=== PATIENT | male | born 1965 | race Caucasian/White ===

== ENCOUNTER 2016-09-09 19:13 | Inpatient (IN) | payer MEDICAID, OTHER ==
[~2016-09-09] VITALS: Ht 180.3 cm; Wt 79.0 kg
[~2016-09-09 19:13] MED LIST: FLUO-191 PO; LISI-661 PO; OLAN10TA3 PO; PROP10 PO
[2016-09-09 20:36] LABS: BASOPHILS % (AUTO) 0.3 % (0.0-2.0); EOSINOPHILS % (AUTO) 0.5 % (1.0-6.0); HEMATOCRIT 43.9 % (41-53); HEMOGLOBIN 14.5 g/dL (13.5-17.5); LYMPHOCYTES # (AUTO) 2.7 K/uL (1.0-4.8); LYMPHOCYTES % (AUTO) 25.7 % (22.0-44.0); MEAN CORPUSCULAR HEMOGLOBIN 29.3 pg (26.0-34.0); MEAN CORPUSCULAR VOLUME 89 fL (80-100); MONOCYTES # (AUTO) 0.6 K/uL (0.1-1.0); MONOCYTES % (AUTO) 5.9 % (2.0-9.0); NEUTROPHILS % (AUTO) 67.6 % (40.0-70.0); PLATELET COUNT (AUTO) 392 K/uL (150-450); RED BLOOD CELL COUNT(AUTO) 4.95 MIL/uL (4.50-5.90); RED CELL DISTRIBUTION WIDTH 15.1 % (11.5-14.5); WHITE BLOOD COUNT (AUTO) 10.4 K/uL (4.5-11.0)
[2016-09-09 20:47] LABS: ANION GAP 7 mmol/L (8-16); CALCIUM, TOTAL 9.5 mg/dL (8.8-10.5); CARBON DIOXIDE 28 mmol/L (22-29); CHLORIDE 101 mmol/L (98-107); CREATININE 1.38 mg/dL (0.60-1.30); GLOMERULAR FILTR. RATE CALC 55 mL/min (>60); POTASSIUM 4.3 mmol/L (3.5-5.1); SODIUM SERUM 136 mmol/L (136-145); UREA NITROGEN, BLOOD 21 mg/dL (7-18)
[2016-09-09 20:52] LABS: ALANINE AMINOTRANSFERASE 54 U/L (12-78); ALBUMIN 3.9 g/dL (3.4-5.0); ASPARTATE AMINOTRANSFERASE 28 U/L (15-37); BILIRUBIN,TOTAL 0.4 mg/dL (0.1-1.0); TOTAL PROTEIN, SERUM 7.6 g/dL (6.4-8.2)
[2016-09-09] MEDS ORDERED: DiphenhydrAMINE HCL 25 MG CAPSULE PO ONE (21:15)
[2016-09-09] MEDS ORDERED: HALOPERIDOL 5 MG TABLET PO ONE (21:15)
[2016-09-09] MEDS ORDERED: LORazepam 2 MG TABLET PO ONE (21:15)
[2016-09-10 09:41] VITALS: BP 138/70
[2016-09-10 13:57] VITALS: BP 138/85
[2016-09-10 16:22] VITALS: BP 122/73
[2016-09-10] MEDS: HALOPERIDOL 5 MG TABLET PO PRN (17:07)
[2016-09-10] MEDS: PROPRANOLOL HCL 20 MG TABLET PO SCH (17:07)
[2016-09-10] MEDS: LORazepam 2 MG TABLET PO PRN (17:07)
[2016-09-10] MEDS: ZOLPIDEM TARTRATE 10 MG TABLET PO PRN (20:55)
[2016-09-10] MEDS: OLANZapine 10 MG TABLET PO SCH (20:55)
[2016-09-11 06:49] VITALS: BP 126/87
[2016-09-11 08:15] VITALS: BP 134/79
[2016-09-11 08:35] LABS: ALANINE AMINOTRANSFERASE 45 U/L (12-78); ALBUMIN 3.6 g/dL (3.4-5.0); ANION GAP 10 mmol/L (8-16); ASPARTATE AMINOTRANSFERASE 21 U/L (15-37); BILIRUBIN,TOTAL 0.2 mg/dL (0.1-1.0); CALCIUM, TOTAL 9.2 mg/dL (8.8-10.5); CARBON DIOXIDE 25 mmol/L (22-29); CHLORIDE 104 mmol/L (98-107); CREATININE 1.13 mg/dL (0.60-1.30); GLOMERULAR FILTR. RATE CALC > 60 mL/min (>60); POTASSIUM 4.3 mmol/L (3.5-5.1); SODIUM SERUM 139 mmol/L (136-145); TOTAL PROTEIN, SERUM 6.7 g/dL (6.4-8.2); UREA NITROGEN, BLOOD 18 mg/dL (7-18)
[2016-09-11] MEDS: PROPRANOLOL HCL 20 MG TABLET PO SCH ×2 (09:56→16:32)
[2016-09-11] MEDS: FLUoxetine HCL 20 MG CAPSULE PO SCH (09:56)
[2016-09-11] MEDS: LISINOPRIL 10 MG TABLET PO SCH (09:56)
[2016-09-11 16:00] VITALS: BP 116/66
[2016-09-11] MEDS: HALOPERIDOL 5 MG TABLET PO PRN (16:32)
[2016-09-11] MEDS: LORazepam 2 MG TABLET PO PRN (16:32)
[2016-09-11] MEDS: ZOLPIDEM TARTRATE 10 MG TABLET PO PRN (20:28)
[2016-09-11] MEDS: OLANZapine 10 MG TABLET PO SCH (20:28)
[2016-09-12 06:34] VITALS: BP 118/69
[2016-09-12 08:15] VITALS: BP 114/61
[2016-09-12] MEDS: PROPRANOLOL HCL 20 MG TABLET PO SCH ×2 (09:00→17:10)
[2016-09-12] MEDS: FLUoxetine HCL 20 MG CAPSULE PO SCH (09:00)
[2016-09-12] MEDS: LISINOPRIL 10 MG TABLET PO SCH (09:00)
[2016-09-12] MEDS: LORazepam 2 MG TABLET PO PRN ×2 (14:09→20:28)
[2016-09-12 16:12] VITALS: BP 108/70
[2016-09-12] MEDS: OLANZapine 10 MG TABLET PO SCH (20:28)
[2016-09-12] MEDS: ZOLPIDEM TARTRATE 10 MG TABLET PO PRN (20:28)
[2016-09-13 06:45] VITALS: BP 126/83
[2016-09-13 08:45] VITALS: BP 121/89
[2016-09-13] MEDS: LORazepam 2 MG TABLET PO PRN ×3 (10:09→22:30)
[2016-09-13] MEDS: HALOPERIDOL 5 MG TABLET PO PRN ×2 (10:09→18:30)
[2016-09-13] MEDS: LISINOPRIL 10 MG TABLET PO SCH (10:09)
[2016-09-13] MEDS: FLUoxetine HCL 20 MG CAPSULE PO SCH (10:09)
[2016-09-13] MEDS: PROPRANOLOL HCL 20 MG TABLET PO SCH ×2 (10:09→17:05)
[2016-09-13] MEDS ORDERED: PROP20 PO (11:11)
[2016-09-13] MEDS ORDERED: INFLUENZA VIRUS VACCINE QVS 2016-17 (3YR+)/PF 60 MCG/0.5 ML SYRINGE IM ONE (11:15)
[2016-09-13 16:15] VITALS: BP 120/63
[2016-09-13] MEDS: ZOLPIDEM TARTRATE 10 MG TABLET PO PRN (20:15)
[2016-09-13] MEDS: OLANZapine 10 MG TABLET PO SCH (20:15)
[2016-09-14 06:39] VITALS: BP 132/88
[2016-09-14 08:15] VITALS: BP 116/76
[2016-09-14] MEDS: FLUoxetine HCL 20 MG CAPSULE PO SCH (09:40)
[2016-09-14] MEDS: PROPRANOLOL HCL 20 MG TABLET PO SCH (09:40)
[2016-09-14] MEDS: LORazepam 2 MG TABLET PO PRN (09:40)
[2016-09-14] MEDS: LISINOPRIL 10 MG TABLET PO SCH (09:40)
[2016-09-14] MEDS: HALOPERIDOL 5 MG TABLET PO PRN (09:40)
== END 2016-09-14 10:00 | disposition home or self-care (01) | DRG 750 ==
LOC: EMS 19:16 → AHU 09-10 07:56 → B3A 09-10 13:06
PROVIDERS: ADMIT Psychiatry & Neurology Psychiatry; ATTEND Psychiatry & Neurology Psychiatry
DX: F25.9 Schizoaffective disorder, unspecified (principal); R45.851 Suicidal ideations; G62.9 Polyneuropathy, unspecified; I10 Essential (primary) hypertension; F17.210 Nicotine dependence, cigarettes, uncomplicated; F11.90 Opioid use, unspecified, uncomplicated; Z79.899 Other long term (current) drug therapy; F32.9 Major depressive disorder, single episode, unspecified; Z28.20 Immunization not carried out because of patient decision for unspecified reason
CPT/HCPCS: 87081; 90471; 99285; G0480

== ENCOUNTER 2016-09-30 14:48 | Inpatient (IN) | payer MEDICAID, OTHER ==
[~2016-09-30] VITALS: Ht 180.3 cm; Wt 85.7 kg
[~2016-09-30 14:48] MED LIST changes: -PROP10 PO; +PROP20 PO
[2016-09-30] MEDS ORDERED: DOXY100C40 PO (15:31)
[2016-09-30] MEDS ORDERED: OLAN5TAB2 PO (15:31)
[2016-09-30] MEDS ORDERED: BENZ1TAB10 PO (15:31)
[2016-09-30] MEDS ORDERED: CEPH500 PO (15:31)
[2016-09-30 15:35] LABS: BASOPHILS % (AUTO) 0.5 % (0.0-2.0); EOSINOPHILS % (AUTO) 0.8 % (1.0-6.0); HEMATOCRIT 42.4 % (41-53); HEMOGLOBIN 13.8 g/dL (13.5-17.5); LYMPHOCYTES # (AUTO) 1.5 K/uL (1.0-4.8); LYMPHOCYTES % (AUTO) 19.7 % (22.0-44.0); MEAN CORPUSCULAR HEMOGLOBIN 28.9 pg (26.0-34.0); MEAN CORPUSCULAR HGB CONC 32.5 G/dL (31.0-37.0); MEAN CORPUSCULAR VOLUME 89 fL (80-100); MONOCYTES # (AUTO) 0.5 K/uL (0.1-1.0); MONOCYTES % (AUTO) 7.2 % (2.0-9.0); NEUTROPHILS # (AUTO) 5.4 K/uL (1.8-7.7); NEUTROPHILS % (AUTO) 71.8 % (40.0-70.0); PLATELET COUNT (AUTO) 286 K/uL (150-450); RED BLOOD CELL COUNT(AUTO) 4.76 MIL/uL (4.50-5.90); RED CELL DISTRIBUTION WIDTH 15.8 % (11.5-14.5); WHITE BLOOD COUNT (AUTO) 7.6 K/uL (4.5-11.0)
[2016-09-30 16:17] LABS: ANION GAP 11 mmol/L (8-16); CALCIUM, TOTAL 9.3 mg/dL (8.8-10.5); CARBON DIOXIDE 27 mmol/L (22-29); CHLORIDE 99 mmol/L (98-107); CREATININE 1.28 mg/dL (0.60-1.30); GLOMERULAR FILTR. RATE CALC 59 mL/min (>60); POTASSIUM 4.4 mmol/L (3.5-5.1); SODIUM SERUM 137 mmol/L (136-145); UREA NITROGEN, BLOOD 22 mg/dL (7-18)
[2016-09-30 16:24] LABS: ALANINE AMINOTRANSFERASE 24 U/L (12-78); ALBUMIN 3.9 g/dL (3.4-5.0); ASPARTATE AMINOTRANSFERASE 21 U/L (15-37); TOTAL PROTEIN, SERUM 7.5 g/dL (6.4-8.2)
[2016-09-30 16:36] LABS: BILIRUBIN,TOTAL 0.2 mg/dL (0.1-1.0)
[2016-09-30] MEDS ORDERED: OLANZapine 5 MG TABLET PO ONE (18:45)
[2016-09-30] MEDS ORDERED: LORazepam 2 MG TABLET PO ONE (18:45)
[2016-09-30] MEDS ORDERED: ZOLPIDEM TARTRATE 10 MG TABLET PO PRN (19:30)
[2016-09-30 21:05] VITALS: BP 131/81
[2016-09-30] MEDS: OLANZapine 10 MG TABLET PO SCH (21:20)
[2016-09-30] MEDS ORDERED: INFLUENZA VIRUS VACCINE QVS 2016-17 (3YR+)/PF 60 MCG/0.5 ML SYRINGE IM ONE (21:30)
[2016-10-01 06:51] VITALS: BP 122/75
[2016-10-01 08:15] VITALS: BP 125/65
[2016-10-01] MEDS: FLUoxetine HCL 20 MG CAPSULE PO SCH (09:01)
[2016-10-01] MEDS: NICOTINE 21 MG/24 HOUR PATCH TD SCH (09:07)
[2016-10-01] MEDS: BACITRACIN 28.4 GM OINTMENT TP SCH ×2 (09:08→17:04)
[2016-10-01 13:47] VITALS: BP 125/83
[2016-10-01 16:00] VITALS: BP 128/71
[2016-10-01] MEDS: OLANZapine 10 MG TABLET PO SCH (21:35)
[2016-10-02 08:02] VITALS: BP 112/60
[2016-10-02] MEDS: LORazepam 2 MG TABLET PO PRN (08:09)
[2016-10-02] MEDS: HALOPERIDOL 5 MG TABLET PO PRN (08:09)
[2016-10-02] MEDS: FLUoxetine HCL 20 MG CAPSULE PO SCH (08:09)
[2016-10-02] MEDS: NICOTINE 21 MG/24 HOUR PATCH TD SCH (08:13)
[2016-10-02] MEDS: BACITRACIN 28.4 GM OINTMENT TP SCH ×2 (11:09→16:07)
[2016-10-02 18:23] VITALS: BP 119/74
[2016-10-02] MEDS: OLANZapine 10 MG TABLET PO SCH (20:22)
[2016-10-03 08:00] VITALS: BP 126/75
[2016-10-03] MEDS: FLUoxetine HCL 20 MG CAPSULE PO SCH (09:37)
[2016-10-03] MEDS: NICOTINE 21 MG/24 HOUR PATCH TD SCH (09:38)
[2016-10-03] MEDS: LORazepam 2 MG TABLET PO PRN (09:39)
[2016-10-03] MEDS: BACITRACIN 28.4 GM OINTMENT TP SCH ×2 (09:56→16:20)
[2016-10-03 17:13] VITALS: BP 122/69
[2016-10-03] MEDS: OLANZapine 10 MG TABLET PO SCH (20:26)
[2016-10-04] MEDS: FLUoxetine HCL 20 MG CAPSULE PO SCH (08:53)
[2016-10-04] MEDS: NICOTINE 21 MG/24 HOUR PATCH TD SCH (08:53)
[2016-10-04] MEDS: BACITRACIN 28.4 GM OINTMENT TP SCH ×2 (08:58→15:58)
[2016-10-04 09:42] VITALS: BP 112/76
[2016-10-04] MEDS: LORazepam 2 MG TABLET PO PRN (15:56)
[2016-10-04 16:41] VITALS: BP 120/66
[2016-10-04] MEDS: OLANZapine 10 MG TABLET PO SCH (20:29)
[2016-10-05 08:30] VITALS: BP 119/74
[2016-10-05] MEDS: FLUoxetine HCL 20 MG CAPSULE PO SCH (09:14)
[2016-10-05] MEDS: NICOTINE 21 MG/24 HOUR PATCH TD SCH (09:16)
[2016-10-05] MEDS: LORazepam 2 MG TABLET PO PRN (09:16)
[2016-10-05] MEDS: BACITRACIN 28.4 GM OINTMENT TP SCH ×2 (09:16→17:22)
[2016-10-05 17:21] VITALS: BP 123/74
[2016-10-05] MEDS: OLANZapine 10 MG TABLET PO SCH (21:11)
[2016-10-06] MEDS: FLUoxetine HCL 20 MG CAPSULE PO SCH (09:12)
[2016-10-06] MEDS: LORazepam 2 MG TABLET PO PRN ×3 (09:12→20:02)
[2016-10-06] MEDS: NICOTINE 21 MG/24 HOUR PATCH TD SCH (09:14)
[2016-10-06] MEDS: BACITRACIN 28.4 GM OINTMENT TP SCH ×2 (09:14→16:24)
[2016-10-06 11:20] VITALS: BP 124/58
[2016-10-06] MEDS: HALOPERIDOL 5 MG TABLET PO PRN (18:05)
[2016-10-06] MEDS: OLANZapine 10 MG TABLET PO SCH (20:03)
[2016-10-06 22:10] VITALS: BP 119/64
[2016-10-07] MEDS: LORazepam 2 MG TABLET PO PRN ×2 (09:06→13:12)
[2016-10-07] MEDS: NICOTINE 21 MG/24 HOUR PATCH TD SCH (09:06)
[2016-10-07] MEDS: FLUoxetine HCL 20 MG CAPSULE PO SCH (09:06)
[2016-10-07 09:22] VITALS: BP 143/78
[2016-10-07] MEDS: BACITRACIN 28.4 GM OINTMENT TP SCH (09:52)
[2016-10-07] MEDS ORDERED: BACI1POW2 TP (12:15)
[2016-10-07] MEDS ORDERED: GABA-533 PO (23:23)
[2016-10-07] MEDS ORDERED: PROP20 PO (23:23)
[2016-10-07] MEDS ORDERED: LISI-662 PO (23:23)
== END 2016-10-07 15:00 | disposition home or self-care (01) | DRG 750 ==
LOC: EMS 14:49 → EEVIPCON 14:49 → B2S 20:00 → 3EI 10-01 13:10
PROVIDERS: ADMIT Psychiatry & Neurology Psychiatry; ATTEND Psychiatry & Neurology Psychiatry
DX: F25.9 Schizoaffective disorder, unspecified (principal); R45.851 Suicidal ideations; G62.9 Polyneuropathy, unspecified; I10 Essential (primary) hypertension; F15.90 Other stimulant use, unspecified, uncomplicated; F32.9 Major depressive disorder, single episode, unspecified; F17.210 Nicotine dependence, cigarettes, uncomplicated; Z59.0 Homelessness; Z79.899 Other long term (current) drug therapy; Z91.14 Patient's other noncompliance with medication regimen
CPT/HCPCS: 87081; 99285; 99406; G0480

== ENCOUNTER 2016-10-07 23:11 | Inpatient (IN) | payer MEDICAID, OTHER ==
[~2016-10-07] VITALS: Ht 177.8 cm; Wt 88.3 kg
[~2016-10-07 23:11] MED LIST changes: +BACI1POW2 TP; +BENZ1TAB10 PO; +CEPH500 PO; +DOXY100C40 PO; +OLAN5TAB2 PO
[2016-10-07] MEDS ORDERED: GABA-533 PO (23:23)
[2016-10-07] MEDS ORDERED: PROP20 PO (23:23)
[2016-10-07] MEDS ORDERED: LISI-662 PO (23:23)
[2016-10-08 00:01] LABS: BASOPHILS # (AUTO) 0.04 K/uL (0.00-0.20); BASOPHILS % (AUTO) 0.3 % (0.0-2.0); EOSINOPHILS % (AUTO) 0.85 % (1.0-6.0); HEMATOCRIT 39.6 % (41-53); HEMOGLOBIN 13.5 g/dL (13.5-17.5); LYMPHOCYTES # (AUTO) 2.9 K/uL (1.0-4.8); LYMPHOCYTES % (AUTO) 25.4 % (22.0-44.0); MEAN CORPUSCULAR HEMOGLOBIN 30.1 pg (26.0-34.0); MEAN CORPUSCULAR HGB CONC 34.1 G/dL (31.0-37.0); MEAN CORPUSCULAR VOLUME 88 fL (80-100); MONOCYTES # (AUTO) 0.9 K/uL (0.1-1.0); MONOCYTES % (AUTO) 7.9 % (2.0-9.0); NEUTROPHILS # (AUTO) 7.4 K/uL (1.8-7.7); NEUTROPHILS % (AUTO) 65.5 % (40.0-70.0); PLATELET COUNT (AUTO) 269 K/uL (150-450); RED BLOOD CELL COUNT(AUTO) 4.48 MIL/uL (4.50-5.90); RED CELL DISTRIBUTION WIDTH 16.2 % (11.5-14.5); WHITE BLOOD COUNT (AUTO) 11.4 K/uL (4.5-11.0)
[2016-10-08 00:11] LABS: ANION GAP 8 mmol/L (8-16); CALCIUM, TOTAL 8.8 mg/dL (8.8-10.5); CARBON DIOXIDE 29 mmol/L (22-29); CHLORIDE 105 mmol/L (98-107); CREATININE 1.55 mg/dL (0.60-1.30); GLOMERULAR FILTR. RATE CALC 48 mL/min (>60); POTASSIUM 3.9 mmol/L (3.5-5.1); SODIUM SERUM 142 mmol/L (136-145); UREA NITROGEN, BLOOD 37 mg/dL (7-18)
[2016-10-08 00:17] LABS: ALANINE AMINOTRANSFERASE 45 U/L (12-78); ALBUMIN 3.6 g/dL (3.4-5.0); ASPARTATE AMINOTRANSFERASE 15 U/L (15-37); BILIRUBIN,TOTAL 0.2 mg/dL (0.1-1.0); TOTAL PROTEIN, SERUM 6.8 g/dL (6.4-8.2)
[2016-10-08] MEDS ORDERED: LORazepam 2 MG TABLET PO ONE (02:00)
[2016-10-08] MEDS ORDERED: ZOLPIDEM TARTRATE 10 MG TABLET PO PRN (04:30)
[2016-10-08 04:49] VITALS: BP 117/62
[2016-10-08] MEDS: PROPRANOLOL HCL 20 MG TABLET PO SCH ×3 (09:00→16:32)
[2016-10-08] MEDS: LISINOPRIL 20 MG TABLET PO SCH ×2 (09:00→12:35)
[2016-10-08 09:40] VITALS: BP 137/81
[2016-10-08 12:09] LABS: GLUCOSE, URINE (UA) 250 mg/dL (NEGATIVE); KETONES,URINE NEGATIVE (NEGATIVE); LEUKOCYTE ESTERASE ,URINE NEGATIVE (NEGATIVE); OCCULT BLOOD,URINE NEGATIVE (NEGATIVE); PROTEIN,URINE NEGATIVE (NEGATIVE)
[2016-10-08 12:10] LABS: ADD UA MICROSCOPIC YES; APPEARANCE,URINE CLEAR (CLEAR)
[2016-10-08 12:19] LABS: RBC,URINE None Seen /HPF (0-2); WBC,URINE None Seen /HPF (0-5)
[2016-10-08 12:20] LABS: SQUAMOUS EPITHELIAL CELL,UR Rare /LPF (None Seen)
[2016-10-08 12:33] VITALS: BP 142/78
[2016-10-08] MEDS: LORazepam 2 MG TABLET PO PRN ×2 (12:36→16:51)
[2016-10-08 16:42] VITALS: BP 134/78
[2016-10-09 03:33] VITALS: BP 127/63
[2016-10-09] MEDS: LORazepam 2 MG TABLET PO PRN ×4 (03:43→20:40)
[2016-10-09] MEDS: PROPRANOLOL HCL 20 MG TABLET PO SCH ×3 (08:16→15:53)
[2016-10-09 09:40] VITALS: BP 115/63
[2016-10-09 16:03] VITALS: BP 106/68
[2016-10-09] MEDS: GABAPENTIN 400 MG CAPSULE PO SCH ×2 (16:06→20:10)
[2016-10-09] MEDS: OLANZapine 10 MG TABLET PO SCH (20:10)
[2016-10-10] MEDS: GABAPENTIN 400 MG CAPSULE PO SCH ×4 (08:48→20:30)
[2016-10-10] MEDS: FLUoxetine HCL 20 MG CAPSULE PO SCH (08:48)
[2016-10-10] MEDS: PROPRANOLOL HCL 20 MG TABLET PO SCH ×3 (08:48→16:28)
[2016-10-10] MEDS: LISINOPRIL 20 MG TABLET PO SCH (08:48)
[2016-10-10] MEDS: LORazepam 2 MG TABLET PO PRN ×3 (08:49→18:23)
[2016-10-10 09:41] VITALS: BP 142/85
[2016-10-10 13:14] VITALS: BP 103/59
[2016-10-10] MEDS: HALOPERIDOL 5 MG TABLET PO PRN (16:27)
[2016-10-10 19:31] VITALS: BP 119/77
[2016-10-10] MEDS: OLANZapine 10 MG TABLET PO SCH (20:30)
[2016-10-11 08:56] VITALS: BP 143/80
[2016-10-11] MEDS: LORazepam 2 MG TABLET PO PRN ×3 (09:07→20:37)
[2016-10-11] MEDS: PROPRANOLOL HCL 20 MG TABLET PO SCH ×3 (09:07→16:03)
[2016-10-11] MEDS: LISINOPRIL 20 MG TABLET PO SCH (09:07)
[2016-10-11] MEDS: GABAPENTIN 400 MG CAPSULE PO SCH ×4 (09:07→20:29)
[2016-10-11] MEDS: HALOPERIDOL 5 MG TABLET PO PRN (09:07)
[2016-10-11] MEDS: FLUoxetine HCL 20 MG CAPSULE PO SCH (09:07)
[2016-10-11 16:30] VITALS: BP 106/68
[2016-10-11] MEDS: OLANZapine 10 MG TABLET PO SCH (20:29)
[2016-10-12 08:42] VITALS: BP 134/80
[2016-10-12] MEDS: GABAPENTIN 400 MG CAPSULE PO SCH ×4 (09:01→20:38)
[2016-10-12] MEDS: PROPRANOLOL HCL 20 MG TABLET PO SCH ×3 (09:01→18:03)
[2016-10-12] MEDS: LORazepam 2 MG TABLET PO PRN ×3 (09:01→18:04)
[2016-10-12] MEDS: LISINOPRIL 20 MG TABLET PO SCH (09:01)
[2016-10-12] MEDS: FLUoxetine HCL 20 MG CAPSULE PO SCH (09:01)
[2016-10-12] MEDS: NICOTINE 21 MG/24 HOUR PATCH TD SCH (12:47)
[2016-10-12] MEDS: ChlorproMAZINE HCL 100 MG TABLET PO SCH (19:02)
[2016-10-12] MEDS: OLANZapine 10 MG TABLET PO SCH (20:38)
[2016-10-12 22:20] VITALS: BP 122/73
[2016-10-13] MEDS: LISINOPRIL 20 MG TABLET PO SCH (09:12)
[2016-10-13] MEDS: PROPRANOLOL HCL 20 MG TABLET PO SCH ×3 (09:12→15:54)
[2016-10-13] MEDS: ChlorproMAZINE HCL 100 MG TABLET PO SCH ×2 (09:13→16:32)
[2016-10-13] MEDS: FLUoxetine HCL 20 MG CAPSULE PO SCH (09:13)
[2016-10-13] MEDS: GABAPENTIN 400 MG CAPSULE PO SCH ×4 (09:13→20:33)
[2016-10-13] MEDS: NICOTINE 21 MG/24 HOUR PATCH TD SCH (09:18)
[2016-10-13] MEDS: LORazepam 2 MG TABLET PO PRN ×2 (09:19→15:55)
[2016-10-13 09:38] VITALS: BP 126/73
[2016-10-13 13:13] VITALS: BP 92/45
[2016-10-13 16:49] VITALS: BP 113/55
[2016-10-13] MEDS: OLANZapine 10 MG TABLET PO SCH (20:33)
[2016-10-14 08:00] VITALS: BP 129/78
[2016-10-14] MEDS: PROPRANOLOL HCL 20 MG TABLET PO SCH ×4 (08:57→16:05)
[2016-10-14] MEDS: LISINOPRIL 20 MG TABLET PO SCH (08:58)
[2016-10-14] MEDS: GABAPENTIN 400 MG CAPSULE PO SCH ×3 (08:58→16:05)
[2016-10-14] MEDS: FLUoxetine HCL 20 MG CAPSULE PO SCH (08:58)
[2016-10-14] MEDS: ChlorproMAZINE HCL 100 MG TABLET PO SCH ×2 (08:58→16:05)
[2016-10-14] MEDS: LORazepam 2 MG TABLET PO PRN (08:59)
[2016-10-14] MEDS: NICOTINE 21 MG/24 HOUR PATCH TD SCH (09:01)
[2016-10-14 13:00] VITALS: BP 96/55
[2016-10-14] MEDS ORDERED: CHLO100T24 PO (15:40)
[2016-10-14] MEDS ORDERED: PROP20 PO (15:45)
[2016-10-14 16:03] VITALS: BP 125/78
== END 2016-10-14 18:25 | disposition home or self-care (01) | DRG 750 ==
LOC: EMS 23:14 → 3EI 10-08 04:00
PROVIDERS: ADMIT Psychiatry & Neurology Psychiatry; ATTEND Psychiatry & Neurology Psychiatry
DX: F25.9 Schizoaffective disorder, unspecified (principal); R45.851 Suicidal ideations; Z59.0 Homelessness; I10 Essential (primary) hypertension; F32.9 Major depressive disorder, single episode, unspecified; N28.9 Disorder of kidney and ureter, unspecified; F17.210 Nicotine dependence, cigarettes, uncomplicated; F15.90 Other stimulant use, unspecified, uncomplicated; Z79.899 Other long term (current) drug therapy
CPT/HCPCS: 87081; 99285; G0480

== ENCOUNTER 2016-10-14 21:28 | Inpatient (IN) | payer MEDICAID, OTHER ==
[~2016-10-14] VITALS: Ht 177.8 cm; Wt 92.1 kg
[~2016-10-14 21:28] MED LIST changes: -BACI1POW2 TP; -BENZ1TAB10 PO; -CEPH500 PO; +CHLO100T24 PO; -DOXY100C40 PO; +GABA-533 PO; -LISI-661 PO; +LISI-662 PO; -OLAN5TAB2 PO
[2016-10-14 21:58] LABS: BASOPHILS % (AUTO) 0.3 % (0.0-2.0); EOSINOPHILS % (AUTO) 0.8 % (1.0-6.0); HEMATOCRIT 37.8 % (41-53); HEMOGLOBIN 12.4 g/dL (13.5-17.5); LYMPHOCYTES # (AUTO) 2.1 K/uL (1.0-4.8); LYMPHOCYTES % (AUTO) 16.7 % (22.0-44.0); MEAN CORPUSCULAR HEMOGLOBIN 29.2 pg (26.0-34.0); MEAN CORPUSCULAR HGB CONC 32.8 G/dL (31.0-37.0); MEAN CORPUSCULAR VOLUME 89 fL (80-100); MONOCYTES % (AUTO) 7.8 % (2.0-9.0); NEUTROPHILS # (AUTO) 9.4 K/uL (1.8-7.7); NEUTROPHILS % (AUTO) 74.4 % (40.0-70.0); PLATELET COUNT (AUTO) 222 K/uL (150-450); RED BLOOD CELL COUNT(AUTO) 4.26 MIL/uL (4.50-5.90); RED CELL DISTRIBUTION WIDTH 15.9 % (11.5-14.5); WHITE BLOOD COUNT (AUTO) 12.7 K/uL (4.5-11.0)
[2016-10-14 22:12] LABS: ANION GAP 12 mmol/L (8-16); CALCIUM, TOTAL 8.9 mg/dL (8.8-10.5); CARBON DIOXIDE 26 mmol/L (22-29); CHLORIDE 105 mmol/L (98-107); CREATININE 1.43 mg/dL (0.60-1.30); GLOMERULAR FILTR. RATE CALC 52 mL/min (>60); POTASSIUM 4.7 mmol/L (3.5-5.1); SODIUM SERUM 143 mmol/L (136-145); UREA NITROGEN, BLOOD 34 mg/dL (7-18)
[2016-10-14 22:19] LABS: ALANINE AMINOTRANSFERASE 48 U/L (12-78); ALBUMIN 3.4 g/dL (3.4-5.0); ASPARTATE AMINOTRANSFERASE 18 U/L (15-37); BILIRUBIN,TOTAL 0.3 mg/dL (0.1-1.0); TOTAL PROTEIN, SERUM 6.7 g/dL (6.4-8.2)
[2016-10-15] MEDS ORDERED: HALOPERIDOL 5 MG TABLET PO PRN (02:45)
[2016-10-15] MEDS ORDERED: ZOLPIDEM TARTRATE 10 MG TABLET PO PRN (02:45)
[2016-10-15 07:38] VITALS: BP 126/83
[2016-10-15 08:01] VITALS: BP 117/60
[2016-10-15] MEDS ORDERED: PROPRANOLOL HCL 10 MG TABLET PO ONE (10:15)
[2016-10-15] MEDS: LISINOPRIL 20 MG TABLET PO SCH (10:32)
[2016-10-15] MEDS: LORazepam 2 MG TABLET PO PRN ×2 (10:32→17:16)
[2016-10-15] MEDS: NICOTINE 21 MG/24 HOUR PATCH TD SCH (10:32)
[2016-10-15] MEDS: PROPRANOLOL HCL 10 MG TABLET PO SCH ×2 (13:00→17:16)
[2016-10-15] MEDS: GABAPENTIN 400 MG CAPSULE PO SCH ×3 (13:00→21:00)
[2016-10-15 16:00] VITALS: BP 132/68
[2016-10-15] MEDS: ChlorproMAZINE HCL 100 MG TABLET PO SCH (17:16)
[2016-10-15 18:00] VITALS: BP 109/66
[2016-10-15 18:15] VITALS: BP 128/67
[2016-10-15 18:30] VITALS: BP 119/59
[2016-10-16 01:08] VITALS: BP 109/63
[2016-10-16 01:09] VITALS: BP 109/63
[2016-10-16 05:00] VITALS: BP 105/72
[2016-10-16] MEDS: FLUoxetine HCL 20 MG CAPSULE PO SCH (08:20)
[2016-10-16] MEDS: PROPRANOLOL HCL 10 MG TABLET PO SCH ×2 (08:20→13:44)
[2016-10-16] MEDS: ChlorproMAZINE HCL 100 MG TABLET PO SCH ×2 (08:20→17:33)
[2016-10-16] MEDS: LISINOPRIL 20 MG TABLET PO SCH (08:20)
[2016-10-16] MEDS: NICOTINE 21 MG/24 HOUR PATCH TD SCH (08:21)
[2016-10-16] MEDS: GABAPENTIN 400 MG CAPSULE PO SCH ×4 (08:21→20:58)
[2016-10-16 08:23] VITALS: BP 111/64
[2016-10-16] MEDS: TraMADol HCL 50 MG TABLET PO PRN (14:12)
[2016-10-16] MEDS: LORazepam 2 MG TABLET PO PRN (14:22)
[2016-10-16 16:00] VITALS: BP 106/62
[2016-10-17 06:29] VITALS: BP 109/61
[2016-10-17 08:01] VITALS: BP 101/59
[2016-10-17] MEDS: PROPRANOLOL HCL 10 MG TABLET PO SCH ×2 (09:00→16:16)
[2016-10-17] MEDS: LISINOPRIL 20 MG TABLET PO SCH (09:00)
[2016-10-17] MEDS: ChlorproMAZINE HCL 100 MG TABLET PO SCH ×2 (09:31→16:16)
[2016-10-17] MEDS: GABAPENTIN 400 MG CAPSULE PO SCH ×4 (09:31→20:26)
[2016-10-17] MEDS: FLUoxetine HCL 20 MG CAPSULE PO SCH (09:32)
[2016-10-17] MEDS: NICOTINE 21 MG/24 HOUR PATCH TD SCH (09:32)
[2016-10-17 09:42] VITALS: BP 101/59
[2016-10-17 10:04] VITALS: BP 127/66
[2016-10-17] MEDS: LORazepam 2 MG TABLET PO PRN ×2 (10:05→16:37)
[2016-10-17 16:05] VITALS: BP 110/71
[2016-10-17] MEDS: TraMADol HCL 50 MG TABLET PO PRN (16:38)
[2016-10-17 16:41] VITALS: BP 118/76
[2016-10-18 06:35] VITALS: BP 135/76
[2016-10-18 08:01] VITALS: BP 106/51
[2016-10-18] MEDS: LISINOPRIL 20 MG TABLET PO SCH (09:00)
[2016-10-18] MEDS: PROPRANOLOL HCL 10 MG TABLET PO SCH ×2 (09:00→16:15)
[2016-10-18] MEDS: GABAPENTIN 400 MG CAPSULE PO SCH ×4 (09:11→20:25)
[2016-10-18] MEDS: FLUoxetine HCL 20 MG CAPSULE PO SCH (09:11)
[2016-10-18] MEDS: NICOTINE 21 MG/24 HOUR PATCH TD SCH (09:11)
[2016-10-18] MEDS: ChlorproMAZINE HCL 100 MG TABLET PO SCH ×2 (09:11→16:15)
[2016-10-18 09:28] VITALS: BP 148/87
[2016-10-18] MEDS: LORazepam 2 MG TABLET PO PRN ×2 (09:57→16:41)
[2016-10-18 16:12] VITALS: BP 137/77
[2016-10-18] MEDS: TraMADol HCL 50 MG TABLET PO PRN (16:15)
[2016-10-19 07:10] VITALS: BP 112/75
[2016-10-19 08:01] VITALS: BP 120/73
[2016-10-19] MEDS: LISINOPRIL 20 MG TABLET PO SCH (09:33)
[2016-10-19] MEDS: ChlorproMAZINE HCL 100 MG TABLET PO SCH (09:33)
[2016-10-19] MEDS: FLUoxetine HCL 20 MG CAPSULE PO SCH (09:33)
[2016-10-19] MEDS: NICOTINE 21 MG/24 HOUR PATCH TD SCH (09:34)
[2016-10-19] MEDS: PROPRANOLOL HCL 10 MG TABLET PO SCH (09:34)
[2016-10-19] MEDS: GABAPENTIN 400 MG CAPSULE PO SCH (09:34)
== END 2016-10-19 12:17 | disposition home or self-care (01) | DRG 750 ==
LOC: EMS 21:31 → B3A 10-15 03:15
PROVIDERS: ADMIT Psychiatry & Neurology Psychiatry; ATTEND Psychiatry & Neurology Psychiatry
DX: F25.9 Schizoaffective disorder, unspecified (principal); R45.851 Suicidal ideations; G62.9 Polyneuropathy, unspecified; I10 Essential (primary) hypertension; S02.2XXA Fracture of nasal bones, initial encounter for closed fracture; D64.9 Anemia, unspecified; F32.9 Major depressive disorder, single episode, unspecified; F17.210 Nicotine dependence, cigarettes, uncomplicated; F15.90 Other stimulant use, unspecified, uncomplicated; W19.XXXA Unspecified fall, initial encounter; Z59.0 Homelessness; Y93.89 Activity, other specified; Y92.89 Other specified places as the place of occurrence of the external cause; Y99.8 Other external cause status; Z79.899 Other long term (current) drug therapy
CPT/HCPCS: 87081; 99285; 99406; G0480

== ENCOUNTER 2016-10-15 19:06 | Emergency (ER) | payer MEDICAID, OTHER ==
[~2016-10-15] VITALS: Ht 185.4 cm; Wt 95.0 kg
[2016-10-15] MEDS ORDERED: SODIUM CHLORIDE 0.9% 250 ML IRRIG SOLUTION BOTTLE IRRIG ONE (20:00)
[2016-10-15] MEDS ORDERED: SODIUM CHLORIDE 0.9% 1,000 ML IV ONE (20:00)
[2016-10-15 20:08] LABS: APPEARANCE,URINE CLEAR (CLEAR); GLUCOSE, URINE (UA) NEGATIVE (NEGATIVE); KETONES,URINE NEGATIVE (NEGATIVE); LEUKOCYTE ESTERASE ,URINE NEGATIVE (NEGATIVE); OCCULT BLOOD,URINE NEGATIVE (NEGATIVE); PROTEIN,URINE NEGATIVE (NEGATIVE)
[2016-10-15 20:10] LABS: ADD UA MICROSCOPIC NO
[2016-10-15 20:16] LABS: BASOPHILS % (AUTO) 0.3 % (0.0-2.0); EOSINOPHILS % (AUTO) 1.2 % (1.0-6.0); HEMATOCRIT 39.3 % (41-53); LYMPHOCYTES # (AUTO) 2.3 K/uL (1.0-4.8); LYMPHOCYTES % (AUTO) 22.4 % (22.0-44.0); MEAN CORPUSCULAR HEMOGLOBIN 29.4 pg (26.0-34.0); MEAN CORPUSCULAR VOLUME 89 fL (80-100); MONOCYTES # (AUTO) 0.8 K/uL (0.1-1.0); MONOCYTES % (AUTO) 7.7 % (2.0-9.0); NEUTROPHILS % (AUTO) 68.4 % (40.0-70.0); PLATELET COUNT (AUTO) 242 K/uL (150-450); RED BLOOD CELL COUNT(AUTO) 4.41 MIL/uL (4.50-5.90); RED CELL DISTRIBUTION WIDTH 16.1 % (11.5-14.5); WHITE BLOOD COUNT (AUTO) 10.3 K/uL (4.5-11.0)
[2016-10-15 20:39] LABS: ANION GAP 7 mmol/L (8-16); CALCIUM, TOTAL 8.9 mg/dL (8.8-10.5); CARBON DIOXIDE 30 mmol/L (22-29); CHLORIDE 103 mmol/L (98-107); CREATININE 1.32 mg/dL (0.60-1.30); GLOMERULAR FILTR. RATE CALC 57 mL/min (>60); POTASSIUM 4.3 mmol/L (3.5-5.1); SODIUM SERUM 140 mmol/L (136-145); UREA NITROGEN, BLOOD 28 mg/dL (7-18)
[2016-10-15 20:45] LABS: ALANINE AMINOTRANSFERASE 41 U/L (12-78); ALBUMIN 3.5 g/dL (3.4-5.0); ASPARTATE AMINOTRANSFERASE 17 U/L (15-37); BILIRUBIN,TOTAL 0.3 mg/dL (0.1-1.0); TOTAL PROTEIN, SERUM 7.1 g/dL (6.4-8.2)
[2016-10-15] MEDS ORDERED: PERTUSS(ACELL),DIPH,TET VAC/PF 0.5 ML VIAL IM ONE (21:00)
[2016-10-15] MEDS ORDERED: HYDROCODONE/ACETAMINOPHEN 5-325 MG TABLET PO ONE (21:00)
[2016-10-15] MEDS ORDERED: CEPHALEXIN MONOHYDRATE 250 MG/5 ML SUSPENSION ORAL.SYG PO ONE (22:45)
[2016-10-15 23:15] VITALS: BP 99/65
== END 2016-10-15 23:34 | disposition home or self-care (01) ==
LOC: EMS 19:14
DX: S02.2XXA Fracture of nasal bones, initial encounter for closed fracture (principal); S01.21XA Laceration without foreign body of nose, initial encounter; F17.210 Nicotine dependence, cigarettes, uncomplicated; F25.9 Schizoaffective disorder, unspecified; R55 Syncope and collapse; W19.XXXA Unspecified fall, initial encounter; Y93.89 Activity, other specified; Y92.89 Other specified places as the place of occurrence of the external cause; Y99.8 Other external cause status
CPT/HCPCS: 12001; 36415; 70450; 70486; 72125; 80053; 80307; 81003; 85025; 90715; 93005; 96360; 96361; 96372; 99285; 99406; G0480; J7030

== ENCOUNTER 2016-11-03 21:39 | Inpatient (IN) | payer MEDICAID, OTHER ==
[~2016-11-03] VITALS: Ht 177.8 cm; Wt 85.5 kg
[~2016-11-03 21:39] MED LIST changes: -OLAN10TA3 PO
[2016-11-03] MEDS ORDERED: ZOLPIDEM TARTRATE 10 MG TABLET PO PRN (23:45)
[2016-11-03] MEDS ORDERED: LORazepam 2 MG/ML VIAL IM ONE (23:45)
[2016-11-03] MEDS ORDERED: HALOPERIDOL 5 MG TABLET PO PRN (23:45)
[2016-11-03] MEDS ORDERED: DiphenhydrAMINE HCL 50 MG/ML VIAL IM ONE (23:45)
[2016-11-03] MEDS ORDERED: HALOPERIDOL LACTATE 5 MG/ML VIAL IM ONE (23:45)
[2016-11-04] MEDS: LORazepam 2 MG TABLET PO PRN (00:08)
[2016-11-04 01:46] VITALS: BP 128/67
[2016-11-04] MEDS ORDERED: INFLUENZA VIRUS VACCINE QVS 2016-17 (3YR+)/PF 60 MCG/0.5 ML SYRINGE IM ONE (02:30)
[2016-11-04] MEDS ORDERED: -PHARMACY VACCINE NOTE- MISC ONE ×2 (02:45)
[2016-11-04 08:08] VITALS: BP 126/79
[2016-11-04 10:26] LABS: BASOPHILS % (AUTO) 0.2 % (0.0-2.0); EOSINOPHILS % (AUTO) 1.3 % (1.0-6.0); HEMATOCRIT 40.8 % (41-53); HEMOGLOBIN 13.4 g/dL (13.5-17.5); LYMPHOCYTES # (AUTO) 1.6 K/uL (1.0-4.8); LYMPHOCYTES % (AUTO) 22.7 % (22.0-44.0); MEAN CORPUSCULAR HEMOGLOBIN 29.1 pg (26.0-34.0); MEAN CORPUSCULAR HGB CONC 32.9 G/dL (31.0-37.0); MEAN CORPUSCULAR VOLUME 88 fL (80-100); MONOCYTES # (AUTO) 0.4 K/uL (0.1-1.0); MONOCYTES % (AUTO) 5.4 % (2.0-9.0); NEUTROPHILS # (AUTO) 5.1 K/uL (1.8-7.7); NEUTROPHILS % (AUTO) 70.4 % (40.0-70.0); PLATELET COUNT (AUTO) 276 K/uL (150-450); RED BLOOD CELL COUNT(AUTO) 4.62 MIL/uL (4.50-5.90); RED CELL DISTRIBUTION WIDTH 15.7 % (11.5-14.5); WHITE BLOOD COUNT (AUTO) 7.3 K/uL (4.5-11.0)
[2016-11-04 10:40] LABS: ALANINE AMINOTRANSFERASE 16 U/L (12-78); ALBUMIN 3.4 g/dL (3.4-5.0); ANION GAP 7 mmol/L (8-16); ASPARTATE AMINOTRANSFERASE 12 U/L (15-37); BILIRUBIN,TOTAL 0.4 mg/dL (0.1-1.0); CALCIUM, TOTAL 8.2 mg/dL (8.8-10.5); CARBON DIOXIDE 28 mmol/L (22-29); CHLORIDE 106 mmol/L (98-107); CREATININE 1.02 mg/dL (0.60-1.30); GLOMERULAR FILTR. RATE CALC > 60 mL/min (>60); SODIUM SERUM 141 mmol/L (136-145); TOTAL PROTEIN, SERUM 6.6 g/dL (6.4-8.2); UREA NITROGEN, BLOOD 14 mg/dL (7-18)
[2016-11-04] MEDS: ChlorproMAZINE HCL 100 MG TABLET PO SCH (16:32)
[2016-11-04 21:41] VITALS: BP 128/82
[2016-11-04] MEDS ORDERED: LISINOPRIL 20 MG TABLET PO PRN (21:45)
[2016-11-05 08:30] VITALS: BP 160/95
[2016-11-05] MEDS: FLUoxetine HCL 20 MG CAPSULE PO SCH (10:30)
[2016-11-05] MEDS: ChlorproMAZINE HCL 100 MG TABLET PO SCH ×2 (10:30→16:22)
[2016-11-05 16:20] VITALS: BP 120/87
[2016-11-06 09:56] VITALS: BP 111/76
[2016-11-06] MEDS: FLUoxetine HCL 20 MG CAPSULE PO SCH (10:02)
[2016-11-06] MEDS: ChlorproMAZINE HCL 100 MG TABLET PO SCH ×2 (10:02→16:20)
[2016-11-06] MEDS: LORazepam 2 MG TABLET PO PRN ×2 (10:58→16:20)
[2016-11-06 16:35] VITALS: BP 93/69
[2016-11-07 08:49] VITALS: BP 126/77
[2016-11-07] MEDS: ChlorproMAZINE HCL 100 MG TABLET PO SCH ×2 (09:14→16:35)
[2016-11-07] MEDS: FLUoxetine HCL 20 MG CAPSULE PO SCH (09:14)
[2016-11-07] MEDS: LORazepam 2 MG TABLET PO PRN ×2 (09:15→15:41)
[2016-11-07 16:17] VITALS: BP 111/71
[2016-11-07 16:19] VITALS: BP 111/71
[2016-11-08 08:41] VITALS: BP 119/75
[2016-11-08] MEDS: ChlorproMAZINE HCL 100 MG TABLET PO SCH ×2 (09:53→16:06)
[2016-11-08] MEDS: FLUoxetine HCL 20 MG CAPSULE PO SCH (09:53)
[2016-11-08] MEDS: LORazepam 2 MG TABLET PO PRN ×2 (11:31→16:06)
[2016-11-08 18:11] VITALS: BP 124/79
[2016-11-09 08:29] VITALS: BP 101/53
[2016-11-09] MEDS ORDERED: LISINOPRIL 20 MG TABLET PO SCH (09:00)
[2016-11-09] MEDS: ChlorproMAZINE HCL 100 MG TABLET PO SCH (09:32)
[2016-11-09] MEDS: FLUoxetine HCL 20 MG CAPSULE PO SCH (09:33)
[2016-11-09] MEDS: LORazepam 2 MG TABLET PO PRN ×2 (09:34→13:31)
[2016-11-10] MEDS ORDERED: PROP20 PO (17:57)
== END 2016-11-09 15:10 | disposition home or self-care (01) | DRG 750 ==
LOC: EMS 21:41 → 3EI 23:45
PROVIDERS: ADMIT Psychiatry & Neurology Psychiatry; ATTEND Psychiatry & Neurology Psychiatry
DX: F25.9 Schizoaffective disorder, unspecified (principal); G62.9 Polyneuropathy, unspecified; R45.851 Suicidal ideations; I10 Essential (primary) hypertension; F15.90 Other stimulant use, unspecified, uncomplicated; F11.90 Opioid use, unspecified, uncomplicated; F32.9 Major depressive disorder, single episode, unspecified; F17.210 Nicotine dependence, cigarettes, uncomplicated; Z91.14 Patient's other noncompliance with medication regimen; Z59.0 Homelessness; Z28.21 Immunization not carried out because of patient refusal; Z79.899 Other long term (current) drug therapy
CPT/HCPCS: 87081; 99285; G0480; J1200; J1630; J2060

== ENCOUNTER 2016-11-10 17:24 | Inpatient (IN) | payer MEDICAID, OTHER ==
[~2016-11-10] VITALS: Ht 180.3 cm; Wt 87.8 kg
[~2016-11-10 17:24] MED LIST changes: -GABA-533 PO; -PROP20 PO
[2016-11-10] MEDS ORDERED: PROP20 PO (17:57)
[2016-11-10 19:06] LABS: BASOPHILS # (AUTO) 0.13 K/uL (0.00-0.20); BASOPHILS % (AUTO) 1.4 % (0.0-2.0); EOSINOPHILS # (AUTO) 0.12 K/uL (0.00-0.70); EOSINOPHILS % (AUTO) 1.33 % (1.0-6.0); HEMATOCRIT 40.6 % (41-53); HEMOGLOBIN 13.7 g/dL (13.5-17.5); LYMPHOCYTES # (AUTO) 2.5 K/uL (1.0-4.8); LYMPHOCYTES % (AUTO) 28.7 % (22.0-44.0); MEAN CORPUSCULAR HEMOGLOBIN 29.5 pg (26.0-34.0); MEAN CORPUSCULAR HGB CONC 33.7 G/dL (31.0-37.0); MEAN CORPUSCULAR VOLUME 88 fL (80-100); MONOCYTES # (AUTO) 0.8 K/uL (0.1-1.0); MONOCYTES % (AUTO) 8.8 % (2.0-9.0); NEUTROPHILS # (AUTO) 5.2 K/uL (1.8-7.7); NEUTROPHILS % (AUTO) 59.7 % (40.0-70.0); PLATELET COUNT (AUTO) 288 K/uL (150-450); RED BLOOD CELL COUNT(AUTO) 4.63 MIL/uL (4.50-5.90); WHITE BLOOD COUNT (AUTO) 8.7 K/uL (4.5-11.0)
[2016-11-10 19:18] LABS: ANION GAP 7 mmol/L (8-16); CALCIUM, TOTAL 9.3 mg/dL (8.8-10.5); CARBON DIOXIDE 29 mmol/L (22-29); CHLORIDE 104 mmol/L (98-107); CREATININE 1.19 mg/dL (0.60-1.30); GLOMERULAR FILTR. RATE CALC > 60 mL/min (>60); SODIUM SERUM 140 mmol/L (136-145); UREA NITROGEN, BLOOD 19 mg/dL (7-18)
[2016-11-10 19:23] LABS: ALANINE AMINOTRANSFERASE 16 U/L (12-78); ALBUMIN 3.9 g/dL (3.4-5.0); ASPARTATE AMINOTRANSFERASE 11 U/L (15-37); BILIRUBIN,TOTAL 0.2 mg/dL (0.1-1.0); TOTAL PROTEIN, SERUM 7.4 g/dL (6.4-8.2)
[2016-11-10] MEDS ORDERED: DiphenhydrAMINE HCL 50 MG/ML VIAL IM ONE (20:00)
[2016-11-10] MEDS ORDERED: HALOPERIDOL LACTATE 5 MG/ML VIAL IM ONE (20:00)
[2016-11-10] MEDS ORDERED: LORazepam 2 MG/ML VIAL IM ONE (20:00)
[2016-11-11 00:16] VITALS: BP 138/89
[2016-11-11] MEDS ORDERED: -PHARMACY VACCINE NOTE- MISC ONE ×2 (00:30)
[2016-11-11] MEDS ORDERED: INFLUENZA VIRUS VACCINE QVS 2016-17 (3YR+)/PF 60 MCG/0.5 ML SYRINGE IM ONE (00:30)
[2016-11-11 01:16] LABS: APPEARANCE,URINE CLEAR (CLEAR); GLUCOSE, URINE (UA) NEGATIVE (NEGATIVE); KETONES,URINE NEGATIVE (NEGATIVE); LEUKOCYTE ESTERASE ,URINE NEGATIVE (NEGATIVE); OCCULT BLOOD,URINE NEGATIVE (NEGATIVE); PROTEIN,URINE NEGATIVE (NEGATIVE)
[2016-11-11 01:18] LABS: ADD UA MICROSCOPIC NO
[2016-11-11 20:04] VITALS: BP 115/82
[2016-11-12 08:00] VITALS: BP 130/77
[2016-11-12] MEDS: HALOPERIDOL 5 MG TABLET PO PRN ×2 (09:09→13:30)
[2016-11-12] MEDS: LORazepam 2 MG TABLET PO PRN ×3 (09:09→17:31)
[2016-11-12 16:30] VITALS: BP 126/71
[2016-11-12] MEDS: ChlorproMAZINE HCL 100 MG TABLET PO SCH (17:25)
[2016-11-12] MEDS: ZOLPIDEM TARTRATE 10 MG TABLET PO PRN (22:52)
[2016-11-13 08:00] VITALS: BP 118/76
[2016-11-13] MEDS: ChlorproMAZINE HCL 100 MG TABLET PO SCH ×2 (08:34→16:32)
[2016-11-13] MEDS: FLUoxetine HCL 20 MG CAPSULE PO SCH (08:34)
[2016-11-13] MEDS: LORazepam 2 MG TABLET PO PRN ×2 (08:35→14:07)
[2016-11-13] MEDS: HALOPERIDOL 5 MG TABLET PO PRN (14:07)
[2016-11-13 17:34] VITALS: BP 117/79
[2016-11-13] MEDS: ZOLPIDEM TARTRATE 10 MG TABLET PO PRN (21:25)
[2016-11-14 08:08] VITALS: BP 100/67
[2016-11-14] MEDS: ChlorproMAZINE HCL 100 MG TABLET PO SCH ×2 (09:07→16:22)
[2016-11-14] MEDS: FLUoxetine HCL 20 MG CAPSULE PO SCH (09:10)
[2016-11-14] MEDS: LORazepam 2 MG TABLET PO PRN ×3 (09:11→17:13)
[2016-11-14 16:39] VITALS: BP 114/71
[2016-11-15 08:00] VITALS: BP 119/76
[2016-11-15] MEDS: ChlorproMAZINE HCL 100 MG TABLET PO SCH ×2 (08:55→16:47)
[2016-11-15] MEDS: FLUoxetine HCL 20 MG CAPSULE PO SCH (08:55)
[2016-11-15] MEDS: HALOPERIDOL 5 MG TABLET PO PRN ×3 (08:58→18:02)
[2016-11-15] MEDS: LORazepam 2 MG TABLET PO PRN ×3 (08:58→18:02)
[2016-11-15 17:36] VITALS: BP 136/84
[2016-11-16 08:04] VITALS: BP 118/71
[2016-11-16] MEDS: FLUoxetine HCL 20 MG CAPSULE PO SCH (08:48)
[2016-11-16] MEDS: ChlorproMAZINE HCL 100 MG TABLET PO SCH (08:48)
[2016-11-16] MEDS: LORazepam 2 MG TABLET PO PRN (08:52)
== END 2016-11-16 12:30 | disposition home or self-care (01) | DRG 750 ==
LOC: EMS 17:25 → 3EC 22:31
PROVIDERS: ADMIT Psychiatry & Neurology Psychiatry; ATTEND Psychiatry & Neurology Psychiatry
DX: F25.9 Schizoaffective disorder, unspecified (principal); R45.851 Suicidal ideations; G62.9 Polyneuropathy, unspecified; I10 Essential (primary) hypertension; F41.9 Anxiety disorder, unspecified; F31.9 Bipolar disorder, unspecified; F17.210 Nicotine dependence, cigarettes, uncomplicated; Z59.0 Homelessness; Z79.899 Other long term (current) drug therapy; Z87.81 Personal history of (healed) traumatic fracture
CPT/HCPCS: 87081; 96372; 99285; G0480; J1200; J1630; J2060

== ENCOUNTER 2016-11-27 16:14 | Inpatient (IN) | payer MEDICAID ==
[~2016-11-27] VITALS: Ht 180.3 cm; Wt 84.7 kg
[~2016-11-27 16:14] MED LIST changes: -LISI-662 PO
[2016-11-27] MEDS ORDERED: LORazepam 2 MG TABLET PO ONE (17:45)
[2016-11-27] MEDS ORDERED: LORazepam 2 MG TABLET ONE (17:46)
[2016-11-27 17:58] LABS: BASOPHILS % (AUTO) 0.5 % (0.0-2.0); EOSINOPHILS % (AUTO) 1.5 % (1.0-6.0); HEMATOCRIT 43.5 % (41-53); LYMPHOCYTES # (AUTO) 5.4 K/uL (1.0-4.8); LYMPHOCYTES % (AUTO) 41.6 % (22.0-44.0); MEAN CORPUSCULAR HEMOGLOBIN 28.8 pg (26.0-34.0); MEAN CORPUSCULAR HGB CONC 32.1 G/dL (31.0-37.0); MEAN CORPUSCULAR VOLUME 90 fL (80-100); MONOCYTES % (AUTO) 7.9 % (2.0-9.0); NEUTROPHILS # (AUTO) 6.3 K/uL (1.8-7.7); NEUTROPHILS % (AUTO) 48.5 % (40.0-70.0); PLATELET COUNT (AUTO) 357 K/uL (150-450); RED BLOOD CELL COUNT(AUTO) 4.86 MIL/uL (4.50-5.90)
[2016-11-27 18:12] LABS: ANION GAP 14 mmol/L (8-16); CALCIUM, TOTAL 9.7 mg/dL (8.8-10.5); CARBON DIOXIDE 26 mmol/L (22-29); CHLORIDE 106 mmol/L (98-107); CREATININE 1.42 mg/dL (0.60-1.30); GLOMERULAR FILTR. RATE CALC 53 mL/min (>60); SODIUM SERUM 146 mmol/L (136-145); UREA NITROGEN, BLOOD 12 mg/dL (7-18)
[2016-11-27 18:18] LABS: ALANINE AMINOTRANSFERASE 25 U/L (12-78); ALBUMIN 4.2 g/dL (3.4-5.0); ASPARTATE AMINOTRANSFERASE 23 U/L (15-37); BILIRUBIN,TOTAL 0.4 mg/dL (0.1-1.0)
[2016-11-27] MEDS ORDERED: LORazepam 2 MG/ML VIAL IM ONE (19:30)
[2016-11-27] MEDS ORDERED: HALOPERIDOL LACTATE 5 MG/ML VIAL IM ONE (19:30)
[2016-11-27] MEDS ORDERED: LORazepam 2 MG TABLET PO PRN (19:45)
[2016-11-27] MEDS ORDERED: HALOPERIDOL 5 MG TABLET PO PRN (19:45)
[2016-11-27] MEDS ORDERED: ZOLPIDEM TARTRATE 10 MG TABLET PO PRN (19:45)
[2016-11-27 20:13] VITALS: BP 150/86
[2016-11-28 08:30] VITALS: BP 131/82
[2016-11-28 16:31] VITALS: BP 131/66
[2016-11-28] MEDS: ChlorproMAZINE HCL 100 MG TABLET PO SCH (17:27)
[2016-11-28] MEDS ORDERED: MAGNESIUM HYDROXIDE SUSPENSION 30 ML UDCUP PO PRN (22:30)
[2016-11-28] MEDS ORDERED: LOPERAMIDE HCL 2 MG CAPSULE PO PRN (22:30)
[2016-11-28] MEDS ORDERED: BENZOCAINE/MENTHOL LOZENGE [8 LOZENGES/PACKET] MM PRN (22:30)
[2016-11-28] MEDS ORDERED: CloNIDine HCL 0.1 MG TABLET PO PRN (22:30)
[2016-11-28] MEDS ORDERED: IBUPROFEN 600 MG TABLET PO PRN (22:30)
[2016-11-28] MEDS ORDERED: ONDANSETRON HCL 4 MG TABLET PO PRN (22:30)
[2016-11-28] MEDS ORDERED: BACITRACIN 28.4 GM OINTMENT TP PRN (22:30)
[2016-11-28] MEDS ORDERED: ALBUTEROL SULFATE HFA 90 MCG/PUFF 8 GM INHALER IH PRN (22:30)
[2016-11-28] MEDS ORDERED: MAG HYDROX/AL HYDROX/SIMETH ES 30 ML SUSPENSION UDCUP PO PRN (22:30)
[2016-11-28] MEDS ORDERED: ACETAMINOPHEN 325 MG TABLET PO PRN (22:30)
[2016-11-28] MEDS ORDERED: PETROLATUM,WHITE 71 GM JELLY TP PRN (22:30)
[2016-11-29 08:00] VITALS: BP 110/64
[2016-11-29] MEDS ORDERED: FLUoxetine HCL 20 MG CAPSULE PO SCH (09:00)
[2016-11-29] MEDS: ChlorproMAZINE HCL 100 MG TABLET PO SCH (11:08)
[2016-11-29] MEDS ORDERED: CHLO100T24 PO (12:57)
[2016-11-29] MEDS ORDERED: FLUO-191 PO (12:58)
[2017-02-08] MEDS ORDERED: DSS100 PO (13:20)
[2017-02-08] MEDS ORDERED: LORA2TAB2 PO (13:20)
[2017-02-08] MEDS ORDERED: [UNRECOGNIZED DRUG - CODE] PO (13:20)
[2017-02-08] MEDS ORDERED: CHLO100T23 PO (13:20)
[2017-02-08] MEDS ORDERED: SIMV-259 PO (13:20)
[2017-02-08] MEDS ORDERED: FLUO-191 PO (13:20)
[2017-02-08] MEDS ORDERED: OMEP20 PO (13:20)
[2017-02-08] MEDS ORDERED: HALO5 PO (13:20)
[2017-02-08] MEDS ORDERED: ZOLP10 PO (13:20)
[2017-02-08] MEDS ORDERED: ONDA4 PO (13:20)
[2017-02-08] MEDS ORDERED: CHLO50 PO (22:34)
[2017-02-08] MEDS ORDERED: OMEG-12 PO (22:40)
[2017-02-08] MEDS ORDERED: VITAD1000 PO (22:42)
== END 2016-11-29 15:40 | DRG 885 ==
LOC: EMS 16:20 → 3EI 19:00
PROVIDERS: ADMIT Psychiatry & Neurology Psychiatry; ATTEND Psychiatry & Neurology Psychiatry
DX: F25.9 Schizoaffective disorder, unspecified (principal); R45.851 Suicidal ideations; I10 Essential (primary) hypertension; F17.210 Nicotine dependence, cigarettes, uncomplicated; F32.9 Major depressive disorder, single episode, unspecified; F41.9 Anxiety disorder, unspecified; G62.9 Polyneuropathy, unspecified; F15.10 Other stimulant abuse, uncomplicated; J44.9 Chronic obstructive pulmonary disease, unspecified; F12.10 Cannabis abuse, uncomplicated; Z71.51 Drug abuse counseling and surveillance of drug abuser; Z59.0 Homelessness; Z71.6 Tobacco abuse counseling; Z79.899 Other long term (current) drug therapy
CPT/HCPCS: 87081; 96372; 99285; G0480; J1630; J2060

== ENCOUNTER 2016-12-07 01:30 | Inpatient (IN) | payer MEDICAID ==
[~2016-12-07] VITALS: Ht 177.8 cm; Wt 86.4 kg
[2016-12-07] MEDS ORDERED: ZOLPIDEM TARTRATE 10 MG TABLET PO PRN (02:45)
[2016-12-07] MEDS ORDERED: HALOPERIDOL 5 MG TABLET PO PRN (02:45)
[2016-12-07 02:54] VITALS: BP 104/61
[2016-12-07] MEDS ORDERED: BENZOCAINE/MENTHOL LOZENGE [8 LOZENGES/PACKET] MM PRN (09:00)
[2016-12-07] MEDS ORDERED: CloNIDine HCL 0.1 MG TABLET PO PRN (09:00)
[2016-12-07] MEDS ORDERED: MAG HYDROX/AL HYDROX/SIMETH ES 30 ML SUSPENSION UDCUP PO PRN (09:00)
[2016-12-07] MEDS ORDERED: MAGNESIUM HYDROXIDE SUSPENSION 30 ML UDCUP PO PRN (09:00)
[2016-12-07] MEDS ORDERED: BACITRACIN 28.4 GM OINTMENT TP PRN (09:00)
[2016-12-07] MEDS ORDERED: ONDANSETRON HCL 4 MG TABLET PO PRN (09:00)
[2016-12-07] MEDS ORDERED: PETROLATUM,WHITE 71 GM JELLY TP PRN (09:00)
[2016-12-07] MEDS ORDERED: LOPERAMIDE HCL 2 MG CAPSULE PO PRN (09:00)
[2016-12-07] MEDS ORDERED: ALBUTEROL SULFATE HFA 90 MCG/PUFF 8 GM INHALER IH PRN (09:00)
[2016-12-07] MEDS ORDERED: IBUPROFEN 600 MG TABLET PO PRN (09:00)
[2016-12-07] MEDS ORDERED: ACETAMINOPHEN 325 MG TABLET PO PRN (09:00)
[2016-12-07 09:50] VITALS: BP 112/71
[2016-12-07] MEDS: LORazepam 2 MG TABLET PO PRN (12:15)
[2016-12-07] MEDS: PREGABALIN 50 MG CAPSULE PO SCH ×2 (12:15→17:30)
[2016-12-07 16:30] VITALS: BP 110/63
[2016-12-08 08:00] VITALS: BP 131/84
[2016-12-08] MEDS: PREGABALIN 50 MG CAPSULE PO SCH ×2 (09:09→16:43)
[2016-12-08] MEDS: FLUoxetine HCL 20 MG CAPSULE PO SCH (09:09)
[2016-12-08] MEDS: LORazepam 2 MG TABLET PO PRN ×2 (09:10→16:47)
[2016-12-08] MEDS: ChlorproMAZINE HCL 100 MG TABLET PO SCH ×2 (09:10→16:44)
[2016-12-08 16:43] VITALS: BP 114/76
[2016-12-09 08:00] VITALS: BP 121/74
[2016-12-09] MEDS: ChlorproMAZINE HCL 100 MG TABLET PO SCH ×2 (09:25→16:21)
[2016-12-09] MEDS: PREGABALIN 50 MG CAPSULE PO SCH ×2 (09:25→16:21)
[2016-12-09] MEDS: FLUoxetine HCL 20 MG CAPSULE PO SCH (09:25)
[2016-12-09] MEDS: LORazepam 2 MG TABLET PO PRN ×2 (09:26→19:51)
[2016-12-09 18:32] VITALS: BP 100/55
[2016-12-10 08:04] VITALS: BP 131/84
[2016-12-10] MEDS: ChlorproMAZINE HCL 100 MG TABLET PO SCH ×2 (09:59→18:07)
[2016-12-10] MEDS: PREGABALIN 50 MG CAPSULE PO SCH ×2 (09:59→18:07)
[2016-12-10] MEDS: FLUoxetine HCL 20 MG CAPSULE PO SCH (09:59)
[2016-12-10] MEDS: LORazepam 2 MG TABLET PO PRN (11:55)
[2016-12-10 18:13] VITALS: BP 124/83
[2016-12-11 08:00] VITALS: BP 117/70
[2016-12-11] MEDS: PREGABALIN 50 MG CAPSULE PO SCH ×2 (08:52→16:25)
[2016-12-11] MEDS: FLUoxetine HCL 20 MG CAPSULE PO SCH (08:52)
[2016-12-11] MEDS: ChlorproMAZINE HCL 100 MG TABLET PO SCH ×2 (08:52→16:25)
[2016-12-11] MEDS: LORazepam 2 MG TABLET PO PRN ×2 (09:14→16:25)
[2016-12-11 16:45] VITALS: BP 126/74
[2016-12-12 08:25] VITALS: BP 111/78
[2016-12-12] MEDS: PREGABALIN 50 MG CAPSULE PO SCH (08:38)
[2016-12-12] MEDS: FLUoxetine HCL 20 MG CAPSULE PO SCH (08:39)
[2016-12-12] MEDS: ChlorproMAZINE HCL 100 MG TABLET PO SCH (08:39)
[2016-12-12] MEDS: LORazepam 2 MG TABLET PO PRN (10:29)
[2016-12-12] MEDS ORDERED: PREG50 PO (11:44)
== END 2016-12-12 12:40 | disposition home or self-care (01) | DRG 750 ==
LOC: 3EI 01:30
PROVIDERS: ADMIT Psychiatry & Neurology Psychiatry; ATTEND Psychiatry & Neurology Psychiatry
DX: F25.9 Schizoaffective disorder, unspecified (principal); R45.851 Suicidal ideations; G62.9 Polyneuropathy, unspecified; I10 Essential (primary) hypertension; J44.9 Chronic obstructive pulmonary disease, unspecified; F32.9 Major depressive disorder, single episode, unspecified; K59.00 Constipation, unspecified; F15.10 Other stimulant abuse, uncomplicated; Z71.51 Drug abuse counseling and surveillance of drug abuser; F17.210 Nicotine dependence, cigarettes, uncomplicated; Z59.0 Homelessness; Z71.6 Tobacco abuse counseling
CPT/HCPCS: 87081

== ENCOUNTER 2016-12-26 15:17 | Inpatient (IN) | payer MEDICAID, OTHER ==
[~2016-12-26] VITALS: Ht 180.3 cm; Wt 86.8 kg
[~2016-12-26 15:17] MED LIST changes: +PREG50 PO
[2016-12-26 17:06] LABS: BASOPHILS % (AUTO) 0.4 % (0.0-2.0); EOSINOPHILS % (AUTO) 1.1 % (1.0-6.0); HEMATOCRIT 42.1 % (41-53); HEMOGLOBIN 13.6 g/dL (13.5-17.5); LYMPHOCYTES # (AUTO) 2.6 K/uL (1.0-4.8); LYMPHOCYTES % (AUTO) 23.9 % (22.0-44.0); MEAN CORPUSCULAR HEMOGLOBIN 28.7 pg (26.0-34.0); MEAN CORPUSCULAR HGB CONC 32.4 G/dL (31.0-37.0); MEAN CORPUSCULAR VOLUME 89 fL (80-100); MONOCYTES # (AUTO) 0.8 K/uL (0.1-1.0); MONOCYTES % (AUTO) 7.6 % (2.0-9.0); NEUTROPHILS # (AUTO) 7.2 K/uL (1.8-7.7); PLATELET COUNT (AUTO) 354 K/uL (150-450); RED BLOOD CELL COUNT(AUTO) 4.75 MIL/uL (4.50-5.90); RED CELL DISTRIBUTION WIDTH 14.5 % (11.5-14.5); WHITE BLOOD COUNT (AUTO) 10.8 K/uL (4.5-11.0)
[2016-12-26 17:26] LABS: ANION GAP 11 mmol/L (8-16); CARBON DIOXIDE 28 mmol/L (22-29); CHLORIDE 101 mmol/L (98-107); CREATININE 1.05 mg/dL (0.60-1.30); GLOMERULAR FILTR. RATE CALC > 60 mL/min (>60); POTASSIUM 3.6 mmol/L (3.5-5.1); SODIUM SERUM 140 mmol/L (136-145); UREA NITROGEN, BLOOD 14 mg/dL (7-18)
[2016-12-26 17:36] LABS: ALANINE AMINOTRANSFERASE 31 U/L (12-78); ALBUMIN 3.9 g/dL (3.4-5.0); ASPARTATE AMINOTRANSFERASE 22 U/L (15-37); BILIRUBIN,TOTAL 0.3 mg/dL (0.1-1.0); TOTAL PROTEIN, SERUM 7.9 g/dL (6.4-8.2)
[2016-12-26] MEDS ORDERED: ZOLPIDEM TARTRATE 10 MG TABLET PO PRN (18:30)
[2016-12-26 22:20] VITALS: BP 132/89
[2016-12-27] MEDS ORDERED: MAG HYDROX/AL HYDROX/SIMETH ES 30 ML SUSPENSION UDCUP PO PRN (07:45)
[2016-12-27] MEDS ORDERED: BENZOCAINE/MENTHOL LOZENGE [8 LOZENGES/PACKET] MM PRN (07:45)
[2016-12-27] MEDS ORDERED: MAGNESIUM HYDROXIDE SUSPENSION 30 ML UDCUP PO PRN (07:45)
[2016-12-27] MEDS ORDERED: IBUPROFEN 600 MG TABLET PO PRN (07:45)
[2016-12-27] MEDS ORDERED: PETROLATUM,WHITE 71 GM JELLY TP PRN (07:45)
[2016-12-27] MEDS ORDERED: ONDANSETRON HCL 4 MG TABLET PO PRN (07:45)
[2016-12-27] MEDS ORDERED: ALBUTEROL SULFATE HFA 90 MCG/PUFF 8 GM INHALER IH PRN (07:45)
[2016-12-27] MEDS ORDERED: BACITRACIN 28.4 GM OINTMENT TP PRN (07:45)
[2016-12-27] MEDS ORDERED: CloNIDine HCL 0.1 MG TABLET PO PRN (07:45)
[2016-12-27] MEDS ORDERED: LOPERAMIDE HCL 2 MG CAPSULE PO PRN (07:45)
[2016-12-27] MEDS ORDERED: ACETAMINOPHEN 325 MG TABLET PO PRN (07:45)
[2016-12-27 08:05] VITALS: BP 145/89
[2016-12-27 16:30] VITALS: BP 126/74
[2016-12-27] MEDS: ChlorproMAZINE HCL 100 MG TABLET PO SCH (18:45)
[2016-12-28] MEDS: ChlorproMAZINE HCL 100 MG TABLET PO SCH ×2 (07:52→18:00)
[2016-12-28] MEDS: FLUoxetine HCL 20 MG CAPSULE PO SCH (07:52)
[2016-12-28 08:01] VITALS: BP 151/94
[2016-12-28 16:00] VITALS: BP 129/89
[2016-12-29 08:01] VITALS: BP 123/77
[2016-12-29] MEDS: FLUoxetine HCL 20 MG CAPSULE PO SCH (09:37)
[2016-12-29] MEDS: ChlorproMAZINE HCL 100 MG TABLET PO SCH ×2 (09:37→16:00)
[2016-12-29] MEDS: LORazepam 2 MG TABLET PO PRN (15:47)
[2016-12-29 16:15] VITALS: BP 142/85
[2016-12-30 08:09] VITALS: BP 126/78
[2016-12-30] MEDS: FLUoxetine HCL 20 MG CAPSULE PO SCH (09:23)
[2016-12-30] MEDS: ChlorproMAZINE HCL 100 MG TABLET PO SCH ×2 (09:23→17:38)
[2016-12-30] MEDS: LORazepam 2 MG TABLET PO PRN ×2 (10:33→17:39)
[2016-12-30 16:30] VITALS: BP 120/78
[2016-12-30] MEDS: HALOPERIDOL 5 MG TABLET PO PRN (17:38)
[2016-12-31 08:18] VITALS: BP 106/69
[2016-12-31] MEDS: ChlorproMAZINE HCL 100 MG TABLET PO SCH ×2 (08:43→17:58)
[2016-12-31] MEDS: FLUoxetine HCL 20 MG CAPSULE PO SCH (08:43)
[2016-12-31] MEDS: LORazepam 2 MG TABLET PO PRN (08:47)
[2016-12-31 18:52] VITALS: BP 131/84
[2017-01-01] MEDS: FLUoxetine HCL 20 MG CAPSULE PO SCH (08:47)
[2017-01-01] MEDS: ChlorproMAZINE HCL 100 MG TABLET PO SCH ×2 (08:47→17:02)
[2017-01-01] MEDS: LORazepam 2 MG TABLET PO PRN ×2 (08:50→15:01)
[2017-01-01 09:23] VITALS: BP 131/69
[2017-01-01 19:14] VITALS: BP 129/70
[2017-01-02] MEDS: LORazepam 2 MG TABLET PO PRN ×3 (05:11→15:57)
[2017-01-02] MEDS: ChlorproMAZINE HCL 100 MG TABLET PO SCH ×2 (08:49→16:24)
[2017-01-02] MEDS: FLUoxetine HCL 20 MG CAPSULE PO SCH (08:49)
[2017-01-02 09:53] VITALS: BP 116/80
[2017-01-02 16:00] VITALS: BP 122/76
[2017-01-02 17:30] VITALS: BP 126/81
[2017-01-02 20:11] VITALS: BP 126/81
[2017-01-03 08:00] VITALS: BP_SYST 81
[2017-01-03] MEDS: ChlorproMAZINE HCL 100 MG TABLET PO SCH ×2 (09:33→18:23)
[2017-01-03] MEDS: FLUoxetine HCL 20 MG CAPSULE PO SCH (09:33)
[2017-01-03] MEDS: HALOPERIDOL 5 MG TABLET PO PRN ×2 (09:35→14:12)
[2017-01-03] MEDS: LORazepam 2 MG TABLET PO PRN ×3 (09:35→18:23)
[2017-01-03 16:00] VITALS: BP 128/78
[2017-01-04 09:12] VITALS: BP 118/69
[2017-01-04] MEDS: LORazepam 2 MG TABLET PO PRN ×2 (09:34→14:30)
[2017-01-04] MEDS: FLUoxetine HCL 20 MG CAPSULE PO SCH (09:34)
[2017-01-04] MEDS: HALOPERIDOL 5 MG TABLET PO PRN ×2 (09:34→14:29)
[2017-01-04] MEDS: ChlorproMAZINE HCL 100 MG TABLET PO SCH ×2 (09:34→16:27)
[2017-01-04 16:33] VITALS: BP 107/66
[2017-01-05 06:49] VITALS: BP 124/75
[2017-01-05 07:24] LABS: BASOPHILS # (AUTO) 0.04 K/uL (0.00-0.20); BASOPHILS % (AUTO) 0.6 % (0.0-2.0); EOSINOPHILS # (AUTO) 0.07 K/uL (0.00-0.70); EOSINOPHILS % (AUTO) 0.98 % (1.0-6.0); HEMATOCRIT 38.5 % (41-53); HEMOGLOBIN 12.7 g/dL (13.5-17.5); LYMPHOCYTES # (AUTO) 2.3 K/uL (1.0-4.8); LYMPHOCYTES % (AUTO) 31.7 % (22.0-44.0); MEAN CORPUSCULAR HEMOGLOBIN 29.1 pg (26.0-34.0); MEAN CORPUSCULAR HGB CONC 33.1 G/dL (31.0-37.0); MEAN CORPUSCULAR VOLUME 88 fL (80-100); MONOCYTES # (AUTO) 0.5 K/uL (0.1-1.0); MONOCYTES % (AUTO) 7.1 % (2.0-9.0); NEUTROPHILS # (AUTO) 4.2 K/uL (1.8-7.7); NEUTROPHILS % (AUTO) 59.6 % (40.0-70.0); PLATELET COUNT (AUTO) 315 K/uL (150-450); RED BLOOD CELL COUNT(AUTO) 4.37 MIL/uL (4.50-5.90); WHITE BLOOD COUNT (AUTO) 7.1 K/uL (4.5-11.0)
[2017-01-05 07:41] LABS: ALANINE AMINOTRANSFERASE 27 U/L (12-78); ALBUMIN 3.3 g/dL (3.4-5.0); ANION GAP 7 mmol/L (8-16); ASPARTATE AMINOTRANSFERASE 9 U/L (15-37); BILIRUBIN,TOTAL 0.2 mg/dL (0.1-1.0); CALCIUM, TOTAL 8.7 mg/dL (8.8-10.5); CARBON DIOXIDE 28 mmol/L (22-29); CHLORIDE 104 mmol/L (98-107); GLOMERULAR FILTR. RATE CALC > 60 mL/min (>60); PHOSPHORUS 3.9 mg/dL (2.5-4.9); POTASSIUM 4.3 mmol/L (3.5-5.1); SODIUM SERUM 139 mmol/L (136-145); TOTAL PROTEIN, SERUM 6.2 g/dL (6.4-8.2); UREA NITROGEN, BLOOD 19 mg/dL (7-18)
[2017-01-05 09:59] VITALS: BP 108/62
[2017-01-05] MEDS: FLUoxetine HCL 20 MG CAPSULE PO SCH (10:10)
[2017-01-05] MEDS: LORazepam 2 MG TABLET PO PRN (10:10)
[2017-01-05] MEDS: ChlorproMAZINE HCL 100 MG TABLET PO SCH ×2 (10:10→16:15)
[2017-01-05] MEDS: HALOPERIDOL 5 MG TABLET PO PRN (10:10)
[2017-01-05 16:13] VITALS: BP 105/61
[2017-01-06] MEDS ORDERED: FERR-89 PO (02:38)
[2017-01-06 06:30] VITALS: BP 107/69
[2017-01-06] MEDS ORDERED: FERROUS SULFATE 325 MG EC TABLET PO SCH (07:30)
[2017-01-06 08:30] VITALS: BP 107/55
[2017-01-06] MEDS: FLUoxetine HCL 20 MG CAPSULE PO SCH (09:29)
[2017-01-06] MEDS: HALOPERIDOL 5 MG TABLET PO PRN (09:29)
[2017-01-06] MEDS: LORazepam 2 MG TABLET PO PRN (09:29)
[2017-01-06] MEDS: ChlorproMAZINE HCL 100 MG TABLET PO SCH (09:29)
[2017-01-06] MEDS ORDERED: HALO5 PO (16:38)
[2017-01-06] MEDS ORDERED: LORA2TAB2 PO (16:38)
== END 2017-01-06 15:20 | disposition home or self-care (01) | DRG 750 ==
LOC: EMS 15:19 → 3EC 20:03 → 3EI 01-04 17:55
PROVIDERS: ADMIT Psychiatry & Neurology Psychiatry; ATTEND Psychiatry & Neurology Psychiatry
DX: F25.9 Schizoaffective disorder, unspecified (principal); R45.851 Suicidal ideations; G62.9 Polyneuropathy, unspecified; I10 Essential (primary) hypertension; J44.9 Chronic obstructive pulmonary disease, unspecified; Z72.0 Tobacco use; F15.10 Other stimulant abuse, uncomplicated; K21.9 Gastro-esophageal reflux disease without esophagitis; K59.00 Constipation, unspecified; G47.00 Insomnia, unspecified; E78.00 Pure hypercholesterolemia, unspecified; R42 Dizziness and giddiness; D64.9 Anemia, unspecified
CPT/HCPCS: 70450; 82306; 83735; 84100; 87081; 99285; G0480

== ENCOUNTER 2017-01-06 15:58 | Inpatient (IN) | payer MEDICAID, OTHER ==
[~2017-01-06] VITALS: Ht 170.2 cm; Wt 84.5 kg
[~2017-01-06 15:58] MED LIST changes: +FERR-89 PO
[2017-01-06] MEDS ORDERED: LORA2TAB2 PO (16:38)
[2017-01-06] MEDS ORDERED: HALO5 PO (16:38)
[2017-01-06 16:59] LABS: BASOPHILS # (AUTO) 0.02 K/uL (0.00-0.20); BASOPHILS % (AUTO) 0.3 % (0.0-2.0); EOSINOPHILS # (AUTO) 0.04 K/uL (0.00-0.70); EOSINOPHILS % (AUTO) 0.53 % (1.0-6.0); HEMATOCRIT 40.6 % (41-53); HEMOGLOBIN 13.3 g/dL (13.5-17.5); LYMPHOCYTES % (AUTO) 23.8 % (22.0-44.0); MEAN CORPUSCULAR HEMOGLOBIN 29.1 pg (26.0-34.0); MEAN CORPUSCULAR HGB CONC 32.7 G/dL (31.0-37.0); MEAN CORPUSCULAR VOLUME 89 fL (80-100); MONOCYTES # (AUTO) 0.6 K/uL (0.1-1.0); MONOCYTES % (AUTO) 6.6 % (2.0-9.0); NEUTROPHILS # (AUTO) 5.7 K/uL (1.8-7.7); NEUTROPHILS % (AUTO) 68.8 % (40.0-70.0); PLATELET COUNT (AUTO) 301 K/uL (150-450); RED BLOOD CELL COUNT(AUTO) 4.56 MIL/uL (4.50-5.90); RED CELL DISTRIBUTION WIDTH 14.2 % (11.5-14.5); WHITE BLOOD COUNT (AUTO) 8.2 K/uL (4.5-11.0)
[2017-01-06 17:11] LABS: ANION GAP 7 mmol/L (8-16); CALCIUM, TOTAL 9.2 mg/dL (8.8-10.5); CARBON DIOXIDE 30 mmol/L (22-29); CHLORIDE 102 mmol/L (98-107); CREATININE 1.25 mg/dL (0.60-1.30); GLOMERULAR FILTR. RATE CALC > 60 mL/min (>60); SODIUM SERUM 139 mmol/L (136-145); UREA NITROGEN, BLOOD 23 mg/dL (7-18)
[2017-01-06 17:17] LABS: ALANINE AMINOTRANSFERASE 30 U/L (12-78); ALBUMIN 3.8 g/dL (3.4-5.0); ASPARTATE AMINOTRANSFERASE 13 U/L (15-37); BILIRUBIN,TOTAL 0.2 mg/dL (0.1-1.0); TOTAL PROTEIN, SERUM 7.1 g/dL (6.4-8.2)
[2017-01-06] MEDS ORDERED: HALOPERIDOL 5 MG TABLET PO PRN (20:45)
[2017-01-06] MEDS ORDERED: ZOLPIDEM TARTRATE 10 MG TABLET PO PRN (20:45)
[2017-01-06] MEDS ORDERED: LORazepam 2 MG TABLET PO PRN (20:45)
[2017-01-07] MEDS: LORazepam 2 MG TABLET PO PRN ×3 (11:58→20:39)
[2017-01-07] MEDS: HALOPERIDOL 5 MG TABLET PO PRN (11:58)
[2017-01-07 12:06] VITALS: BP 138/86
[2017-01-07 19:27] VITALS: BP 130/75
[2017-01-08 04:05] VITALS: BP 108/60
[2017-01-08] MEDS: LORazepam 2 MG TABLET PO PRN ×4 (04:32→16:44)
[2017-01-08 06:20] LABS: CHOL/HDL RATIO 5.2 (4.2-7.3)
[2017-01-08] MEDS: HALOPERIDOL 5 MG TABLET PO PRN ×2 (08:28→12:39)
[2017-01-08 08:30] VITALS: BP 128/75
[2017-01-08 13:38] VITALS: BP 128/75
[2017-01-08] MEDS: FLUoxetine HCL 20 MG CAPSULE PO SCH (14:19)
[2017-01-08] MEDS ORDERED: ALBUTEROL SULFATE HFA 90 MCG/PUFF 8 GM INHALER IH PRN (14:30)
[2017-01-08] MEDS ORDERED: MAG HYDROX/AL HYDROX/SIMETH ES 30 ML SUSPENSION UDCUP PO PRN (14:30)
[2017-01-08] MEDS ORDERED: IBUPROFEN 600 MG TABLET PO PRN (14:30)
[2017-01-08] MEDS ORDERED: ACETAMINOPHEN 325 MG TABLET PO PRN (14:30)
[2017-01-08] MEDS ORDERED: LOPERAMIDE HCL 2 MG CAPSULE PO PRN (14:30)
[2017-01-08] MEDS ORDERED: MAGNESIUM HYDROXIDE SUSPENSION 30 ML UDCUP PO PRN (14:30)
[2017-01-08] MEDS ORDERED: PETROLATUM,WHITE 71 GM JELLY TP PRN (14:30)
[2017-01-08] MEDS ORDERED: BENZOCAINE/MENTHOL LOZENGE MM PRN (14:30)
[2017-01-08] MEDS ORDERED: BACITRACIN 28.4 GM OINTMENT TP PRN (14:30)
[2017-01-08] MEDS ORDERED: ONDANSETRON HCL 4 MG TABLET PO PRN (14:30)
[2017-01-08] MEDS ORDERED: CloNIDine HCL 0.1 MG TABLET PO PRN (14:30)
[2017-01-08 16:18] VITALS: BP 132/79
[2017-01-08] MEDS: ChlorproMAZINE HCL 100 MG TABLET PO SCH (16:24)
[2017-01-08] MEDS: SIMVASTATIN 10 MG TABLET PO SCH (20:43)
[2017-01-09] MEDS: ZOLPIDEM TARTRATE 10 MG TABLET PO PRN (02:22)
[2017-01-09] MEDS: CHOLECALCIFEROL (VIT D3) 1,000 UNITS TABLET PO SCH (08:19)
[2017-01-09] MEDS: ChlorproMAZINE HCL 100 MG TABLET PO SCH ×2 (08:19→16:40)
[2017-01-09] MEDS: FLUoxetine HCL 20 MG CAPSULE PO SCH (08:19)
[2017-01-09] MEDS: FISH OIL/OMEGA-3 FATTY ACIDS 500 MG CAPSULE PO SCH (08:20)
[2017-01-09] MEDS: LORazepam 2 MG TABLET PO PRN ×3 (08:24→16:40)
[2017-01-09 08:41] VITALS: BP 122/75
[2017-01-09 20:15] VITALS: BP 98/60
[2017-01-09] MEDS: SIMVASTATIN 10 MG TABLET PO SCH (20:43)
[2017-01-10] MEDS: ZOLPIDEM TARTRATE 10 MG TABLET PO PRN (01:59)
[2017-01-10] MEDS: FERROUS SULFATE 325 MG EC TABLET PO SCH ×2 (06:59→16:53)
[2017-01-10] MEDS: ChlorproMAZINE HCL 100 MG TABLET PO SCH ×2 (08:39→16:53)
[2017-01-10] MEDS: CHOLECALCIFEROL (VIT D3) 1,000 UNITS TABLET PO SCH (08:40)
[2017-01-10] MEDS: FISH OIL/OMEGA-3 FATTY ACIDS 500 MG CAPSULE PO SCH (08:40)
[2017-01-10] MEDS: FLUoxetine HCL 20 MG CAPSULE PO SCH (08:40)
[2017-01-10 08:43] VITALS: BP 106/57
[2017-01-10] MEDS: LORazepam 2 MG TABLET PO PRN ×3 (08:45→18:28)
[2017-01-10 16:29] VITALS: BP 102/58
[2017-01-10] MEDS: SIMVASTATIN 10 MG TABLET PO SCH (20:38)
[2017-01-11] MEDS: ZOLPIDEM TARTRATE 10 MG TABLET PO PRN (00:08)
[2017-01-11] MEDS: FERROUS SULFATE 325 MG EC TABLET PO SCH (07:01)
[2017-01-11] MEDS: FISH OIL/OMEGA-3 FATTY ACIDS 500 MG CAPSULE PO SCH (08:47)
[2017-01-11] MEDS: ChlorproMAZINE HCL 100 MG TABLET PO SCH (08:48)
[2017-01-11] MEDS: LORazepam 2 MG TABLET PO PRN (08:48)
[2017-01-11] MEDS: FLUoxetine HCL 20 MG CAPSULE PO SCH (08:48)
[2017-01-11] MEDS: CHOLECALCIFEROL (VIT D3) 1,000 UNITS TABLET PO SCH (08:48)
[2017-01-11 10:40] VITALS: BP 133/84
[2017-01-11] MEDS ORDERED: FERR-89 PO (11:29)
[2017-01-11] MEDS ORDERED: VITAD1000 PO (11:29)
[2017-01-11] MEDS ORDERED: SIMV-259 PO (11:30)
[2017-01-11] MEDS ORDERED: OMEG300C3 PO (11:30)
[2017-02-08] MEDS ORDERED: ONDA4 PO (13:20)
[2017-02-08] MEDS ORDERED: ZOLP10 PO (13:20)
[2017-02-08] MEDS ORDERED: DSS100 PO (13:20)
[2017-02-08] MEDS ORDERED: HALO5 PO (13:20)
[2017-02-08] MEDS ORDERED: FLUO-191 PO (13:20)
[2017-02-08] MEDS ORDERED: OMEP20 PO (13:20)
[2017-02-08] MEDS ORDERED: LORA2TAB2 PO (13:20)
[2017-02-08] MEDS ORDERED: [UNRECOGNIZED DRUG - CODE] PO (13:20)
[2017-02-08] MEDS ORDERED: CHLO100T23 PO (13:20)
[2017-02-08] MEDS ORDERED: SIMV-259 PO (13:20)
[2017-02-08] MEDS ORDERED: CHLO50 PO (22:34)
[2017-02-08] MEDS ORDERED: OMEG-12 PO (22:40)
[2017-02-08] MEDS ORDERED: VITAD1000 PO (22:42)
== END 2017-01-11 12:30 | disposition home or self-care (01) | DRG 753 ==
LOC: EEVIPCON 15:58 → EMS 16:01 → 3EI 01-07 10:34
PROVIDERS: ADMIT Psychiatry & Neurology Psychiatry; ATTEND Psychiatry & Neurology Psychiatry
DX: F31.4 Bipolar disorder, current episode depressed, severe, without psychotic features (principal); E55.9 Vitamin D deficiency, unspecified; R45.851 Suicidal ideations; J44.9 Chronic obstructive pulmonary disease, unspecified; K59.00 Constipation, unspecified; K21.9 Gastro-esophageal reflux disease without esophagitis; Z72.0 Tobacco use; F15.10 Other stimulant abuse, uncomplicated; E78.5 Hyperlipidemia, unspecified; G47.00 Insomnia, unspecified; D64.9 Anemia, unspecified; E86.0 Dehydration; Z76.5 Malingerer [conscious simulation]
CPT/HCPCS: 87081; 99285; 99406; G0480

== ENCOUNTER 2017-01-23 20:09 | Emergency (ER) | payer MEDICAID, OTHER ==
[~2017-01-23] VITALS: Ht 177.8 cm; Wt 84.1 kg
[~2017-01-23 20:09] MED LIST changes: +OMEG300C3 PO; -PREG50 PO; +SIMV-259 PO; +VITAD1000 PO
[2017-01-23 20:57] LABS: BASOPHILS % (AUTO) 0.7 % (0.0-2.0); EOSINOPHILS % (AUTO) 1.4 % (1.0-6.0); HEMATOCRIT 39.4 % (41-53); HEMOGLOBIN 13.2 g/dL (13.5-17.5); LYMPHOCYTES # (AUTO) 2.5 K/uL (1.0-4.8); LYMPHOCYTES % (AUTO) 29.1 % (22.0-44.0); MEAN CORPUSCULAR HEMOGLOBIN 29.7 pg (26.0-34.0); MEAN CORPUSCULAR HGB CONC 33.4 G/dL (31.0-37.0); MEAN CORPUSCULAR VOLUME 89 fL (80-100); MONOCYTES # (AUTO) 0.6 K/uL (0.1-1.0); NEUTROPHILS # (AUTO) 5.4 K/uL (1.8-7.7); NEUTROPHILS % (AUTO) 61.8 % (40.0-70.0); PLATELET COUNT (AUTO) 346 K/uL (150-450); RED BLOOD CELL COUNT(AUTO) 4.42 MIL/uL (4.50-5.90); RED CELL DISTRIBUTION WIDTH 14.6 % (11.5-14.5); WHITE BLOOD COUNT (AUTO) 8.7 K/uL (4.5-11.0)
[2017-01-23 21:08] LABS: ANION GAP 8 mmol/L (8-16); CALCIUM, TOTAL 9.2 mg/dL (8.8-10.5); CARBON DIOXIDE 27 mmol/L (22-29); CHLORIDE 104 mmol/L (98-107); CREATININE 1.07 mg/dL (0.60-1.30); GLOMERULAR FILTR. RATE CALC > 60 mL/min (>60); POTASSIUM 3.4 mmol/L (3.5-5.1); SODIUM SERUM 139 mmol/L (136-145); UREA NITROGEN, BLOOD 16 mg/dL (7-18)
[2017-01-23 21:15] LABS: ALANINE AMINOTRANSFERASE 22 U/L (12-78); ALBUMIN 3.7 g/dL (3.4-5.0); ASPARTATE AMINOTRANSFERASE 15 U/L (15-37); BILIRUBIN,TOTAL 0.3 mg/dL (0.1-1.0)
[2017-01-23 22:24] VITALS: BP 132/97
[2017-01-23] MEDS ORDERED: ChlorproMAZINE HCL 25 MG TABLET PO ONE (23:00)
[2017-01-23] MEDS ORDERED: ChlorproMAZINE HCL 100 MG TABLET PO ONE (23:15)
[2017-02-08] MEDS ORDERED: HALO5 PO (13:20)
[2017-02-08] MEDS ORDERED: FLUO-191 PO (13:20)
[2017-02-08] MEDS ORDERED: CHLO100T23 PO (13:20)
[2017-02-08] MEDS ORDERED: [UNRECOGNIZED DRUG - CODE] PO (13:20)
[2017-02-08] MEDS ORDERED: OMEP20 PO (13:20)
[2017-02-08] MEDS ORDERED: LORA2TAB2 PO (13:20)
[2017-02-08] MEDS ORDERED: DSS100 PO (13:20)
[2017-02-08] MEDS ORDERED: ONDA4 PO (13:20)
[2017-02-08] MEDS ORDERED: ZOLP10 PO (13:20)
[2017-02-08] MEDS ORDERED: SIMV-259 PO (13:20)
[2017-02-08] MEDS ORDERED: CHLO50 PO (22:34)
[2017-02-08] MEDS ORDERED: OMEG-12 PO (22:40)
[2017-02-08] MEDS ORDERED: VITAD1000 PO (22:42)
== END 2017-01-23 22:28 | disposition home or self-care (01) ==
LOC: EMS 20:11
DX: R45.851 Suicidal ideations (principal); L73.9 Follicular disorder, unspecified; F20.9 Schizophrenia, unspecified; F32.9 Major depressive disorder, single episode, unspecified; F41.9 Anxiety disorder, unspecified; F17.210 Nicotine dependence, cigarettes, uncomplicated; I10 Essential (primary) hypertension; Z86.14 Personal history of Methicillin resistant Staphylococcus aureus infection
CPT/HCPCS: 36415; 80053; 85025; 99284; 99406; G0480

== ENCOUNTER 2017-02-21 14:32 | Inpatient (IN) | payer MEDICAID, OTHER ==
[~2017-02-21] VITALS: Ht 177.8 cm; Wt 87.1 kg
[~2017-02-21 14:32] MED LIST changes: -CHLO100T24 PO; +CHLO50 PO; +DSS100 PO; -FERR-89 PO; +OMEG-12 PO; -OMEG300C3 PO; +OMEP20 PO
[2017-02-21 15:23] LABS: BASOPHILS % (AUTO) 1.2 % (0.0-2.0); EOSINOPHILS % (AUTO) 0.9 % (1.0-6.0); HEMATOCRIT 42.1 % (41-53); HEMOGLOBIN 14.3 g/dL (13.5-17.5); LYMPHOCYTES # (AUTO) 2.1 K/uL (1.0-4.8); LYMPHOCYTES % (AUTO) 24.1 % (22.0-44.0); MEAN CORPUSCULAR HEMOGLOBIN 29.6 pg (26.0-34.0); MEAN CORPUSCULAR VOLUME 87 fL (80-100); MONOCYTES # (AUTO) 0.6 K/uL (0.1-1.0); MONOCYTES % (AUTO) 6.7 % (2.0-9.0); NEUTROPHILS # (AUTO) 5.7 K/uL (1.8-7.7); NEUTROPHILS % (AUTO) 67.1 % (40.0-70.0); PLATELET COUNT (AUTO) 375 K/uL (150-450); RED BLOOD CELL COUNT(AUTO) 4.83 MIL/uL (4.50-5.90); RED CELL DISTRIBUTION WIDTH 14.7 % (11.5-14.5); WHITE BLOOD COUNT (AUTO) 8.5 K/uL (4.5-11.0)
[2017-02-21 15:43] LABS: ALANINE AMINOTRANSFERASE 25 U/L (12-78); ALBUMIN 3.7 g/dL (3.4-5.0); ANION GAP 8 mmol/L (8-16); ASPARTATE AMINOTRANSFERASE 15 U/L (15-37); BILIRUBIN,TOTAL 0.2 mg/dL (0.1-1.0); CARBON DIOXIDE 27 mmol/L (22-29); CHLORIDE 105 mmol/L (98-107); POTASSIUM 4.1 mmol/L (3.5-5.1); SODIUM SERUM 140 mmol/L (136-145); TOTAL PROTEIN, SERUM 7.2 g/dL (6.4-8.2); UREA NITROGEN, BLOOD 22 mg/dL (7-18)
[2017-02-21 15:57] LABS: CREATININE 1.24 mg/dL (0.60-1.30); GLOMERULAR FILTR. RATE CALC > 60 mL/min (>60)
[2017-02-21] MEDS ORDERED: LORazepam 2 MG/ML VIAL IM ONE (18:00)
[2017-02-21] MEDS ORDERED: DiphenhydrAMINE HCL 50 MG/ML VIAL IM ONE (18:00)
[2017-02-21] MEDS ORDERED: HALOPERIDOL LACTATE 5 MG/ML VIAL IM ONE (18:00)
[2017-02-21] MEDS ORDERED: ZOLPIDEM TARTRATE 10 MG TABLET PO PRN (19:00)
[2017-02-21] MEDS ORDERED: HALOPERIDOL 5 MG TABLET PO PRN (19:00)
[2017-02-21 21:45] VITALS: BP 104/67
[2017-02-21] MEDS ORDERED: -PHARMACY VACCINE NOTE- MISC ONE ×2 (22:15)
[2017-02-22 00:40] VITALS: BP 112/61
[2017-02-22 08:25] VITALS: BP 112/62
[2017-02-22] MEDS ORDERED: CloNIDine HCL 0.1 MG TABLET PO PRN (08:45)
[2017-02-22] MEDS ORDERED: MAGNESIUM HYDROXIDE SUSPENSION 30 ML UDCUP PO PRN (08:45)
[2017-02-22] MEDS ORDERED: BACITRACIN 28.4 GM OINTMENT TP PRN (08:45)
[2017-02-22] MEDS ORDERED: ALBUTEROL SULFATE HFA 90 MCG/PUFF 8 GM INHALER IH PRN (08:45)
[2017-02-22] MEDS ORDERED: ACETAMINOPHEN 325 MG TABLET PO PRN (08:45)
[2017-02-22] MEDS ORDERED: LOPERAMIDE HCL 2 MG CAPSULE PO PRN (08:45)
[2017-02-22] MEDS ORDERED: PETROLATUM,WHITE 71 GM JELLY TP PRN (08:45)
[2017-02-22] MEDS ORDERED: MAG HYDROX/AL HYDROX/SIMETH ES 30 ML SUSPENSION UDCUP PO PRN (08:45)
[2017-02-22] MEDS ORDERED: BENZOCAINE/MENTHOL LOZENGE MM PRN (08:45)
[2017-02-22] MEDS ORDERED: ONDANSETRON HCL 4 MG TABLET PO PRN (08:45)
[2017-02-22] MEDS: CHOLECALCIFEROL (VIT D3) 1,000 UNITS TABLET PO SCH (09:48)
[2017-02-22] MEDS: NICOTINE 21 MG/24 HOUR PATCH TD SCH (09:48)
[2017-02-22 16:00] VITALS: BP 107/63
[2017-02-22] MEDS: SIMVASTATIN 10 MG TABLET PO SCH (21:13)
[2017-02-23] MEDS: FLUoxetine HCL 20 MG CAPSULE PO SCH (08:55)
[2017-02-23] MEDS: ChlorproMAZINE HCL 50 MG TABLET PO SCH ×2 (08:55→16:19)
[2017-02-23] MEDS: NICOTINE 21 MG/24 HOUR PATCH TD SCH (08:55)
[2017-02-23] MEDS: CHOLECALCIFEROL (VIT D3) 1,000 UNITS TABLET PO SCH (08:55)
[2017-02-23 08:59] VITALS: BP 128/72
[2017-02-23] MEDS: LORazepam 2 MG TABLET PO PRN ×2 (10:26→20:19)
[2017-02-23 16:00] VITALS: BP 122/76
[2017-02-23] MEDS: SIMVASTATIN 10 MG TABLET PO SCH (20:19)
[2017-02-24] MEDS ORDERED: SODIUM CHLORIDE 0.9% 1,000 ML IV ONE (06:05)
[2017-02-24 06:13] VITALS: BP 101/64
[2017-02-24 08:17] VITALS: BP 95/59
[2017-02-24] MEDS: NICOTINE 21 MG/24 HOUR PATCH TD SCH (09:29)
[2017-02-24] MEDS: FLUoxetine HCL 20 MG CAPSULE PO SCH (09:30)
[2017-02-24] MEDS: LORazepam 2 MG TABLET PO PRN ×2 (09:30→16:20)
[2017-02-24] MEDS: CHOLECALCIFEROL (VIT D3) 1,000 UNITS TABLET PO SCH (09:30)
[2017-02-24] MEDS: ChlorproMAZINE HCL 50 MG TABLET PO SCH ×2 (09:30→16:20)
[2017-02-24 16:18] VITALS: BP 110/63
[2017-02-24] MEDS: SIMVASTATIN 10 MG TABLET PO SCH (20:29)
[2017-02-25 00:21] VITALS: BP 115/69
[2017-02-25] MEDS: FLUoxetine HCL 20 MG CAPSULE PO SCH (09:10)
[2017-02-25] MEDS: ChlorproMAZINE HCL 50 MG TABLET PO SCH ×2 (09:10→17:28)
[2017-02-25] MEDS: CHOLECALCIFEROL (VIT D3) 1,000 UNITS TABLET PO SCH (09:10)
[2017-02-25] MEDS: LORazepam 2 MG TABLET PO PRN ×3 (09:11→17:32)
[2017-02-25] MEDS: NICOTINE 21 MG/24 HOUR PATCH TD SCH (09:11)
[2017-02-25 09:33] VITALS: BP 118/69
[2017-02-25] MEDS: IBUPROFEN 600 MG TABLET PO PRN (13:45)
[2017-02-25 16:18] VITALS: BP 120/65
[2017-02-25] MEDS ORDERED: BENZOCAINE 10% 7 GM GEL TP PRN (18:45)
[2017-02-25] MEDS: SIMVASTATIN 10 MG TABLET PO SCH (20:21)
[2017-02-26 05:42] VITALS: BP 110/75
[2017-02-26 08:15] VITALS: BP 129/64
[2017-02-26] MEDS: FLUoxetine HCL 20 MG CAPSULE PO SCH (09:49)
[2017-02-26] MEDS: NICOTINE 21 MG/24 HOUR PATCH TD SCH (09:49)
[2017-02-26] MEDS: CHOLECALCIFEROL (VIT D3) 1,000 UNITS TABLET PO SCH (09:49)
[2017-02-26] MEDS: ChlorproMAZINE HCL 50 MG TABLET PO SCH ×2 (09:49→17:19)
[2017-02-26] MEDS: LORazepam 2 MG TABLET PO PRN ×2 (10:19→17:19)
[2017-02-26 18:26] VITALS: BP 100/64
[2017-02-26] MEDS: SIMVASTATIN 10 MG TABLET PO SCH (21:41)
[2017-02-27] VITALS (16 sets, daily range): BP systolic 100–122; BP diastolic 61–77
[2017-02-27] MEDS: FLUoxetine HCL 20 MG CAPSULE PO SCH (09:43)
[2017-02-27] MEDS: CHOLECALCIFEROL (VIT D3) 1,000 UNITS TABLET PO SCH (09:43)
[2017-02-27] MEDS: ChlorproMAZINE HCL 50 MG TABLET PO SCH (09:43)
[2017-02-27] MEDS: NICOTINE 21 MG/24 HOUR PATCH TD SCH (09:43)
[2017-02-27] MEDS: LORazepam 2 MG TABLET PO PRN ×2 (09:51→14:53)
[2017-02-27] MEDS: SIMVASTATIN 10 MG TABLET PO SCH (20:02)
[2017-02-27] MEDS ORDERED: HALOPERIDOL 5 MG TABLET PO PRN (21:30)
[2017-02-27] MEDS: ZOLPIDEM TARTRATE 10 MG TABLET PO PRN (21:41)
[2017-02-28 00:02] VITALS: BP 105/58
[2017-02-28] MEDS: LORazepam 2 MG TABLET PO PRN ×4 (00:04→20:26)
[2017-02-28] MEDS: FLUoxetine HCL 20 MG CAPSULE PO SCH (08:12)
[2017-02-28] MEDS: CHOLECALCIFEROL (VIT D3) 1,000 UNITS TABLET PO SCH (08:12)
[2017-02-28] MEDS: NICOTINE 21 MG/24 HOUR PATCH TD SCH (08:13)
[2017-02-28 11:58] VITALS: BP 135/83
[2017-02-28] MEDS: IBUPROFEN 600 MG TABLET PO PRN ×2 (13:16→19:52)
[2017-02-28 14:10] VITALS: BP 120/76
[2017-02-28 17:00] VITALS: BP 107/69
[2017-02-28 19:52] VITALS: BP 110/77
[2017-02-28] MEDS: SIMVASTATIN 10 MG TABLET PO SCH (20:26)
[2017-02-28] MEDS: ZOLPIDEM TARTRATE 10 MG TABLET PO PRN (21:37)
[2017-03-01 00:17] VITALS: BP 110/70
[2017-03-01 06:18] VITALS: BP 137/84
[2017-03-01] MEDS: LORazepam 2 MG TABLET PO PRN ×4 (06:18→20:18)
[2017-03-01] MEDS: CHOLECALCIFEROL (VIT D3) 1,000 UNITS TABLET PO SCH (09:13)
[2017-03-01] MEDS: NICOTINE 21 MG/24 HOUR PATCH TD SCH (09:13)
[2017-03-01] MEDS: FLUoxetine HCL 20 MG CAPSULE PO SCH (09:13)
[2017-03-01 09:26] VITALS: BP 114/72
[2017-03-01 16:00] VITALS: BP 119/76
[2017-03-01] MEDS: SIMVASTATIN 10 MG TABLET PO SCH (20:18)
[2017-03-01] MEDS: ZOLPIDEM TARTRATE 10 MG TABLET PO PRN (21:31)
[2017-03-02 06:09] VITALS: BP 119/66
[2017-03-02] MEDS: LORazepam 2 MG TABLET PO PRN ×4 (06:12→19:10)
[2017-03-02 09:04] VITALS: BP 99/69
[2017-03-02] MEDS: FLUoxetine HCL 20 MG CAPSULE PO SCH (10:06)
[2017-03-02] MEDS: NICOTINE 21 MG/24 HOUR PATCH TD SCH (10:06)
[2017-03-02] MEDS: CHOLECALCIFEROL (VIT D3) 1,000 UNITS TABLET PO SCH (10:06)
[2017-03-02 10:45] VITALS: BP 105/61
[2017-03-02 14:58] VITALS: BP 111/71
[2017-03-02 16:17] VITALS: BP 118/62
[2017-03-02] MEDS: SIMVASTATIN 10 MG TABLET PO SCH (20:12)
[2017-03-02] MEDS: ZOLPIDEM TARTRATE 10 MG TABLET PO PRN (20:49)
[2017-03-03] MEDS: LORazepam 2 MG TABLET PO PRN ×4 (06:31→20:03)
[2017-03-03 06:32] VITALS: BP 115/70
[2017-03-03] MEDS: NICOTINE 21 MG/24 HOUR PATCH TD SCH (08:24)
[2017-03-03] MEDS: CHOLECALCIFEROL (VIT D3) 1,000 UNITS TABLET PO SCH (08:25)
[2017-03-03] MEDS: FLUoxetine HCL 20 MG CAPSULE PO SCH (08:25)
[2017-03-03 08:32] VITALS: BP 134/64
[2017-03-03 16:37] VITALS: BP 114/78
[2017-03-03] MEDS: SIMVASTATIN 10 MG TABLET PO SCH (20:03)
[2017-03-03] MEDS: ZOLPIDEM TARTRATE 10 MG TABLET PO PRN (21:20)
[2017-03-04 06:10] VITALS: BP 115/69
[2017-03-04] MEDS: LORazepam 2 MG TABLET PO PRN ×2 (06:53→11:58)
[2017-03-04 08:10] VITALS: BP 119/87
[2017-03-04] MEDS: CHOLECALCIFEROL (VIT D3) 1,000 UNITS TABLET PO SCH (09:31)
[2017-03-04] MEDS: NICOTINE 21 MG/24 HOUR PATCH TD SCH (09:31)
[2017-03-04] MEDS: FLUoxetine HCL 20 MG CAPSULE PO SCH (09:31)
[2017-03-04] MEDS ORDERED: SIMV-259 PO (11:40)
[2017-03-04] MEDS ORDERED: FLUO-191 PO (11:40)
[2017-03-04] MEDS ORDERED: CHOL100034 PO (11:41)
[2017-03-04] MEDS ORDERED: NICO1PAT25 TP (11:57)
== END 2017-03-04 13:05 | disposition home or self-care (01) | DRG 750 ==
LOC: EMS 14:33 → B2S 20:35
PROVIDERS: ADMIT Psychiatry & Neurology Psychiatry; ATTEND Psychiatry & Neurology Psychiatry
DX: F25.0 Schizoaffective disorder, bipolar type (principal); E55.9 Vitamin D deficiency, unspecified; R45.851 Suicidal ideations; I10 Essential (primary) hypertension; J44.9 Chronic obstructive pulmonary disease, unspecified; K21.9 Gastro-esophageal reflux disease without esophagitis; K59.00 Constipation, unspecified; G47.00 Insomnia, unspecified; E78.5 Hyperlipidemia, unspecified; F17.200 Nicotine dependence, unspecified, uncomplicated; F15.10 Other stimulant abuse, uncomplicated; F22 Delusional disorders; Z59.0 Homelessness; Z71.6 Tobacco abuse counseling; Z79.899 Other long term (current) drug therapy
CPT/HCPCS: 87081; 96372; 99285; G0480; J1200; J1630; J2060; J7030

== ENCOUNTER 2018-06-05 10:36 | Inpatient (IN) | payer MEDICAID, OTHER ==
[~2018-06-05] VITALS: Ht 180.3 cm; Wt 86.8 kg
[~2018-06-05 10:36] MED LIST changes: -CHLO50 PO; -DSS100 PO; -OMEG-12 PO; -OMEP20 PO; -SIMV-259 PO; -VITAD1000 PO
[2018-06-05 11:11] LABS: BASOPHILS % (AUTO) 0.6 % (0.0-2.0); EOSINOPHILS % (AUTO) 0.4 % (1.0-6.0); HEMATOCRIT 42.5 % (41-53); HEMOGLOBIN 14.6 g/dL (13.5-17.5); LYMPHOCYTES # (AUTO) 1.9 K/uL (1.0-4.8); LYMPHOCYTES % (AUTO) 19.8 % (22.0-44.0); MEAN CORPUSCULAR HEMOGLOBIN 30.8 pg (26.0-34.0); MEAN CORPUSCULAR HGB CONC 34.5 G/dL (31.0-37.0); MEAN CORPUSCULAR VOLUME 90 fL (80-100); MONOCYTES # (AUTO) 0.6 K/uL (0.1-1.0); MONOCYTES % (AUTO) 6.7 % (2.0-9.0); NEUTROPHILS # (AUTO) 6.9 K/uL (1.8-7.7); NEUTROPHILS % (AUTO) 72.5 % (40.0-70.0); PLATELET COUNT (AUTO) 281 K/uL (150-450); RED BLOOD CELL COUNT(AUTO) 4.75 MIL/uL (4.50-5.90); RED CELL DISTRIBUTION WIDTH 14.3 % (11.5-14.5)
[2018-06-05 11:20] LABS: ANION GAP 9 mmol/L (8-16); CALCIUM, TOTAL 8.8 mg/dL (8.8-10.5); CARBON DIOXIDE 28 mmol/L (22-29); CHLORIDE 102 mmol/L (98-107); CREATININE 1.14 mg/dL (0.60-1.30); GLOMERULAR FILTR. RATE CALC > 60 mL/min (>60); GLUCOSE,RANDOM 89 mg/dL (70-110); POTASSIUM 4.1 mmol/L (3.5-5.1); SODIUM SERUM 139 mmol/L (136-145); UREA NITROGEN, BLOOD 13 mg/dL (7-18)
[2018-06-05 11:27] LABS: ALANINE AMINOTRANSFERASE 31 U/L (12-78); ALKALINE PHOSPHATASE 73 U/L (46-116); ASPARTATE AMINOTRANSFERASE 17 U/L (15-37); BILIRUBIN,TOTAL 0.4 mg/dL (0.1-1.0); TOTAL PROTEIN, SERUM 7.5 g/dL (6.4-8.2)
[2018-06-05 11:28] LABS: AMPHET/METH SCREEN,URINE NEGATIVE (NEGATIVE); BARBITURATE SCREEN, URINE NEGATIVE (NEGATIVE); BENZODIAZEPINES SCREEN,URINE NEGATIVE (NEGATIVE); CANNABINOID SCREEN,URINE NEGATIVE (NEGATIVE); COCAINE SCREEN,URINE NEGATIVE (NEGATIVE); METHADONE SCREEN, URINE NEGATIVE (NEGATIVE); OPIATE SCREEN,URINE NEGATIVE (NEGATIVE); PHENCYCLIDINE SCREEN,URINE NEGATIVE (NEGATIVE)
[2018-06-05] MEDS ORDERED: LORazepam 2 MG TABLET PO ONE (11:45)
[2018-06-05 11:50] LABS: APPEARANCE,URINE CLEAR (CLEAR); BILIRUBIN,URINE NEGATIVE (NEGATIVE); GLUCOSE, URINE (UA) NEGATIVE (NEGATIVE); KETONES,URINE NEGATIVE (NEGATIVE); LEUKOCYTE ESTERASE ,URINE NEGATIVE (NEGATIVE); NITRATE,URINE NEGATIVE (NEGATIVE); OCCULT BLOOD,URINE TRACE (NEGATIVE); PROTEIN,URINE NEGATIVE (NEGATIVE); UROBILINOGEN,URINE 0.2 mg/dL (<=1.0)
[2018-06-05 12:32] LABS: BACTERIA,URINE None Seen /HPF (None Seen); RBC,URINE 0-2 /HPF (0-2); WBC,URINE None Seen /HPF (0-5)
[2018-06-05] MEDS ORDERED: LORazepam 2 MG TABLET PO PRN (14:30)
[2018-06-05 17:22] VITALS: BP 127/75
[2018-06-05] MEDS ORDERED: CloNIDine HCL 0.1 MG TABLET PO PRN (17:45)
[2018-06-05] MEDS ORDERED: IBUPROFEN 400 MG TABLET PO PRN (17:45)
[2018-06-05] MEDS ORDERED: PETROLATUM,WHITE 71 GM JELLY TP PRN (17:45)
[2018-06-05] MEDS ORDERED: ACETAMINOPHEN 325 MG TABLET PO PRN (17:45)
[2018-06-05] MEDS ORDERED: NICOTINE 14 MG/24 HOUR PATCH TD PRN (17:45)
[2018-06-05] MEDS ORDERED: LOPERAMIDE HCL 2 MG CAPSULE PO PRN (17:45)
[2018-06-05] MEDS ORDERED: MAGNESIUM HYDROXIDE SUSPENSION 30 ML UDCUP PO PRN (17:45)
[2018-06-05] MEDS ORDERED: MAG HYDROX/AL HYDROX/SIMETH ES 30 ML SUSPENSION UDCUP PO PRN (17:45)
[2018-06-05] MEDS ORDERED: ALBUTEROL SULFATE HFA 90 MCG/PUFF 8 GM INHALER IH PRN (17:45)
[2018-06-05] MEDS ORDERED: DOCUSATE SODIUM 100 MG CAPSULE PO PRN (17:45)
[2018-06-05] MEDS ORDERED: GuaiFENesin/D-METHORPHAN [SUGAR-FREE] 200-20MG/10 ML SYRUP UDCUP PO PRN (17:45)
[2018-06-05] MEDS ORDERED: ONDANSETRON HCL 4 MG TABLET PO PRN (17:45)
[2018-06-06 06:32] LABS: HEMOGLOBIN A1C 4.9 % (4.5-6.2)
[2018-06-06 07:04] LABS: CHOL/HDL RATIO 4.9 (4.2-7.3); THYROID STIMULATING HORMONE 3.42 uIU/mL (0.36-3.74)
[2018-06-06 08:05] VITALS: BP 115/76
[2018-06-06] MEDS: NICOTINE 14 MG/24 HOUR PATCH TD SCH (10:11)
[2018-06-06] MEDS: LORazepam 2 MG TABLET PO PRN ×3 (14:13→18:25)
[2018-06-06 16:30] VITALS: BP 121/82
[2018-06-06] MEDS: LITHIUM CARBONATE 300 MG CAPSULE PO SCH (17:42)
[2018-06-06] MEDS: HALOPERIDOL 5 MG TABLET PO PRN (18:25)
[2018-06-06] MEDS ORDERED: HALOPERIDOL LACTATE 5 MG/ML VIAL ONE (19:21)
[2018-06-06] MEDS ORDERED: DiphenhydrAMINE HCL 50 MG/ML VIAL ONE (19:21)
[2018-06-06] MEDS ORDERED: DiphenhydrAMINE HCL 50 MG/ML VIAL IM ONE (19:30)
[2018-06-06] MEDS ORDERED: HALOPERIDOL LACTATE 5 MG/ML VIAL IM ONE (19:30)
[2018-06-07] MEDS: LITHIUM CARBONATE 300 MG CAPSULE PO SCH ×2 (07:01→16:55)
[2018-06-07 08:45] VITALS: BP 113/80
[2018-06-07] MEDS: NICOTINE 14 MG/24 HOUR PATCH TD SCH (09:00)
[2018-06-07] MEDS: LORazepam 2 MG TABLET PO PRN (10:21)
[2018-06-07] MEDS: HALOPERIDOL 5 MG TABLET PO PRN ×3 (10:22→21:00)
[2018-06-07 16:26] VITALS: BP 124/78
[2018-06-07] MEDS: LORazepam 1 MG TABLET PO PRN ×2 (16:30→21:00)
[2018-06-07] MEDS: ZOLPIDEM TARTRATE 10 MG TABLET PO PRN (22:04)
[2018-06-08] MEDS: LITHIUM CARBONATE 300 MG CAPSULE PO SCH ×2 (07:04→17:17)
[2018-06-08 08:52] VITALS: BP 120/70
[2018-06-08] MEDS: NICOTINE 14 MG/24 HOUR PATCH TD SCH (09:00)
[2018-06-08] MEDS: LORazepam 1 MG TABLET PO PRN ×4 (09:40→23:09)
[2018-06-08] MEDS: HALOPERIDOL 5 MG TABLET PO PRN ×2 (09:40→13:29)
[2018-06-08 16:00] VITALS: BP 128/56
[2018-06-08] MEDS: ZOLPIDEM TARTRATE 10 MG TABLET PO PRN (21:37)
[2018-06-09] MEDS: LITHIUM CARBONATE 300 MG CAPSULE PO SCH ×2 (07:33→16:41)
[2018-06-09 08:25] VITALS: BP 132/78
[2018-06-09] MEDS: LORazepam 1 MG TABLET PO PRN ×4 (08:46→22:06)
[2018-06-09] MEDS ORDERED: NICOTINE 14 MG/24 HOUR PATCH TD PRN (09:30)
[2018-06-09 17:13] VITALS: BP 128/78
[2018-06-09] MEDS: HALOPERIDOL 5 MG TABLET PO PRN (18:03)
[2018-06-09] MEDS: ZOLPIDEM TARTRATE 10 MG TABLET PO PRN (21:00)
[2018-06-10] MEDS: HALOPERIDOL 5 MG TABLET PO PRN ×2 (02:30→21:04)
[2018-06-10] MEDS: LORazepam 1 MG TABLET PO PRN ×5 (02:30→21:04)
[2018-06-10] MEDS: LITHIUM CARBONATE 300 MG CAPSULE PO SCH ×2 (07:04→17:52)
[2018-06-10 08:45] VITALS: BP 121/71
[2018-06-10 16:23] VITALS: BP 107/79
[2018-06-10] MEDS: ZOLPIDEM TARTRATE 10 MG TABLET PO PRN (22:47)
[2018-06-11] MEDS: LORazepam 1 MG TABLET PO PRN ×5 (01:40→19:13)
[2018-06-11] MEDS: LITHIUM CARBONATE 300 MG CAPSULE PO SCH ×2 (07:04→17:33)
[2018-06-11 08:15] VITALS: BP 131/76
[2018-06-11] MEDS: HALOPERIDOL 5 MG TABLET PO PRN ×2 (10:42→15:12)
[2018-06-11 17:52] VITALS: BP 122/67
[2018-06-11] MEDS: ZOLPIDEM TARTRATE 10 MG TABLET PO PRN (20:33)
[2018-06-12] MEDS: LORazepam 1 MG TABLET PO PRN ×6 (00:29→23:29)
[2018-06-12] MEDS: LITHIUM CARBONATE 300 MG CAPSULE PO SCH ×2 (06:54→17:47)
[2018-06-12] MEDS: HALOPERIDOL 5 MG TABLET PO PRN ×2 (09:40→13:42)
[2018-06-12 09:43] VITALS: BP 105/64
[2018-06-12] MEDS ORDERED: DENTURE ADHESIVE 68 GM CREAM DT PRN (10:45)
[2018-06-12 16:30] VITALS: BP 118/66
[2018-06-12] MEDS: ZOLPIDEM TARTRATE 10 MG TABLET PO PRN (20:25)
[2018-06-13] MEDS: LORazepam 1 MG TABLET PO PRN ×5 (04:44→22:23)
[2018-06-13] MEDS: LITHIUM CARBONATE 300 MG CAPSULE PO SCH ×2 (07:17→17:03)
[2018-06-13] MEDS: HALOPERIDOL 5 MG TABLET PO PRN ×2 (09:12→13:18)
[2018-06-13 13:20] VITALS: BP 106/72
[2018-06-13 17:00] VITALS: BP 128/77
[2018-06-13] MEDS: ZOLPIDEM TARTRATE 10 MG TABLET PO PRN (20:31)
[2018-06-14 01:48] VITALS: BP 110/67
[2018-06-14] MEDS: LORazepam 1 MG TABLET PO PRN ×5 (03:23→23:46)
[2018-06-14] MEDS: LITHIUM CARBONATE 300 MG CAPSULE PO SCH ×2 (07:01→17:20)
[2018-06-14] MEDS: HALOPERIDOL 5 MG TABLET PO PRN ×2 (08:36→12:46)
[2018-06-14 09:35] VITALS: BP 120/79
[2018-06-14 16:30] VITALS: BP 137/78
[2018-06-14] MEDS: ZOLPIDEM TARTRATE 10 MG TABLET PO PRN (20:07)
[2018-06-15] MEDS: LORazepam 1 MG TABLET PO PRN ×2 (04:40→09:41)
[2018-06-15] MEDS: LITHIUM CARBONATE 300 MG CAPSULE PO SCH (06:53)
[2018-06-15] MEDS: HALOPERIDOL 5 MG TABLET PO PRN (09:41)
[2018-06-15 09:42] VITALS: BP 123/81
[2018-06-15] MEDS ORDERED: LITH300C3 PO (11:10)
[2018-07-16] MEDS ORDERED: OLAN10TA3 PO (10:40)
[2018-07-16] MEDS ORDERED: ESCI10TA PO (10:40)
[2018-07-16] MEDS ORDERED: AMLO-511 PO (10:49)
[2018-07-16] MEDS ORDERED: OLAN10TA20 PO (12:11)
[2018-07-16] MEDS ORDERED: ESCI10TA54 PO (12:11)
[2018-07-16] MEDS ORDERED: LITH300C3 PO (12:11)
== END 2018-06-15 11:45 | disposition home or self-care (01) | DRG 751 ==
LOC: EMS 10:37 → 3EI 15:57 → 3EC 06-06 20:32 → 3EI 06-12 11:07
DX: F33.2 Major depressive disorder, recurrent severe without psychotic features (principal); R45.851 Suicidal ideations; G62.9 Polyneuropathy, unspecified; E78.5 Hyperlipidemia, unspecified; I10 Essential (primary) hypertension; J44.9 Chronic obstructive pulmonary disease, unspecified; K21.9 Gastro-esophageal reflux disease without esophagitis; F41.9 Anxiety disorder, unspecified; F17.210 Nicotine dependence, cigarettes, uncomplicated; F10.10 Alcohol abuse, uncomplicated; F19.10 Other psychoactive substance abuse, uncomplicated; Z71.51 Drug abuse counseling and surveillance of drug abuser; Z91.5 Personal history of self-harm; Z82.49 Family history of ischemic heart disease and other diseases of the circulatory system; Z59.0 Homelessness; Z71.6 Tobacco abuse counseling
CPT/HCPCS: 83036; 84443; 87081; 99406; G0480; J1200; J1630

== ENCOUNTER 2018-08-01 13:25 | Inpatient (IN) | payer MEDICAID, OTHER ==
[~2018-08-01] VITALS: Ht 180.3 cm; Wt 88.9 kg
[~2018-08-01 13:25] MED LIST changes: +AMLO-511 PO; +ESCI10TA54 PO; -FLUO-191 PO; +LITH300C3 PO; +OLAN10TA20 PO
[2018-08-01 13:53] LABS: BASOPHILS % (AUTO) 0.7 % (0.0-2.0); HEMATOCRIT 39.7 % (41-53); HEMOGLOBIN 13.4 g/dL (13.5-17.5); LYMPHOCYTES # (AUTO) 1.9 K/uL (1.0-4.8); LYMPHOCYTES % (AUTO) 24.9 % (22.0-44.0); MEAN CORPUSCULAR HEMOGLOBIN 30.5 pg (26.0-34.0); MEAN CORPUSCULAR HGB CONC 33.6 G/dL (31.0-37.0); MEAN CORPUSCULAR VOLUME 91 fL (80-100); MONOCYTES # (AUTO) 0.7 K/uL (0.1-1.0); MONOCYTES % (AUTO) 9.5 % (2.0-9.0); NEUTROPHILS # (AUTO) 4.9 K/uL (1.8-7.7); NEUTROPHILS % (AUTO) 63.9 % (40.0-70.0); PLATELET COUNT (AUTO) 350 K/uL (150-450); RED BLOOD CELL COUNT(AUTO) 4.38 MIL/uL (4.50-5.90)
[2018-08-01] MEDS ORDERED: ALBUTEROL SULFATE HFA 90 MCG/PUFF 8 GM INHALER IH PRN (15:45)
[2018-08-01] MEDS ORDERED: MAG HYDROX/AL HYDROX/SIMETH ES 30 ML SUSPENSION UDCUP PO PRN (15:45)
[2018-08-01] MEDS ORDERED: ONDANSETRON HCL 4 MG TABLET PO PRN (15:45)
[2018-08-01] MEDS ORDERED: GuaiFENesin/D-METHORPHAN [SUGAR-FREE] 200-20MG/10 ML SYRUP UDCUP PO PRN (15:45)
[2018-08-01] MEDS ORDERED: LOPERAMIDE HCL 2 MG CAPSULE PO PRN (15:45)
[2018-08-01] MEDS ORDERED: ACETAMINOPHEN 325 MG TABLET PO PRN (15:45)
[2018-08-01] MEDS ORDERED: PETROLATUM,WHITE 71 GM JELLY TP PRN (15:45)
[2018-08-01] MEDS ORDERED: CloNIDine HCL 0.1 MG TABLET PO PRN (15:45)
[2018-08-01] MEDS ORDERED: NICOTINE 14 MG/24 HOUR PATCH TD PRN (15:45)
[2018-08-01] MEDS ORDERED: MAGNESIUM HYDROXIDE SUSPENSION 30 ML UDCUP PO PRN (15:45)
[2018-08-01] MEDS ORDERED: DOCUSATE SODIUM 100 MG CAPSULE PO PRN (15:45)
[2018-08-01 16:27] LABS: CHLORIDE 106 mmol/L (98-107); POTASSIUM 3.9 mmol/L (3.5-5.1); SODIUM SERUM 143 mmol/L (136-145)
[2018-08-01 16:28] LABS: ALANINE AMINOTRANSFERASE 28 U/L (12-78); ALBUMIN 3.6 g/dL (3.4-5.0); ALKALINE PHOSPHATASE 58 U/L (46-116); ANION GAP 9 mmol/L (8-16); ASPARTATE AMINOTRANSFERASE 21 U/L (15-37); BILIRUBIN,TOTAL 0.4 mg/dL (0.1-1.0); CALCIUM, TOTAL 8.8 mg/dL (8.8-10.5); CARBON DIOXIDE 28 mmol/L (22-29); CREATININE 1.36 mg/dL (0.60-1.30); GLOMERULAR FILTR. RATE CALC 55 mL/min (>60); GLUCOSE,RANDOM 73 mg/dL (70-110); TOTAL PROTEIN, SERUM 6.5 g/dL (6.4-8.2); UREA NITROGEN, BLOOD 11 mg/dL (7-18)
[2018-08-01] MEDS: LORazepam 2 MG TABLET PO PRN (16:36)
[2018-08-01] MEDS ORDERED: HALOPERIDOL 5 MG TABLET PO ONE (17:00)
[2018-08-01] MEDS ORDERED: LORazepam 1 MG TABLET PO ONE (17:00)
[2018-08-01 17:21] LABS: AMPHET/METH SCREEN,URINE POSITIVE (NEGATIVE); BARBITURATE SCREEN, URINE NEGATIVE (NEGATIVE); BENZODIAZEPINES SCREEN,URINE NEGATIVE (NEGATIVE); CANNABINOID SCREEN,URINE NEGATIVE (NEGATIVE); COCAINE SCREEN,URINE NEGATIVE (NEGATIVE); METHADONE SCREEN, URINE NEGATIVE (NEGATIVE); OPIATE SCREEN,URINE NEGATIVE (NEGATIVE)
[2018-08-01 17:31] LABS: PHENCYCLIDINE SCREEN,URINE NEGATIVE (NEGATIVE)
[2018-08-01 17:47] LABS: APPEARANCE,URINE CLEAR (CLEAR); BILIRUBIN,URINE NEGATIVE (NEGATIVE); GLUCOSE, URINE (UA) NEGATIVE (NEGATIVE); KETONES,URINE NEGATIVE (NEGATIVE); LEUKOCYTE ESTERASE ,URINE NEGATIVE (NEGATIVE); NITRATE,URINE NEGATIVE (NEGATIVE); OCCULT BLOOD,URINE TRACE (NEGATIVE); PROTEIN,URINE NEGATIVE (NEGATIVE)
[2018-08-01 18:02] LABS: RBC,URINE 0-2 /HPF (0-2); WBC,URINE 0-2 /HPF (0-5)
[2018-08-01 18:03] LABS: BACTERIA,URINE None Seen /HPF (None Seen); SQUAMOUS EPITHELIAL CELL,UR Rare /LPF (None Seen)
[2018-08-01 18:54] VITALS: BP 137/83
[2018-08-01] MEDS: IBUPROFEN 400 MG TABLET PO PRN (19:08)
[2018-08-01] MEDS: ZOLPIDEM TARTRATE 10 MG TABLET PO PRN (20:11)
[2018-08-01] MEDS ORDERED: -PHARMACY VACCINE NOTE- MISC ONE (21:00)
[2018-08-02 06:31] VITALS: BP 136/78
[2018-08-02 08:13] VITALS: BP 140/82
[2018-08-02 08:28] LABS: BASOPHILS % (AUTO) 0.6 % (0.0-2.0); EOSINOPHILS % (AUTO) 1.5 % (1.0-6.0); HEMATOCRIT 40.4 % (41-53); HEMOGLOBIN 13.9 g/dL (13.5-17.5); LYMPHOCYTES # (AUTO) 1.9 K/uL (1.0-4.8); LYMPHOCYTES % (AUTO) 22.4 % (22.0-44.0); MEAN CORPUSCULAR HEMOGLOBIN 31.1 pg (26.0-34.0); MEAN CORPUSCULAR HGB CONC 34.5 G/dL (31.0-37.0); MEAN CORPUSCULAR VOLUME 90 fL (80-100); MONOCYTES # (AUTO) 0.6 K/uL (0.1-1.0); MONOCYTES % (AUTO) 6.8 % (2.0-9.0); NEUTROPHILS # (AUTO) 5.9 K/uL (1.8-7.7); NEUTROPHILS % (AUTO) 68.7 % (40.0-70.0); PLATELET COUNT (AUTO) 316 K/uL (150-450); RED BLOOD CELL COUNT(AUTO) 4.48 MIL/uL (4.50-5.90); RED CELL DISTRIBUTION WIDTH 13.8 % (11.5-14.5)
[2018-08-02 08:37] LABS: HEMOGLOBIN A1C 5.5 % (4.5-6.2)
[2018-08-02] MEDS: LORazepam 2 MG TABLET PO PRN ×3 (08:44→21:14)
[2018-08-02] MEDS: IBUPROFEN 400 MG TABLET PO PRN (08:45)
[2018-08-02] MEDS: OLANZapine 5 MG RAPDIS TABLET PO PRN (08:45)
[2018-08-02 08:56] LABS: ALANINE AMINOTRANSFERASE 22 U/L (12-78); ALBUMIN 3.2 g/dL (3.4-5.0); ALKALINE PHOSPHATASE 59 U/L (46-116); ANION GAP 4 mmol/L (8-16); ASPARTATE AMINOTRANSFERASE 16 U/L (15-37); BILIRUBIN,TOTAL 0.3 mg/dL (0.1-1.0); CALCIUM, TOTAL 8.3 mg/dL (8.8-10.5); CARBON DIOXIDE 32 mmol/L (22-29); CHLORIDE 108 mmol/L (98-107); CHOL/HDL RATIO 4.6 (4.2-7.3); CHOLESTEROL 195 mg/dL (131-200); GLOMERULAR FILTR. RATE CALC > 60 mL/min (>60); GLUCOSE,RANDOM 76 mg/dL (70-110); HDL CHOLESTEROL 42 mg/dL (40-60); LDL CHOL (CALC.) 133 mg/dL (0-130); SODIUM SERUM 144 mmol/L (136-145); THYROID STIMULATING HORMONE 4.69 uIU/mL (0.36-3.74); TOTAL PROTEIN, SERUM 6.4 g/dL (6.4-8.2); TRIGLYCERIDES 102 mg/dL (15-150); UREA NITROGEN, BLOOD 13 mg/dL (7-18)
[2018-08-02] MEDS: ESCITALOPRAM OXALATE 10 MG TABLET PO SCH (09:34)
[2018-08-02] MEDS: LITHIUM CARBONATE 300 MG CAPSULE PO SCH (16:49)
[2018-08-02] MEDS: OLANZapine 10 MG TABLET PO SCH (21:14)
[2018-08-02] MEDS: ZOLPIDEM TARTRATE 10 MG TABLET PO PRN (21:14)
[2018-08-03 06:20] VITALS: BP 117/64
[2018-08-03] MEDS: LITHIUM CARBONATE 300 MG CAPSULE PO SCH ×2 (06:22→17:03)
[2018-08-03] MEDS: IBUPROFEN 400 MG TABLET PO PRN (06:22)
[2018-08-03 08:38] VITALS: BP 121/69
[2018-08-03] MEDS: LORazepam 2 MG TABLET PO PRN ×2 (08:45→20:25)
[2018-08-03] MEDS: AmLODIPine BESYLATE 5 MG TABLET PO SCH (08:45)
[2018-08-03] MEDS: ESCITALOPRAM OXALATE 10 MG TABLET PO SCH (08:45)
[2018-08-03 16:00] VITALS: BP 124/71
[2018-08-03] MEDS: OLANZapine 10 MG TABLET PO SCH (20:25)
[2018-08-03] MEDS: ZOLPIDEM TARTRATE 10 MG TABLET PO PRN (20:25)
[2018-08-04 06:17] VITALS: BP 122/78
[2018-08-04] MEDS: LITHIUM CARBONATE 300 MG CAPSULE PO SCH ×2 (06:45→16:58)
[2018-08-04 08:01] VITALS: BP 126/74
[2018-08-04] MEDS: AmLODIPine BESYLATE 5 MG TABLET PO SCH (08:26)
[2018-08-04] MEDS: ESCITALOPRAM OXALATE 10 MG TABLET PO SCH (08:26)
[2018-08-04 16:42] VITALS: BP 134/86
[2018-08-04] MEDS: LORazepam 2 MG TABLET PO PRN (16:58)
[2018-08-04] MEDS: OLANZapine 10 MG TABLET PO SCH (20:05)
[2018-08-04] MEDS: ZOLPIDEM TARTRATE 10 MG TABLET PO PRN (20:44)
[2018-08-05] MEDS: LITHIUM CARBONATE 300 MG CAPSULE PO SCH ×2 (06:28→16:31)
[2018-08-05] MEDS: LORazepam 2 MG TABLET PO PRN ×2 (06:30→13:13)
[2018-08-05 07:17] VITALS: BP 128/85
[2018-08-05 08:02] VITALS: BP 124/82
[2018-08-05] MEDS: AmLODIPine BESYLATE 5 MG TABLET PO SCH (08:09)
[2018-08-05] MEDS: ESCITALOPRAM OXALATE 10 MG TABLET PO SCH (08:09)
[2018-08-05 16:17] VITALS: BP 118/84
[2018-08-05] MEDS: OLANZapine 10 MG TABLET PO SCH (20:26)
[2018-08-05] MEDS: ZOLPIDEM TARTRATE 10 MG TABLET PO PRN (20:26)
[2018-08-06 06:22] VITALS: BP 115/79
[2018-08-06] MEDS: LORazepam 2 MG TABLET PO PRN ×3 (06:28→21:09)
[2018-08-06] MEDS: LITHIUM CARBONATE 300 MG CAPSULE PO SCH ×2 (06:28→16:48)
[2018-08-06] MEDS: ESCITALOPRAM OXALATE 10 MG TABLET PO SCH (08:15)
[2018-08-06] MEDS: AmLODIPine BESYLATE 5 MG TABLET PO SCH (08:15)
[2018-08-06 08:34] VITALS: BP 132/75
[2018-08-06 16:00] VITALS: BP 125/85
[2018-08-06] MEDS: OLANZapine 10 MG TABLET PO SCH (21:09)
[2018-08-06] MEDS: ZOLPIDEM TARTRATE 10 MG TABLET PO PRN (21:09)
[2018-08-07] MEDS: LITHIUM CARBONATE 300 MG CAPSULE PO SCH ×2 (06:35→16:40)
[2018-08-07] MEDS: LORazepam 2 MG TABLET PO PRN ×3 (06:36→20:48)
[2018-08-07 06:43] VITALS: BP 122/76
[2018-08-07 08:00] VITALS: BP 123/79
[2018-08-07] MEDS: AmLODIPine BESYLATE 5 MG TABLET PO SCH (08:51)
[2018-08-07] MEDS: ESCITALOPRAM OXALATE 10 MG TABLET PO SCH (08:51)
[2018-08-07 17:23] VITALS: BP 123/74
[2018-08-07] MEDS: ZOLPIDEM TARTRATE 10 MG TABLET PO PRN (20:48)
[2018-08-07] MEDS: OLANZapine 10 MG TABLET PO SCH (20:48)
[2018-08-08 06:32] VITALS: BP 117/76
[2018-08-08] MEDS: LITHIUM CARBONATE 300 MG CAPSULE PO SCH ×2 (06:40→16:17)
[2018-08-08] MEDS: LORazepam 2 MG TABLET PO PRN ×3 (06:40→16:17)
[2018-08-08 08:06] VITALS: BP 123/73
[2018-08-08] MEDS: AmLODIPine BESYLATE 5 MG TABLET PO SCH (08:44)
[2018-08-08] MEDS: ESCITALOPRAM OXALATE 10 MG TABLET PO SCH (08:44)
[2018-08-08 16:00] VITALS: BP 127/82
[2018-08-08] MEDS: OLANZapine 10 MG TABLET PO SCH (20:13)
[2018-08-08] MEDS: ZOLPIDEM TARTRATE 10 MG TABLET PO PRN (20:46)
[2018-08-09 06:26] VITALS: BP 122/79
[2018-08-09] MEDS: LORazepam 2 MG TABLET PO PRN ×3 (07:00→16:32)
[2018-08-09] MEDS: LITHIUM CARBONATE 300 MG CAPSULE PO SCH ×2 (07:00→16:32)
[2018-08-09 08:02] VITALS: BP 118/76
[2018-08-09] MEDS: AmLODIPine BESYLATE 5 MG TABLET PO SCH (08:34)
[2018-08-09] MEDS: ESCITALOPRAM OXALATE 10 MG TABLET PO SCH (08:34)
[2018-08-09] MEDS: MULTIVITAMINS WITH MINERALS, THERAPEUTIC TABLET PO SCH (08:34)
[2018-08-09 16:00] VITALS: BP 140/87
[2018-08-09] MEDS: ZOLPIDEM TARTRATE 10 MG TABLET PO PRN (20:22)
[2018-08-09] MEDS: OLANZapine 10 MG TABLET PO SCH (20:22)
[2018-08-10 02:04] VITALS: BP 125/85
[2018-08-10] MEDS: LORazepam 2 MG TABLET PO PRN ×3 (02:07→16:46)
[2018-08-10] MEDS: LEVOTHYROXINE SODIUM 75 MCG TABLET PO SCH (06:47)
[2018-08-10] MEDS: LITHIUM CARBONATE 300 MG CAPSULE PO SCH ×2 (06:47→16:04)
[2018-08-10] MEDS: MULTIVITAMINS WITH MINERALS, THERAPEUTIC TABLET PO SCH (08:18)
[2018-08-10] MEDS: ESCITALOPRAM OXALATE 10 MG TABLET PO SCH (08:18)
[2018-08-10] MEDS: AmLODIPine BESYLATE 5 MG TABLET PO SCH (08:18)
[2018-08-10 08:47] VITALS: BP 146/70
[2018-08-10 16:00] VITALS: BP 113/65
[2018-08-10] MEDS: OLANZapine 10 MG TABLET PO SCH (20:13)
[2018-08-10] MEDS: ZOLPIDEM TARTRATE 10 MG TABLET PO PRN (20:13)
[2018-08-11 06:01] VITALS: BP 124/75
[2018-08-11] MEDS: LEVOTHYROXINE SODIUM 75 MCG TABLET PO SCH (07:00)
[2018-08-11] MEDS: LORazepam 2 MG TABLET PO PRN ×3 (07:00→17:39)
[2018-08-11] MEDS: LITHIUM CARBONATE 300 MG CAPSULE PO SCH ×2 (07:00→16:37)
[2018-08-11 07:09] VITALS: BP 117/68
[2018-08-11 08:02] VITALS: BP 126/76
[2018-08-11] MEDS: MULTIVITAMINS WITH MINERALS, THERAPEUTIC TABLET PO SCH (08:08)
[2018-08-11] MEDS: ESCITALOPRAM OXALATE 10 MG TABLET PO SCH (08:08)
[2018-08-11] MEDS: AmLODIPine BESYLATE 5 MG TABLET PO SCH (08:08)
[2018-08-11] MEDS: GABAPENTIN 100 MG CAPSULE PO SCH ×3 (10:23→20:15)
[2018-08-11 16:49] VITALS: BP 101/60
[2018-08-11] MEDS: OLANZapine 10 MG TABLET PO SCH (20:15)
[2018-08-11] MEDS: ZOLPIDEM TARTRATE 10 MG TABLET PO PRN (20:15)
[2018-08-12 06:14] VITALS: BP 105/68
[2018-08-12] MEDS: LITHIUM CARBONATE 300 MG CAPSULE PO SCH ×2 (06:39→16:10)
[2018-08-12] MEDS: LORazepam 2 MG TABLET PO PRN ×3 (06:39→16:31)
[2018-08-12] MEDS: LEVOTHYROXINE SODIUM 75 MCG TABLET PO SCH (06:39)
[2018-08-12] MEDS: MULTIVITAMINS WITH MINERALS, THERAPEUTIC TABLET PO SCH (08:54)
[2018-08-12] MEDS: GABAPENTIN 100 MG CAPSULE PO SCH ×3 (08:54→20:07)
[2018-08-12] MEDS: AmLODIPine BESYLATE 5 MG TABLET PO SCH (08:54)
[2018-08-12] MEDS: ESCITALOPRAM OXALATE 10 MG TABLET PO SCH (08:54)
[2018-08-12 10:03] VITALS: BP 112/63
[2018-08-12 16:14] VITALS: BP 122/73
[2018-08-12] MEDS: OLANZapine 10 MG TABLET PO SCH (20:07)
[2018-08-13 06:01] VITALS: BP 112/78
[2018-08-13] MEDS: LITHIUM CARBONATE 300 MG CAPSULE PO SCH ×2 (06:30→16:38)
[2018-08-13] MEDS: LEVOTHYROXINE SODIUM 75 MCG TABLET PO SCH (06:30)
[2018-08-13] MEDS: LORazepam 2 MG TABLET PO PRN ×3 (06:30→14:52)
[2018-08-13 08:02] VITALS: BP 116/72
[2018-08-13] MEDS: GABAPENTIN 100 MG CAPSULE PO SCH ×3 (08:22→20:12)
[2018-08-13] MEDS: AmLODIPine BESYLATE 5 MG TABLET PO SCH (08:22)
[2018-08-13] MEDS: ESCITALOPRAM OXALATE 10 MG TABLET PO SCH (08:22)
[2018-08-13] MEDS: MULTIVITAMINS WITH MINERALS, THERAPEUTIC TABLET PO SCH (08:22)
[2018-08-13 16:09] VITALS: BP 119/73
[2018-08-13] MEDS: OLANZapine 5 MG RAPDIS TABLET PO PRN (16:38)
[2018-08-13] MEDS: OLANZapine 10 MG TABLET PO SCH (20:11)
[2018-08-13] MEDS: ZOLPIDEM TARTRATE 10 MG TABLET PO PRN (20:12)
[2018-08-14 05:48] VITALS: BP 110/70
[2018-08-14] MEDS: LEVOTHYROXINE SODIUM 75 MCG TABLET PO SCH (06:44)
[2018-08-14] MEDS: LITHIUM CARBONATE 300 MG CAPSULE PO SCH ×2 (07:01→16:31)
[2018-08-14 08:01] VITALS: BP 118/60
[2018-08-14] MEDS: ESCITALOPRAM OXALATE 10 MG TABLET PO SCH (08:25)
[2018-08-14] MEDS: MULTIVITAMINS WITH MINERALS, THERAPEUTIC TABLET PO SCH (08:25)
[2018-08-14] MEDS: GABAPENTIN 100 MG CAPSULE PO SCH ×3 (08:25→20:17)
[2018-08-14] MEDS: AmLODIPine BESYLATE 5 MG TABLET PO SCH (08:25)
[2018-08-14] MEDS: LORazepam 2 MG TABLET PO PRN ×3 (08:26→17:53)
[2018-08-14] MEDS: OLANZapine 5 MG RAPDIS TABLET PO PRN (16:31)
[2018-08-14 16:34] VITALS: BP 117/74
[2018-08-14] MEDS: ZOLPIDEM TARTRATE 10 MG TABLET PO PRN (20:17)
[2018-08-14] MEDS: OLANZapine 10 MG TABLET PO SCH (20:17)
[2018-08-15] MEDS: LORazepam 2 MG TABLET PO PRN ×2 (06:19→13:54)
[2018-08-15] MEDS: LEVOTHYROXINE SODIUM 75 MCG TABLET PO SCH (06:19)
[2018-08-15] MEDS: LITHIUM CARBONATE 300 MG CAPSULE PO SCH ×2 (06:19→16:24)
[2018-08-15 07:08] VITALS: BP 128/80
[2018-08-15 08:03] VITALS: BP 130/82
[2018-08-15] MEDS: GABAPENTIN 100 MG CAPSULE PO SCH (08:31)
[2018-08-15] MEDS: MULTIVITAMINS WITH MINERALS, THERAPEUTIC TABLET PO SCH (08:31)
[2018-08-15] MEDS: ESCITALOPRAM OXALATE 10 MG TABLET PO SCH (08:31)
[2018-08-15] MEDS: AmLODIPine BESYLATE 5 MG TABLET PO SCH (08:32)
[2018-08-15 16:09] VITALS: BP 113/75
[2018-08-15] MEDS: GABAPENTIN 300 MG CAPSULE PO SCH ×2 (16:24→20:11)
[2018-08-15] MEDS: OLANZapine 10 MG TABLET PO SCH (20:11)
[2018-08-15] MEDS: ZOLPIDEM TARTRATE 10 MG TABLET PO PRN (20:42)
[2018-08-16] MEDS: OLANZapine 5 MG RAPDIS TABLET PO PRN ×2 (00:36→16:48)
[2018-08-16] MEDS: LORazepam 2 MG TABLET PO PRN ×3 (00:36→16:48)
[2018-08-16 01:04] VITALS: BP 118/76
[2018-08-16] MEDS: LEVOTHYROXINE SODIUM 75 MCG TABLET PO SCH (06:36)
[2018-08-16] MEDS: LITHIUM CARBONATE 300 MG CAPSULE PO SCH ×2 (06:39→16:48)
[2018-08-16 08:16] VITALS: BP 131/66
[2018-08-16] MEDS: MULTIVITAMINS WITH MINERALS, THERAPEUTIC TABLET PO SCH (09:14)
[2018-08-16] MEDS: GABAPENTIN 300 MG CAPSULE PO SCH ×3 (09:14→20:41)
[2018-08-16] MEDS: ESCITALOPRAM OXALATE 10 MG TABLET PO SCH (09:15)
[2018-08-16] MEDS: AmLODIPine BESYLATE 5 MG TABLET PO SCH (09:15)
[2018-08-16 16:02] VITALS: BP 114/69
[2018-08-16] MEDS: ZOLPIDEM TARTRATE 10 MG TABLET PO PRN (20:41)
[2018-08-16] MEDS: OLANZapine 10 MG TABLET PO SCH (20:41)
[2018-08-17 06:46] VITALS: BP 115/70
[2018-08-17] MEDS: LITHIUM CARBONATE 300 MG CAPSULE PO SCH ×2 (06:47→16:05)
[2018-08-17] MEDS: LEVOTHYROXINE SODIUM 75 MCG TABLET PO SCH (06:47)
[2018-08-17] MEDS: LORazepam 2 MG TABLET PO PRN ×3 (06:53→20:33)
[2018-08-17 08:03] VITALS: BP 110/67
[2018-08-17] MEDS: MULTIVITAMINS WITH MINERALS, THERAPEUTIC TABLET PO SCH (09:15)
[2018-08-17] MEDS: AmLODIPine BESYLATE 5 MG TABLET PO SCH (09:15)
[2018-08-17] MEDS: ESCITALOPRAM OXALATE 10 MG TABLET PO SCH (09:15)
[2018-08-17] MEDS: GABAPENTIN 300 MG CAPSULE PO SCH ×3 (09:15→20:07)
[2018-08-17 17:10] VITALS: BP 125/73
[2018-08-17] MEDS: OLANZapine 10 MG TABLET PO SCH (20:07)
[2018-08-17] MEDS: ZOLPIDEM TARTRATE 10 MG TABLET PO PRN (20:33)
[2018-08-18 05:49] VITALS: BP 117/82
[2018-08-18] MEDS: LEVOTHYROXINE SODIUM 75 MCG TABLET PO SCH (06:17)
[2018-08-18] MEDS: LITHIUM CARBONATE 300 MG CAPSULE PO SCH (07:40)
[2018-08-18 08:03] VITALS: BP 123/78
[2018-08-18] MEDS: OLANZapine 5 MG TABLET PO SCH (08:16)
[2018-08-18] MEDS: ESCITALOPRAM OXALATE 10 MG TABLET PO SCH (08:16)
[2018-08-18] MEDS: AmLODIPine BESYLATE 5 MG TABLET PO SCH (08:16)
[2018-08-18] MEDS: GABAPENTIN 300 MG CAPSULE PO SCH ×3 (08:16→20:58)
[2018-08-18] MEDS: LORazepam 2 MG TABLET PO PRN ×3 (08:16→20:59)
[2018-08-18] MEDS: MULTIVITAMINS WITH MINERALS, THERAPEUTIC TABLET PO SCH (08:16)
[2018-08-18] MEDS ORDERED: LITHIUM CARBONATE 300 MG CAPSULE PO ONE (10:45)
[2018-08-18 16:00] VITALS: BP 115/64
[2018-08-18] MEDS: OLANZapine 5 MG RAPDIS TABLET PO PRN (16:41)
[2018-08-18] MEDS: LITHIUM CARBONATE 600 MG CAPSULE PO SCH (16:41)
[2018-08-18] MEDS: OLANZapine 10 MG TABLET PO SCH (20:58)
[2018-08-18] MEDS: ZOLPIDEM TARTRATE 10 MG TABLET PO PRN (20:59)
[2018-08-19 05:26] VITALS: BP 121/73
[2018-08-19] MEDS: LORazepam 2 MG TABLET PO PRN ×3 (06:39→17:56)
[2018-08-19] MEDS: LEVOTHYROXINE SODIUM 75 MCG TABLET PO SCH (06:39)
[2018-08-19] MEDS: AmLODIPine BESYLATE 5 MG TABLET PO SCH (08:17)
[2018-08-19] MEDS: MULTIVITAMINS WITH MINERALS, THERAPEUTIC TABLET PO SCH (08:17)
[2018-08-19] MEDS: GABAPENTIN 300 MG CAPSULE PO SCH ×3 (08:17→21:22)
[2018-08-19] MEDS: ESCITALOPRAM OXALATE 10 MG TABLET PO SCH (08:17)
[2018-08-19] MEDS: OLANZapine 5 MG TABLET PO SCH (08:17)
[2018-08-19] MEDS: LITHIUM CARBONATE 600 MG CAPSULE PO SCH ×2 (08:17→16:24)
[2018-08-19 08:50] VITALS: BP 105/62
[2018-08-19 16:00] VITALS: BP 122/72
[2018-08-19] MEDS: OLANZapine 10 MG TABLET PO SCH (20:36)
[2018-08-20 06:03] VITALS: BP 108/69
[2018-08-20] MEDS: LEVOTHYROXINE SODIUM 75 MCG TABLET PO SCH (06:48)
[2018-08-20] MEDS: LORazepam 2 MG TABLET PO PRN ×4 (06:48→22:41)
[2018-08-20] MEDS: ESCITALOPRAM OXALATE 10 MG TABLET PO SCH (08:18)
[2018-08-20] MEDS: OLANZapine 5 MG TABLET PO SCH (08:18)
[2018-08-20] MEDS: LITHIUM CARBONATE 600 MG CAPSULE PO SCH ×2 (08:18→16:42)
[2018-08-20] MEDS: AmLODIPine BESYLATE 5 MG TABLET PO SCH (08:18)
[2018-08-20] MEDS: GABAPENTIN 300 MG CAPSULE PO SCH ×3 (08:18→20:50)
[2018-08-20] MEDS: MULTIVITAMINS WITH MINERALS, THERAPEUTIC TABLET PO SCH (08:18)
[2018-08-20 08:21] VITALS: BP 107/62
[2018-08-20 16:00] VITALS: BP 127/87
[2018-08-20] MEDS: ZOLPIDEM TARTRATE 10 MG TABLET PO PRN (20:50)
[2018-08-20] MEDS: OLANZapine 10 MG TABLET PO SCH (20:50)
[2018-08-21 05:10] VITALS: BP 112/65
[2018-08-21] MEDS: LEVOTHYROXINE SODIUM 75 MCG TABLET PO SCH (06:29)
[2018-08-21] MEDS: LORazepam 2 MG TABLET PO PRN ×4 (06:29→20:20)
[2018-08-21 08:01] VITALS: BP 111/63
[2018-08-21] MEDS: GABAPENTIN 300 MG CAPSULE PO SCH ×3 (08:58→20:20)
[2018-08-21] MEDS: OLANZapine 5 MG RAPDIS TABLET PO PRN (08:58)
[2018-08-21] MEDS: LITHIUM CARBONATE 600 MG CAPSULE PO SCH ×2 (08:58→16:14)
[2018-08-21] MEDS: AmLODIPine BESYLATE 5 MG TABLET PO SCH (08:58)
[2018-08-21] MEDS: MULTIVITAMINS WITH MINERALS, THERAPEUTIC TABLET PO SCH (08:58)
[2018-08-21] MEDS: ESCITALOPRAM OXALATE 10 MG TABLET PO SCH (08:58)
[2018-08-21] MEDS: OLANZapine 5 MG TABLET PO SCH (09:21)
[2018-08-21 16:00] VITALS: BP 115/68
[2018-08-21] MEDS: OLANZapine 10 MG TABLET PO SCH (20:20)
[2018-08-21] MEDS: ZOLPIDEM TARTRATE 10 MG TABLET PO PRN (20:20)
[2018-08-22] MEDS: LORazepam 2 MG TABLET PO PRN ×4 (06:41→20:28)
[2018-08-22] MEDS: LEVOTHYROXINE SODIUM 75 MCG TABLET PO SCH (06:41)
[2018-08-22 07:17] VITALS: BP 116/62
[2018-08-22 08:03] VITALS: BP 111/63
[2018-08-22] MEDS: LITHIUM CARBONATE 600 MG CAPSULE PO SCH ×2 (08:17→16:17)
[2018-08-22] MEDS: AmLODIPine BESYLATE 5 MG TABLET PO SCH (08:17)
[2018-08-22] MEDS: GABAPENTIN 300 MG CAPSULE PO SCH ×3 (08:17→20:28)
[2018-08-22] MEDS: ESCITALOPRAM OXALATE 10 MG TABLET PO SCH (08:17)
[2018-08-22] MEDS: OLANZapine 5 MG TABLET PO SCH (08:18)
[2018-08-22] MEDS: MULTIVITAMINS WITH MINERALS, THERAPEUTIC TABLET PO SCH (08:18)
[2018-08-22 16:15] VITALS: BP 128/83
[2018-08-22] MEDS: OLANZapine 10 MG TABLET PO SCH (20:28)
[2018-08-22] MEDS: ZOLPIDEM TARTRATE 10 MG TABLET PO PRN (20:28)
[2018-08-23] MEDS: LEVOTHYROXINE SODIUM 75 MCG TABLET PO SCH (06:07)
[2018-08-23] MEDS: LORazepam 2 MG TABLET PO PRN ×3 (06:46→20:44)
[2018-08-23 08:02] VITALS: BP 114/68
[2018-08-23] MEDS: LITHIUM CARBONATE 600 MG CAPSULE PO SCH ×2 (08:11→16:22)
[2018-08-23] MEDS: GABAPENTIN 300 MG CAPSULE PO SCH ×3 (08:11→20:43)
[2018-08-23] MEDS: ESCITALOPRAM OXALATE 10 MG TABLET PO SCH (08:11)
[2018-08-23] MEDS: OLANZapine 5 MG TABLET PO SCH (08:11)
[2018-08-23] MEDS: AmLODIPine BESYLATE 5 MG TABLET PO SCH (08:11)
[2018-08-23] MEDS: MULTIVITAMINS WITH MINERALS, THERAPEUTIC TABLET PO SCH (08:12)
[2018-08-23 17:14] VITALS: BP 145/81
[2018-08-23] MEDS: OLANZapine 10 MG TABLET PO SCH (20:43)
[2018-08-23] MEDS: ZOLPIDEM TARTRATE 10 MG TABLET PO PRN (20:44)
[2018-08-24 06:15] VITALS: BP 125/79
[2018-08-24] MEDS: LORazepam 2 MG TABLET PO PRN ×4 (06:36→20:29)
[2018-08-24] MEDS: LEVOTHYROXINE SODIUM 75 MCG TABLET PO SCH (06:36)
[2018-08-24] MEDS: GABAPENTIN 300 MG CAPSULE PO SCH ×3 (08:09→20:29)
[2018-08-24] MEDS: LITHIUM CARBONATE 600 MG CAPSULE PO SCH ×2 (08:09→16:28)
[2018-08-24] MEDS: AmLODIPine BESYLATE 5 MG TABLET PO SCH (08:09)
[2018-08-24] MEDS: MULTIVITAMINS WITH MINERALS, THERAPEUTIC TABLET PO SCH (08:09)
[2018-08-24] MEDS: OLANZapine 5 MG TABLET PO SCH (08:09)
[2018-08-24] MEDS: ESCITALOPRAM OXALATE 10 MG TABLET PO SCH (08:09)
[2018-08-24 08:13] VITALS: BP 108/63
[2018-08-24 16:00] VITALS: BP 117/75
[2018-08-24] MEDS: ZOLPIDEM TARTRATE 10 MG TABLET PO PRN (20:29)
[2018-08-24] MEDS: OLANZapine 10 MG TABLET PO SCH (20:29)
[2018-08-25 06:24] VITALS: BP 105/68
[2018-08-25] MEDS: LORazepam 2 MG TABLET PO PRN ×4 (06:29→20:47)
[2018-08-25] MEDS: LEVOTHYROXINE SODIUM 75 MCG TABLET PO SCH (06:29)
[2018-08-25] MEDS ORDERED: LEVOTHYROXINE SODIUM 75 MCG TABLET PO SCH (06:30)
[2018-08-25 08:01] VITALS: BP 112/72
[2018-08-25] MEDS: ESCITALOPRAM OXALATE 10 MG TABLET PO SCH (09:17)
[2018-08-25] MEDS: GABAPENTIN 300 MG CAPSULE PO SCH ×3 (09:17→20:47)
[2018-08-25] MEDS: LITHIUM CARBONATE 600 MG CAPSULE PO SCH ×2 (09:17→16:29)
[2018-08-25] MEDS: OLANZapine 5 MG TABLET PO SCH (09:17)
[2018-08-25] MEDS: AmLODIPine BESYLATE 5 MG TABLET PO SCH (09:17)
[2018-08-25] MEDS: MULTIVITAMINS WITH MINERALS, THERAPEUTIC TABLET PO SCH (09:17)
[2018-08-25 17:15] VITALS: BP 123/65
[2018-08-25] MEDS: OLANZapine 10 MG TABLET PO SCH (20:47)
[2018-08-25] MEDS: ZOLPIDEM TARTRATE 10 MG TABLET PO PRN (20:47)
[2018-08-26 03:42] VITALS: BP 122/72
[2018-08-26] MEDS: LEVOTHYROXINE SODIUM 75 MCG TABLET PO SCH (06:34)
[2018-08-26] MEDS: LORazepam 2 MG TABLET PO PRN ×3 (06:34→20:10)
[2018-08-26 08:00] VITALS: BP 109/65
[2018-08-26] MEDS: ESCITALOPRAM OXALATE 10 MG TABLET PO SCH (09:17)
[2018-08-26] MEDS: MULTIVITAMINS WITH MINERALS, THERAPEUTIC TABLET PO SCH (09:18)
[2018-08-26] MEDS: OLANZapine 5 MG TABLET PO SCH (09:18)
[2018-08-26] MEDS: AmLODIPine BESYLATE 5 MG TABLET PO SCH (09:18)
[2018-08-26] MEDS: GABAPENTIN 300 MG CAPSULE PO SCH ×3 (09:18→20:10)
[2018-08-26] MEDS: LITHIUM CARBONATE 600 MG CAPSULE PO SCH ×2 (09:18→16:57)
[2018-08-26 16:00] VITALS: BP 131/78
[2018-08-26] MEDS: ZOLPIDEM TARTRATE 10 MG TABLET PO PRN (20:10)
[2018-08-26] MEDS: OLANZapine 10 MG TABLET PO SCH (20:10)
[2018-08-27 05:49] VITALS: BP 124/80
[2018-08-27] MEDS: LORazepam 2 MG TABLET PO PRN (06:28)
[2018-08-27] MEDS: LEVOTHYROXINE SODIUM 75 MCG TABLET PO SCH (06:28)
[2018-08-27 08:01] VITALS: BP 114/63
[2018-08-27] MEDS: GABAPENTIN 300 MG CAPSULE PO SCH ×3 (08:05→20:03)
[2018-08-27] MEDS: MULTIVITAMINS WITH MINERALS, THERAPEUTIC TABLET PO SCH (08:05)
[2018-08-27] MEDS: OLANZapine 5 MG TABLET PO SCH (08:05)
[2018-08-27] MEDS: AmLODIPine BESYLATE 5 MG TABLET PO SCH (08:05)
[2018-08-27] MEDS: ESCITALOPRAM OXALATE 10 MG TABLET PO SCH (08:05)
[2018-08-27] MEDS: LITHIUM CARBONATE 600 MG CAPSULE PO SCH ×2 (08:05→16:06)
[2018-08-27] MEDS ORDERED: LEVO25TA9 PO (08:28)
[2018-08-27] MEDS ORDERED: LITH600 PO (08:29)
[2018-08-27] MEDS ORDERED: OLAN5TAB2 PO (08:31)
[2018-08-27] MEDS ORDERED: GABA-531 PO (08:31)
[2018-08-27] MEDS ORDERED: LEVO75 PO (11:41)
[2018-08-27 16:00] VITALS: BP 127/63
[2018-08-27] MEDS: OLANZapine 10 MG TABLET PO SCH (20:03)
[2018-08-28] MEDS: LEVOTHYROXINE SODIUM 75 MCG TABLET PO SCH (06:26)
[2018-08-28 06:32] VITALS: BP 122/65
[2018-08-28] MEDS: MULTIVITAMINS WITH MINERALS, THERAPEUTIC TABLET PO SCH (08:10)
[2018-08-28] MEDS: LITHIUM CARBONATE 600 MG CAPSULE PO SCH ×2 (08:10→16:43)
[2018-08-28] MEDS: GABAPENTIN 300 MG CAPSULE PO SCH ×3 (08:10→20:23)
[2018-08-28] MEDS: AmLODIPine BESYLATE 5 MG TABLET PO SCH (08:10)
[2018-08-28] MEDS: ESCITALOPRAM OXALATE 10 MG TABLET PO SCH (08:10)
[2018-08-28] MEDS: OLANZapine 5 MG TABLET PO SCH (08:10)
[2018-08-28 08:25] VITALS: BP 104/61
[2018-08-28] MEDS: HydrOXYzine PAMOATE 50 MG CAPSULE PO PRN ×2 (12:45→20:23)
[2018-08-28 16:30] VITALS: BP 126/68
[2018-08-28] MEDS: ZOLPIDEM TARTRATE 10 MG TABLET PO PRN (20:23)
[2018-08-28] MEDS: OLANZapine 10 MG TABLET PO SCH (20:23)
[2018-08-29] MEDS: LEVOTHYROXINE SODIUM 75 MCG TABLET PO SCH (06:36)
[2018-08-29 08:01] VITALS: BP 110/67
[2018-08-29] MEDS: OLANZapine 5 MG TABLET PO SCH (08:05)
[2018-08-29] MEDS: LITHIUM CARBONATE 600 MG CAPSULE PO SCH ×2 (08:05→16:26)
[2018-08-29] MEDS: MULTIVITAMINS WITH MINERALS, THERAPEUTIC TABLET PO SCH (08:05)
[2018-08-29] MEDS: GABAPENTIN 300 MG CAPSULE PO SCH ×3 (08:05→20:39)
[2018-08-29] MEDS: ESCITALOPRAM OXALATE 10 MG TABLET PO SCH (08:06)
[2018-08-29] MEDS: AmLODIPine BESYLATE 5 MG TABLET PO SCH (08:06)
[2018-08-29] MEDS ORDERED: DENTURE ADHESIVE 68 GM CREAM DT PRN (09:00)
[2018-08-29] MEDS: HydrOXYzine PAMOATE 50 MG CAPSULE PO PRN ×3 (12:06→20:39)
[2018-08-29 16:00] VITALS: BP 134/88
[2018-08-29] MEDS: ZOLPIDEM TARTRATE 10 MG TABLET PO PRN (20:39)
[2018-08-29] MEDS: OLANZapine 10 MG TABLET PO SCH (20:39)
[2018-08-30] MEDS: LEVOTHYROXINE SODIUM 75 MCG TABLET PO SCH (06:12)
[2018-08-30 07:04] VITALS: BP 130/83
[2018-08-30 08:01] VITALS: BP 138/82
[2018-08-30] MEDS: ESCITALOPRAM OXALATE 10 MG TABLET PO SCH (08:17)
[2018-08-30] MEDS: AmLODIPine BESYLATE 5 MG TABLET PO SCH (08:18)
[2018-08-30] MEDS: LITHIUM CARBONATE 600 MG CAPSULE PO SCH ×2 (08:18→17:07)
[2018-08-30] MEDS: OLANZapine 5 MG TABLET PO SCH (08:18)
[2018-08-30] MEDS: GABAPENTIN 300 MG CAPSULE PO SCH ×2 (08:18→17:07)
[2018-08-30] MEDS: MULTIVITAMINS WITH MINERALS, THERAPEUTIC TABLET PO SCH (08:18)
[2018-08-30] MEDS: HydrOXYzine PAMOATE 50 MG CAPSULE PO PRN (12:41)
[2018-08-30] MEDS ORDERED: LEVO50TA11 PO (16:24)
[2018-08-30] MEDS ORDERED: AMLO-511 PO (16:24)
[2018-08-30] MEDS ORDERED: GABA-531 PO (16:29)
== END 2018-08-30 17:40 | disposition home or self-care (01) | DRG 750 ==
LOC: EMS 13:26 → UNDOADMIN 17:40 → B3A 17:40 → B2S 17:40 → B3A 08-02 00:51
DX: F25.1 Schizoaffective disorder, depressive type (principal); F15.20 Other stimulant dependence, uncomplicated; R45.851 Suicidal ideations; F17.200 Nicotine dependence, unspecified, uncomplicated; E78.5 Hyperlipidemia, unspecified; E03.9 Hypothyroidism, unspecified; R45.850 Homicidal ideations; J44.9 Chronic obstructive pulmonary disease, unspecified; I10 Essential (primary) hypertension; G62.9 Polyneuropathy, unspecified; G47.00 Insomnia, unspecified; F41.9 Anxiety disorder, unspecified; Z79.899 Other long term (current) drug therapy; Z91.5 Personal history of self-harm; Z59.0 Homelessness; Z71.6 Tobacco abuse counseling; Z71.51 Drug abuse counseling and surveillance of drug abuser
CPT/HCPCS: 83036; 84439; 84443; 87081; G0480

== ENCOUNTER 2019-01-29 10:21 | Inpatient (IN) | payer MEDICAID, OTHER ==
[~2019-01-29] VITALS: Ht 180.3 cm; Wt 94.1 kg
[~2019-01-29 10:21] MED LIST changes: -ESCI10TA54 PO; +ESCI20TA PO; +GABA-531 PO; +LEVO75 PO; -LITH300C3 PO; +LITH600 PO; +OLAN5TAB2 PO
[2019-01-29] MEDS ORDERED: PROP20TA7 PO (11:00)
[2019-01-29] MEDS ORDERED: ZOLP10TA2 PO (11:00)
[2019-01-29] MEDS ORDERED: OLAN20TA2 PO (11:00)
[2019-01-29 11:24] LABS: BASOPHILS % (AUTO) 0.5 % (0.0-2.0); EOSINOPHILS % (AUTO) 1.2 % (1.0-6.0); HEMATOCRIT 39.8 % (41-53); HEMOGLOBIN 13.2 g/dL (13.5-17.5); LYMPHOCYTES # (AUTO) 1.4 K/uL (1.0-4.8); LYMPHOCYTES % (AUTO) 23.3 % (22.0-44.0); MEAN CORPUSCULAR HEMOGLOBIN 29.3 pg (26.0-34.0); MEAN CORPUSCULAR HGB CONC 33.2 G/dL (31.0-37.0); MEAN CORPUSCULAR VOLUME 88 fL (80-100); MONOCYTES # (AUTO) 0.4 K/uL (0.1-1.0); MONOCYTES % (AUTO) 6.8 % (2.0-9.0); NEUTROPHILS % (AUTO) 68.2 % (40.0-70.0); PLATELET COUNT (AUTO) 278 K/uL (150-450); RED CELL DISTRIBUTION WIDTH 15.3 % (11.5-14.5)
[2019-01-29 11:33] LABS: ANION GAP 8 mmol/L (8-16); CALCIUM, TOTAL 9.1 mg/dL (8.8-10.5); CARBON DIOXIDE 27 mmol/L (22-29); CHLORIDE 104 mmol/L (98-107); CREATININE 0.95 mg/dL (0.60-1.30); GLOMERULAR FILTR. RATE CALC > 60 mL/min (>60); GLUCOSE,RANDOM 87 mg/dL (70-110); POTASSIUM 3.8 mmol/L (3.5-5.1); SODIUM SERUM 139 mmol/L (136-145); UREA NITROGEN, BLOOD 15 mg/dL (7-18)
[2019-01-29 11:39] LABS: ALANINE AMINOTRANSFERASE 24 U/L (12-78); ALBUMIN 3.5 g/dL (3.4-5.0); ALKALINE PHOSPHATASE 54 U/L (46-116); ASPARTATE AMINOTRANSFERASE 13 U/L (15-37); BILIRUBIN,TOTAL 0.5 mg/dL (0.1-1.0); TOTAL PROTEIN, SERUM 6.9 g/dL (6.4-8.2)
[2019-01-29 12:15] LABS: AMPHET/METH SCREEN,URINE POSITIVE (NEGATIVE); BARBITURATE SCREEN, URINE NEGATIVE (NEGATIVE); BENZODIAZEPINES SCREEN,URINE NEGATIVE (NEGATIVE); CANNABINOID SCREEN,URINE NEGATIVE (NEGATIVE); COCAINE SCREEN,URINE NEGATIVE (NEGATIVE); METHADONE SCREEN, URINE NEGATIVE (NEGATIVE); OPIATE SCREEN,URINE NEGATIVE (NEGATIVE)
[2019-01-29] MEDS ORDERED: OLANZapine 5 MG RAPDIS TABLET PO PRN (12:15)
[2019-01-29 12:17] LABS: PHENCYCLIDINE SCREEN,URINE NEGATIVE (NEGATIVE)
[2019-01-29] MEDS ORDERED: IBUPROFEN 400 MG TABLET PO PRN (12:30)
[2019-01-29] MEDS ORDERED: ACETAMINOPHEN 325 MG TABLET PO PRN ×2 (12:30→16:45)
[2019-01-29] MEDS: LORazepam 2 MG TABLET PO PRN ×2 (13:43→21:39)
[2019-01-29] MEDS ORDERED: CloNIDine HCL 0.1 MG TABLET PO PRN (16:45)
[2019-01-29] MEDS ORDERED: PROP40TA7 PO (16:45)
[2019-01-29] MEDS ORDERED: LOPERAMIDE HCL 2 MG CAPSULE PO PRN (16:45)
[2019-01-29] MEDS ORDERED: ALBUTEROL SULFATE HFA 90 MCG/PUFF 8 GM INHALER IH PRN (16:45)
[2019-01-29] MEDS ORDERED: DOCUSATE SODIUM 100 MG CAPSULE PO PRN (16:45)
[2019-01-29] MEDS ORDERED: NICOTINE 14 MG/24 HOUR PATCH TD PRN (16:45)
[2019-01-29] MEDS ORDERED: MAGNESIUM HYDROXIDE SUSPENSION 30 ML UDCUP PO PRN (16:45)
[2019-01-29] MEDS ORDERED: GuaiFENesin/D-METHORPHAN [SUGAR-FREE] 200-20MG/10 ML SYRUP UDCUP PO PRN (16:45)
[2019-01-29] MEDS ORDERED: MAG HYDROX/AL HYDROX/SIMETH ES 30 ML SUSPENSION UDCUP PO PRN (16:45)
[2019-01-29] MEDS ORDERED: PETROLATUM,WHITE 28 GM JELLY TP PRN (16:45)
[2019-01-29] MEDS ORDERED: ONDANSETRON HCL 4 MG TABLET PO PRN (16:45)
[2019-01-29] MEDS: PROPRANOLOL HCL 40 MG TABLET PO SCH (17:00)
[2019-01-29 19:24] VITALS: BP 141/90
[2019-01-29] MEDS: OLANZapine 10 MG TABLET PO SCH (21:39)
[2019-01-30] MEDS ORDERED: -PHARMACY VACCINE NOTE- MISC ONE (00:45)
[2019-01-30 06:32] VITALS: BP 145/92
[2019-01-30] MEDS: LEVOTHYROXINE SODIUM 75 MCG TABLET PO SCH (06:43)
[2019-01-30 08:02] LABS: BASOPHILS % (AUTO) 0.4 % (0.0-2.0); EOSINOPHILS % (AUTO) 1.3 % (1.0-6.0); HEMATOCRIT 41.1 % (41-53); HEMOGLOBIN 13.8 g/dL (13.5-17.5); LYMPHOCYTES # (AUTO) 1.7 K/uL (1.0-4.8); LYMPHOCYTES % (AUTO) 22.1 % (22.0-44.0); MEAN CORPUSCULAR HEMOGLOBIN 29.2 pg (26.0-34.0); MEAN CORPUSCULAR HGB CONC 33.7 G/dL (31.0-37.0); MEAN CORPUSCULAR VOLUME 87 fL (80-100); MONOCYTES # (AUTO) 0.5 K/uL (0.1-1.0); MONOCYTES % (AUTO) 6.3 % (2.0-9.0); NEUTROPHILS # (AUTO) 5.4 K/uL (1.8-7.7); NEUTROPHILS % (AUTO) 69.9 % (40.0-70.0); PLATELET COUNT (AUTO) 306 K/uL (150-450); RED BLOOD CELL COUNT(AUTO) 4.73 MIL/uL (4.50-5.90)
[2019-01-30] MEDS: LITHIUM CARBONATE 600 MG CAPSULE PO SCH ×2 (08:20→16:47)
[2019-01-30] MEDS: GABAPENTIN 300 MG CAPSULE PO SCH ×2 (08:20→16:47)
[2019-01-30] MEDS: AmLODIPine BESYLATE 5 MG TABLET PO SCH (08:20)
[2019-01-30] MEDS: ESCITALOPRAM OXALATE 20 MG TABLET PO SCH (08:20)
[2019-01-30] MEDS: PROPRANOLOL HCL 40 MG TABLET PO SCH ×2 (08:20→16:47)
[2019-01-30] MEDS: LORazepam 2 MG TABLET PO PRN ×3 (08:20→20:45)
[2019-01-30 08:33] LABS: HEMOGLOBIN A1C 6.1 % (4.5-6.2)
[2019-01-30 08:37] LABS: ALANINE AMINOTRANSFERASE 20 U/L (12-78); ALBUMIN 3.5 g/dL (3.4-5.0); ALKALINE PHOSPHATASE 59 U/L (46-116); ANION GAP 9 mmol/L (8-16); ASPARTATE AMINOTRANSFERASE 12 U/L (15-37); BILIRUBIN,TOTAL 0.3 mg/dL (0.1-1.0); CALCIUM, TOTAL 8.9 mg/dL (8.8-10.5); CARBON DIOXIDE 27 mmol/L (22-29); CHLORIDE 106 mmol/L (98-107); CHOL/HDL RATIO 6.4 (4.2-7.3); CHOLESTEROL 255 mg/dL (131-200); CREATININE 1.06 mg/dL (0.60-1.30); GLOMERULAR FILTR. RATE CALC > 60 mL/min (>60); GLUCOSE,RANDOM 84 mg/dL (70-110); HDL CHOLESTEROL 40 mg/dL (40-60); LDL CHOL (CALC.) 190 mg/dL (0-130); SODIUM SERUM 142 mmol/L (136-145); THYROID STIMULATING HORMONE 4.11 uIU/mL (0.36-3.74); TOTAL PROTEIN, SERUM 6.6 g/dL (6.4-8.2); TRIGLYCERIDES 126 mg/dL (15-150); UREA NITROGEN, BLOOD 15 mg/dL (7-18)
[2019-01-30 08:53] VITALS: BP 121/76
[2019-01-30 16:14] VITALS: BP 145/82
[2019-01-30] MEDS: OLANZapine 10 MG TABLET PO SCH (20:45)
[2019-01-31] MEDS: LEVOTHYROXINE SODIUM 75 MCG TABLET PO SCH (05:40)
[2019-01-31 06:24] VITALS: BP 137/85
[2019-01-31 08:20] VITALS: BP 154/94
[2019-01-31] MEDS: LITHIUM CARBONATE 600 MG CAPSULE PO SCH ×2 (08:22→16:08)
[2019-01-31] MEDS: AmLODIPine BESYLATE 5 MG TABLET PO SCH (08:22)
[2019-01-31] MEDS: ESCITALOPRAM OXALATE 20 MG TABLET PO SCH (08:22)
[2019-01-31] MEDS: GABAPENTIN 300 MG CAPSULE PO SCH ×2 (08:22→16:08)
[2019-01-31] MEDS: PROPRANOLOL HCL 40 MG TABLET PO SCH ×2 (08:23→16:08)
[2019-01-31] MEDS: LORazepam 2 MG TABLET PO PRN ×3 (09:11→20:39)
[2019-01-31 16:07] VITALS: BP 144/80
[2019-01-31] MEDS: OLANZapine 10 MG TABLET PO SCH (20:39)
[2019-02-01 02:27] VITALS: BP 133/75
[2019-02-01] MEDS: IBUPROFEN 400 MG TABLET PO PRN ×2 (02:55→18:37)
[2019-02-01] MEDS: LEVOTHYROXINE SODIUM 75 MCG TABLET PO SCH (06:18)
[2019-02-01] MEDS: LORazepam 2 MG TABLET PO PRN ×2 (06:18→16:37)
[2019-02-01 08:16] VITALS: BP 128/89
[2019-02-01] MEDS: LITHIUM CARBONATE 600 MG CAPSULE PO SCH ×2 (08:35→16:37)
[2019-02-01] MEDS: GABAPENTIN 300 MG CAPSULE PO SCH ×2 (08:35→16:37)
[2019-02-01] MEDS: ESCITALOPRAM OXALATE 20 MG TABLET PO SCH (08:35)
[2019-02-01] MEDS: PROPRANOLOL HCL 40 MG TABLET PO SCH ×2 (08:35→16:37)
[2019-02-01] MEDS: AmLODIPine BESYLATE 5 MG TABLET PO SCH (08:35)
[2019-02-01 16:05] VITALS: BP 126/75
[2019-02-01] MEDS: OLANZapine 10 MG TABLET PO SCH (20:51)
[2019-02-02 03:12] VITALS: BP 119/73
[2019-02-02] MEDS: LEVOTHYROXINE SODIUM 100 MCG TABLET PO SCH (06:18)
[2019-02-02] MEDS: LORazepam 2 MG TABLET PO PRN ×2 (06:19→13:44)
[2019-02-02 08:19] VITALS: BP 141/87
[2019-02-02] MEDS: AmLODIPine BESYLATE 5 MG TABLET PO SCH (08:38)
[2019-02-02] MEDS: ESCITALOPRAM OXALATE 20 MG TABLET PO SCH (08:38)
[2019-02-02] MEDS: LITHIUM CARBONATE 600 MG CAPSULE PO SCH ×2 (08:38→16:13)
[2019-02-02] MEDS: GABAPENTIN 300 MG CAPSULE PO SCH ×2 (08:38→16:13)
[2019-02-02] MEDS: PROPRANOLOL HCL 40 MG TABLET PO SCH ×2 (08:38→16:13)
[2019-02-02] MEDS: BuPROPion HCL XL 150 MG ER TABLET PO SCH (13:44)
[2019-02-02 16:17] VITALS: BP 135/85
[2019-02-02] MEDS: OLANZapine 10 MG TABLET PO SCH (20:41)
[2019-02-03 00:23] VITALS: BP 115/75
[2019-02-03] MEDS: LORazepam 2 MG TABLET PO PRN ×3 (00:24→16:39)
[2019-02-03] MEDS: ZOLPIDEM TARTRATE 10 MG TABLET PO PRN ×2 (00:24→20:16)
[2019-02-03] MEDS: LEVOTHYROXINE SODIUM 100 MCG TABLET PO SCH (06:30)
[2019-02-03 08:25] VITALS: BP 113/69
[2019-02-03] MEDS: ESCITALOPRAM OXALATE 20 MG TABLET PO SCH (08:44)
[2019-02-03] MEDS: BuPROPion HCL XL 150 MG ER TABLET PO SCH (08:44)
[2019-02-03] MEDS: GABAPENTIN 300 MG CAPSULE PO SCH ×2 (08:44→16:25)
[2019-02-03] MEDS: PROPRANOLOL HCL 40 MG TABLET PO SCH ×2 (08:45→16:25)
[2019-02-03] MEDS: LITHIUM CARBONATE 600 MG CAPSULE PO SCH ×2 (08:45→16:25)
[2019-02-03] MEDS: AmLODIPine BESYLATE 5 MG TABLET PO SCH (08:45)
[2019-02-03] MEDS: IBUPROFEN 400 MG TABLET PO PRN (08:56)
[2019-02-03 16:12] VITALS: BP 113/72
[2019-02-03] MEDS: OLANZapine 10 MG TABLET PO SCH (20:16)
[2019-02-04 05:54] VITALS: BP 118/76
[2019-02-04] MEDS: LORazepam 2 MG TABLET PO PRN ×3 (06:23→20:51)
[2019-02-04] MEDS: LEVOTHYROXINE SODIUM 100 MCG TABLET PO SCH (06:23)
[2019-02-04 08:14] VITALS: BP 122/62
[2019-02-04] MEDS: BuPROPion HCL XL 150 MG ER TABLET PO SCH (09:22)
[2019-02-04] MEDS: LITHIUM CARBONATE 600 MG CAPSULE PO SCH ×2 (09:22→16:13)
[2019-02-04] MEDS: GABAPENTIN 300 MG CAPSULE PO SCH ×2 (09:23→16:13)
[2019-02-04] MEDS: PROPRANOLOL HCL 40 MG TABLET PO SCH ×2 (09:23→16:13)
[2019-02-04] MEDS: ESCITALOPRAM OXALATE 20 MG TABLET PO SCH (09:23)
[2019-02-04] MEDS: AmLODIPine BESYLATE 5 MG TABLET PO SCH (09:23)
[2019-02-04 16:00] VITALS: BP 120/71
[2019-02-04] MEDS: OLANZapine 10 MG TABLET PO SCH (20:51)
[2019-02-05] MEDS: LORazepam 2 MG TABLET PO PRN ×2 (06:08→13:05)
[2019-02-05] MEDS: LEVOTHYROXINE SODIUM 100 MCG TABLET PO SCH (06:08)
[2019-02-05 06:09] VITALS: BP 111/66
[2019-02-05 08:33] VITALS: BP 112/66
[2019-02-05] MEDS: BuPROPion HCL XL 150 MG ER TABLET PO SCH (09:30)
[2019-02-05] MEDS: PROPRANOLOL HCL 40 MG TABLET PO SCH ×2 (09:31→16:49)
[2019-02-05] MEDS: GABAPENTIN 300 MG CAPSULE PO SCH ×2 (09:31→16:49)
[2019-02-05] MEDS: LITHIUM CARBONATE 600 MG CAPSULE PO SCH ×2 (09:31→16:48)
[2019-02-05] MEDS: ESCITALOPRAM OXALATE 20 MG TABLET PO SCH (09:31)
[2019-02-05] MEDS: AmLODIPine BESYLATE 5 MG TABLET PO SCH (09:31)
[2019-02-05] MEDS: IBUPROFEN 400 MG TABLET PO PRN (13:40)
[2019-02-05 13:41] VITALS: BP 112/69
[2019-02-05 16:00] VITALS: BP 105/65
[2019-02-05] MEDS: OLANZapine 10 MG TABLET PO SCH (20:55)
[2019-02-06 01:13] VITALS: BP 118/60
[2019-02-06] MEDS: LEVOTHYROXINE SODIUM 100 MCG TABLET PO SCH (06:37)
[2019-02-06 08:09] VITALS: BP 120/85
[2019-02-06] MEDS: PROPRANOLOL HCL 40 MG TABLET PO SCH ×2 (09:14→16:01)
[2019-02-06] MEDS: AmLODIPine BESYLATE 5 MG TABLET PO SCH (09:14)
[2019-02-06] MEDS: ESCITALOPRAM OXALATE 20 MG TABLET PO SCH (09:14)
[2019-02-06] MEDS: GABAPENTIN 300 MG CAPSULE PO SCH ×2 (09:14→16:00)
[2019-02-06] MEDS: BuPROPion HCL XL 150 MG ER TABLET PO SCH (09:14)
[2019-02-06] MEDS: LITHIUM CARBONATE 600 MG CAPSULE PO SCH ×2 (09:15→16:00)
[2019-02-06] MEDS: LORazepam 2 MG TABLET PO PRN ×3 (09:18→17:34)
[2019-02-06] MEDS: IBUPROFEN 400 MG TABLET PO PRN (12:15)
[2019-02-06 16:01] VITALS: BP 121/63
[2019-02-06] MEDS: OLANZapine 10 MG TABLET PO SCH (20:30)
[2019-02-06] MEDS: ZOLPIDEM TARTRATE 10 MG TABLET PO PRN (20:53)
[2019-02-07 01:02] VITALS: BP 100/67
[2019-02-07] MEDS: LORazepam 2 MG TABLET PO PRN ×3 (03:17→17:38)
[2019-02-07] MEDS: LEVOTHYROXINE SODIUM 100 MCG TABLET PO SCH (06:23)
[2019-02-07 08:21] VITALS: BP 121/67
[2019-02-07] MEDS: GABAPENTIN 300 MG CAPSULE PO SCH ×2 (08:57→16:25)
[2019-02-07] MEDS: BuPROPion HCL XL 150 MG ER TABLET PO SCH (08:57)
[2019-02-07] MEDS: LITHIUM CARBONATE 600 MG CAPSULE PO SCH ×2 (08:57→16:25)
[2019-02-07] MEDS: AmLODIPine BESYLATE 5 MG TABLET PO SCH (08:57)
[2019-02-07] MEDS: ESCITALOPRAM OXALATE 20 MG TABLET PO SCH (08:58)
[2019-02-07] MEDS: PROPRANOLOL HCL 40 MG TABLET PO SCH ×2 (09:00→16:25)
[2019-02-07 17:11] VITALS: BP 104/68
[2019-02-07 17:35] VITALS: BP 115/64
[2019-02-07] MEDS: OLANZapine 10 MG TABLET PO SCH (20:11)
[2019-02-07] MEDS: ZOLPIDEM TARTRATE 10 MG TABLET PO PRN (21:09)
[2019-02-08 03:21] VITALS: BP 110/61
[2019-02-08] MEDS: LEVOTHYROXINE SODIUM 100 MCG TABLET PO SCH (06:11)
[2019-02-08] MEDS: LORazepam 2 MG TABLET PO PRN ×3 (06:39→20:30)
[2019-02-08] MEDS: PROPRANOLOL HCL 40 MG TABLET PO SCH ×2 (08:19→16:42)
[2019-02-08] MEDS: LITHIUM CARBONATE 600 MG CAPSULE PO SCH ×2 (08:20→16:42)
[2019-02-08] MEDS: GABAPENTIN 300 MG CAPSULE PO SCH ×2 (08:20→16:42)
[2019-02-08] MEDS: BuPROPion HCL XL 150 MG ER TABLET PO SCH (08:20)
[2019-02-08] MEDS: ESCITALOPRAM OXALATE 20 MG TABLET PO SCH (08:20)
[2019-02-08] MEDS: AmLODIPine BESYLATE 5 MG TABLET PO SCH (08:20)
[2019-02-08 08:38] VITALS: BP 124/64
[2019-02-08 16:23] VITALS: BP 105/68
[2019-02-08] MEDS: OLANZapine 10 MG TABLET PO SCH (20:30)
[2019-02-08] MEDS: ZOLPIDEM TARTRATE 10 MG TABLET PO PRN (20:30)
[2019-02-09 02:03] VITALS: BP 109/63
[2019-02-09] MEDS: LORazepam 2 MG TABLET PO PRN ×2 (06:46→12:35)
[2019-02-09] MEDS: LEVOTHYROXINE SODIUM 100 MCG TABLET PO SCH (06:46)
[2019-02-09 08:02] VITALS: BP 117/64
[2019-02-09] MEDS: ESCITALOPRAM OXALATE 20 MG TABLET PO SCH (09:00)
[2019-02-09] MEDS: PROPRANOLOL HCL 40 MG TABLET PO SCH (09:00)
[2019-02-09] MEDS: GABAPENTIN 300 MG CAPSULE PO SCH (09:00)
[2019-02-09] MEDS: LITHIUM CARBONATE 600 MG CAPSULE PO SCH (09:00)
[2019-02-09] MEDS: AmLODIPine BESYLATE 5 MG TABLET PO SCH (09:00)
[2019-02-09] MEDS: BuPROPion HCL XL 150 MG ER TABLET PO SCH (09:00)
[2019-02-09] MEDS ORDERED: BUPR-93 PO (14:36)
[2019-02-09] MEDS ORDERED: OLAN10TA3 PO (14:38)
== END 2019-02-09 16:32 | disposition home or self-care (01) | DRG 750 ==
LOC: EMS 10:21 → B3A 13:32
PROVIDERS: ADMIT Psychiatry & Neurology Psychiatry; ATTEND Psychiatry & Neurology Psychiatry
DX: F25.0 Schizoaffective disorder, bipolar type (principal); G62.9 Polyneuropathy, unspecified; R45.851 Suicidal ideations; E03.9 Hypothyroidism, unspecified; E78.5 Hyperlipidemia, unspecified; F15.90 Other stimulant use, unspecified, uncomplicated; F17.200 Nicotine dependence, unspecified, uncomplicated; F41.9 Anxiety disorder, unspecified; I10 Essential (primary) hypertension; J44.9 Chronic obstructive pulmonary disease, unspecified; Z59.0 Homelessness; Z79.899 Other long term (current) drug therapy; Z91.5 Personal history of self-harm; Z71.6 Tobacco abuse counseling
CPT/HCPCS: 83036; 84439; 84443; G0480

== ENCOUNTER 2019-02-11 09:27 | Emergency (ER) | payer MEDICAID, OTHER ==
[~2019-02-11] VITALS: Ht 188 cm; Wt 98.0 kg
[~2019-02-11 09:27] MED LIST changes: +BUPR-93 PO; -GABA-531 PO; -OLAN10TA20 PO; +OLAN20TA2 PO; -OLAN5TAB2 PO; +PROP40TA7 PO
[2019-02-11] MEDS ORDERED: GABA-531 PO (09:56)
[2019-02-11 10:22] LABS: AMPHET/METH SCREEN,URINE NEGATIVE (NEGATIVE); BARBITURATE SCREEN, URINE NEGATIVE (NEGATIVE); BENZODIAZEPINES SCREEN,URINE NEGATIVE (NEGATIVE); CANNABINOID SCREEN,URINE NEGATIVE (NEGATIVE); COCAINE SCREEN,URINE NEGATIVE (NEGATIVE); METHADONE SCREEN, URINE NEGATIVE (NEGATIVE); OPIATE SCREEN,URINE NEGATIVE (NEGATIVE); PHENCYCLIDINE SCREEN,URINE NEGATIVE (NEGATIVE)
[2019-02-11 10:22] LABS: BASOPHILS % (AUTO) 0.6 % (0.0-2.0); EOSINOPHILS % (AUTO) 1.9 % (1.0-6.0); HEMATOCRIT 40.1 % (41-53); HEMOGLOBIN 13.4 g/dL (13.5-17.5); LYMPHOCYTES # (AUTO) 1.9 K/uL (1.0-4.8); LYMPHOCYTES % (AUTO) 15.3 % (22.0-44.0); MEAN CORPUSCULAR HEMOGLOBIN 29.6 pg (26.0-34.0); MEAN CORPUSCULAR HGB CONC 33.5 G/dL (31.0-37.0); MEAN CORPUSCULAR VOLUME 89 fL (80-100); MONOCYTES # (AUTO) 1.2 K/uL (0.1-1.0); MONOCYTES % (AUTO) 9.3 % (2.0-9.0); NEUTROPHILS # (AUTO) 9.2 K/uL (1.8-7.7); NEUTROPHILS % (AUTO) 72.9 % (40.0-70.0); PLATELET COUNT (AUTO) 281 K/uL (150-450); RED BLOOD CELL COUNT(AUTO) 4.53 MIL/uL (4.50-5.90); RED CELL DISTRIBUTION WIDTH 14.6 % (11.5-14.5)
[2019-02-11 10:35] LABS: ANION GAP 7 mmol/L (8-16); CALCIUM, TOTAL 9.5 mg/dL (8.8-10.5); CARBON DIOXIDE 30 mmol/L (22-29); CHLORIDE 103 mmol/L (98-107); GLOMERULAR FILTR. RATE CALC 53 mL/min (>60); GLUCOSE,RANDOM 99 mg/dL (70-110); POTASSIUM 3.7 mmol/L (3.5-5.1); SODIUM SERUM 140 mmol/L (136-145); UREA NITROGEN, BLOOD 12 mg/dL (7-18)
[2019-02-11 10:40] LABS: ALANINE AMINOTRANSFERASE 30 U/L (12-78); ALBUMIN 3.7 g/dL (3.4-5.0); ALKALINE PHOSPHATASE 65 U/L (46-116); ASPARTATE AMINOTRANSFERASE 17 U/L (15-37); BILIRUBIN,TOTAL 0.6 mg/dL (0.1-1.0)
[2019-02-11 13:31] VITALS: BP 108/69
== END 2019-02-11 13:38 | disposition home or self-care (01) ==
LOC: EMS 09:30
DX: F25.9 Schizoaffective disorder, unspecified (principal); R45.851 Suicidal ideations; I10 Essential (primary) hypertension; F32.9 Major depressive disorder, single episode, unspecified; F41.9 Anxiety disorder, unspecified; F15.90 Other stimulant use, unspecified, uncomplicated; F17.210 Nicotine dependence, cigarettes, uncomplicated; Z59.0 Homelessness; Z79.899 Other long term (current) drug therapy
CPT/HCPCS: 36415; 80053; 80307; 85025; 99285; 99406; G0480

== ENCOUNTER 2019-02-28 10:08 | Inpatient (IN) | payer MEDICAID, OTHER ==
[~2019-02-28] VITALS: Ht 175.3 cm; Wt 92.1 kg
[~2019-02-28 10:08] MED LIST changes: -AMLO-511 PO; +AMLO5TAB9 PO; +GABA-531 PO; -LITH600 PO
[2019-02-28] MEDS ORDERED: HALOPERIDOL 5 MG TABLET PO ONE (11:15)
[2019-02-28] MEDS ORDERED: LORazepam 2 MG TABLET PO ONE (11:15)
[2019-02-28 11:16] LABS: BASOPHILS % (AUTO) 0.6 % (0.0-2.0); HEMATOCRIT 38.9 % (41-53); HEMOGLOBIN 12.9 g/dL (13.5-17.5); LYMPHOCYTES # (AUTO) 1.5 K/uL (1.0-4.8); LYMPHOCYTES % (AUTO) 23.4 % (22.0-44.0); MEAN CORPUSCULAR HGB CONC 33.2 G/dL (31.0-37.0); MEAN CORPUSCULAR VOLUME 91 fL (80-100); MONOCYTES # (AUTO) 0.5 K/uL (0.1-1.0); MONOCYTES % (AUTO) 7.7 % (2.0-9.0); NEUTROPHILS # (AUTO) 4.2 K/uL (1.8-7.7); NEUTROPHILS % (AUTO) 67.3 % (40.0-70.0); PLATELET COUNT (AUTO) 325 K/uL (150-450); RED BLOOD CELL COUNT(AUTO) 4.29 MIL/uL (4.50-5.90); RED CELL DISTRIBUTION WIDTH 15.1 % (11.5-14.5)
[2019-02-28 11:25] LABS: ANION GAP 9 mmol/L (8-16); CALCIUM, TOTAL 9.1 mg/dL (8.8-10.5); CARBON DIOXIDE 26 mmol/L (22-29); CHLORIDE 105 mmol/L (98-107); CREATININE 1.29 mg/dL (0.60-1.30); GLOMERULAR FILTR. RATE CALC 58 mL/min (>60); GLUCOSE,RANDOM 92 mg/dL (70-110); POTASSIUM 3.3 mmol/L (3.5-5.1); SODIUM SERUM 140 mmol/L (136-145); UREA NITROGEN, BLOOD 12 mg/dL (7-18)
[2019-02-28 11:30] LABS: ALANINE AMINOTRANSFERASE 22 U/L (12-78); ALBUMIN 3.2 g/dL (3.4-5.0); ALKALINE PHOSPHATASE 55 U/L (46-116); ASPARTATE AMINOTRANSFERASE 17 U/L (15-37); BILIRUBIN,TOTAL 0.7 mg/dL (0.1-1.0); TOTAL PROTEIN, SERUM 6.6 g/dL (6.4-8.2)
[2019-02-28 12:05] LABS: AMPHET/METH SCREEN,URINE POSITIVE (NEGATIVE); BARBITURATE SCREEN, URINE NEGATIVE (NEGATIVE); BENZODIAZEPINES SCREEN,URINE NEGATIVE (NEGATIVE); CANNABINOID SCREEN,URINE NEGATIVE (NEGATIVE); COCAINE SCREEN,URINE NEGATIVE (NEGATIVE); METHADONE SCREEN, URINE NEGATIVE (NEGATIVE); OPIATE SCREEN,URINE NEGATIVE (NEGATIVE)
[2019-02-28 12:06] LABS: PHENCYCLIDINE SCREEN,URINE NEGATIVE (NEGATIVE)
[2019-02-28] MEDS ORDERED: OLANZapine 5 MG RAPDIS TABLET PO PRN (18:00)
[2019-02-28] MEDS: GABAPENTIN 300 MG CAPSULE PO SCH (19:21)
[2019-02-28] MEDS: LITHIUM CARBONATE 600 MG CAPSULE PO SCH (19:21)
[2019-02-28] MEDS ORDERED: ONDANSETRON HCL 4 MG TABLET PO PRN (20:30)
[2019-02-28] MEDS ORDERED: ALBUTEROL SULFATE HFA 90 MCG/PUFF 8 GM INHALER IH PRN (20:30)
[2019-02-28] MEDS ORDERED: NICOTINE 14 MG/24 HOUR PATCH TD PRN (20:30)
[2019-02-28] MEDS ORDERED: PETROLATUM,WHITE 28 GM JELLY TP PRN (20:30)
[2019-02-28] MEDS ORDERED: DOCUSATE SODIUM 100 MG CAPSULE PO PRN (20:30)
[2019-02-28] MEDS ORDERED: MAG HYDROX/AL HYDROX/SIMETH ES 30 ML SUSPENSION UDCUP PO PRN (20:30)
[2019-02-28] MEDS ORDERED: MAGNESIUM HYDROXIDE SUSPENSION 30 ML UDCUP PO PRN (20:30)
[2019-02-28] MEDS ORDERED: GuaiFENesin/D-METHORPHAN [SUGAR-FREE] 200-20MG/10 ML SYRUP UDCUP PO PRN (20:30)
[2019-02-28] MEDS ORDERED: LOPERAMIDE HCL 2 MG CAPSULE PO PRN (20:30)
[2019-02-28] MEDS ORDERED: CloNIDine HCL 0.1 MG TABLET PO PRN (20:30)
[2019-02-28] MEDS ORDERED: IBUPROFEN 400 MG TABLET PO PRN (20:30)
[2019-02-28] MEDS ORDERED: ACETAMINOPHEN 325 MG TABLET PO PRN (20:30)
[2019-02-28] MEDS: OLANZapine 10 MG TABLET PO SCH (21:00)
[2019-03-01] MEDS: LEVOTHYROXINE SODIUM 100 MCG TABLET PO SCH (06:45)
[2019-03-01 07:42] LABS: CHOL/HDL RATIO 6.9 (4.2-7.3)
[2019-03-01] MEDS: BuPROPion HCL XL 150 MG ER TABLET PO SCH (09:26)
[2019-03-01] MEDS: LITHIUM CARBONATE 600 MG CAPSULE PO SCH ×2 (09:26→16:45)
[2019-03-01] MEDS: ESCITALOPRAM OXALATE 20 MG TABLET PO SCH (09:26)
[2019-03-01] MEDS: AmLODIPine BESYLATE 5 MG TABLET PO SCH (09:26)
[2019-03-01] MEDS: GABAPENTIN 300 MG CAPSULE PO SCH ×2 (09:26→16:44)
[2019-03-01] MEDS: PROPRANOLOL HCL 40 MG TABLET PO SCH ×2 (09:26→16:45)
[2019-03-01 10:07] VITALS: BP 135/82
[2019-03-01] MEDS ORDERED: LEVO100 PO (11:00)
[2019-03-01] MEDS ORDERED: POTASSIUM CHLORIDE 20 MEQ ER TABLET PO ONE (11:00)
[2019-03-01 16:42] VITALS: BP 138/82
[2019-03-01] MEDS: OLANZapine 10 MG TABLET PO SCH (20:07)
[2019-03-02] MEDS: LEVOTHYROXINE SODIUM 100 MCG TABLET PO SCH (06:56)
[2019-03-02 08:00] VITALS: BP 156/73
[2019-03-02] MEDS: GABAPENTIN 300 MG CAPSULE PO SCH ×2 (08:11→16:49)
[2019-03-02] MEDS: BuPROPion HCL XL 150 MG ER TABLET PO SCH (08:11)
[2019-03-02] MEDS: ESCITALOPRAM OXALATE 20 MG TABLET PO SCH (08:11)
[2019-03-02] MEDS: LITHIUM CARBONATE 600 MG CAPSULE PO SCH ×2 (08:11→16:48)
[2019-03-02] MEDS: PROPRANOLOL HCL 40 MG TABLET PO SCH ×2 (08:11→16:49)
[2019-03-02] MEDS: AmLODIPine BESYLATE 5 MG TABLET PO SCH (08:11)
[2019-03-02 17:08] VITALS: BP 147/72
[2019-03-02] MEDS: OLANZapine 10 MG TABLET PO SCH (20:03)
[2019-03-03] MEDS: LEVOTHYROXINE SODIUM 100 MCG TABLET PO SCH (06:55)
[2019-03-03] MEDS: PROPRANOLOL HCL 40 MG TABLET PO SCH ×2 (09:09→16:26)
[2019-03-03] MEDS: BuPROPion HCL XL 150 MG ER TABLET PO SCH (09:09)
[2019-03-03] MEDS: AmLODIPine BESYLATE 5 MG TABLET PO SCH (09:09)
[2019-03-03] MEDS: GABAPENTIN 300 MG CAPSULE PO SCH ×2 (09:09→16:27)
[2019-03-03] MEDS: ESCITALOPRAM OXALATE 20 MG TABLET PO SCH (09:09)
[2019-03-03] MEDS: LITHIUM CARBONATE 600 MG CAPSULE PO SCH ×2 (09:09→16:27)
[2019-03-03 10:02] VITALS: BP 135/75
[2019-03-03] MEDS: LORazepam 2 MG TABLET PO PRN (16:59)
[2019-03-03 17:11] VITALS: BP 120/79
[2019-03-03] MEDS: OLANZapine 10 MG TABLET PO SCH (20:10)
[2019-03-04] MEDS: LEVOTHYROXINE SODIUM 100 MCG TABLET PO SCH (06:56)
[2019-03-04] MEDS: AmLODIPine BESYLATE 5 MG TABLET PO SCH (08:48)
[2019-03-04] MEDS: ESCITALOPRAM OXALATE 20 MG TABLET PO SCH (08:48)
[2019-03-04] MEDS: LORazepam 2 MG TABLET PO PRN ×3 (08:48→18:18)
[2019-03-04] MEDS: GABAPENTIN 300 MG CAPSULE PO SCH ×2 (08:48→16:49)
[2019-03-04] MEDS: BuPROPion HCL XL 150 MG ER TABLET PO SCH (08:48)
[2019-03-04] MEDS: LITHIUM CARBONATE 600 MG CAPSULE PO SCH (08:48)
[2019-03-04] MEDS: PROPRANOLOL HCL 40 MG TABLET PO SCH ×2 (08:48→16:49)
[2019-03-04 09:18] VITALS: BP 132/86
[2019-03-04] MEDS: LITHIUM CARBONATE 300 MG CAPSULE PO SCH (16:49)
[2019-03-04 17:29] VITALS: BP 117/79
[2019-03-04] MEDS: OLANZapine 10 MG TABLET PO SCH (20:34)
[2019-03-05] MEDS: LEVOTHYROXINE SODIUM 100 MCG TABLET PO SCH (06:28)
[2019-03-05] MEDS: LORazepam 2 MG TABLET PO PRN ×3 (09:00→18:26)
[2019-03-05] MEDS: LITHIUM CARBONATE 300 MG CAPSULE PO SCH ×2 (09:22→16:13)
[2019-03-05] MEDS: PROPRANOLOL HCL 40 MG TABLET PO SCH ×2 (09:23→17:31)
[2019-03-05] MEDS: ESCITALOPRAM OXALATE 20 MG TABLET PO SCH (09:23)
[2019-03-05] MEDS: GABAPENTIN 300 MG CAPSULE PO SCH ×2 (09:23→16:13)
[2019-03-05] MEDS: BuPROPion HCL XL 150 MG ER TABLET PO SCH (09:23)
[2019-03-05] MEDS: AmLODIPine BESYLATE 5 MG TABLET PO SCH (09:23)
[2019-03-05 09:58] VITALS: BP 121/80
[2019-03-05 16:30] VITALS: BP 118/72
[2019-03-05] MEDS: OLANZapine 10 MG TABLET PO SCH (20:18)
[2019-03-05] MEDS: ZOLPIDEM TARTRATE 10 MG TABLET PO PRN (20:18)
[2019-03-06] MEDS: LEVOTHYROXINE SODIUM 100 MCG TABLET PO SCH (06:36)
[2019-03-06 07:07] LABS: LITHIUM 1.52 mmol/L (0.60-1.20)
[2019-03-06 08:00] LABS: BASOPHILS % (AUTO) 0.5 % (0.0-2.0); EOSINOPHILS % (AUTO) 1.7 % (1.0-6.0); HEMATOCRIT 43.4 % (41-53); HEMOGLOBIN 14.1 g/dL (13.5-17.5); LYMPHOCYTES % (AUTO) 27.5 % (22.0-44.0); MEAN CORPUSCULAR HEMOGLOBIN 29.6 pg (26.0-34.0); MEAN CORPUSCULAR HGB CONC 32.6 G/dL (31.0-37.0); MEAN CORPUSCULAR VOLUME 91 fL (80-100); MONOCYTES # (AUTO) 0.6 K/uL (0.1-1.0); MONOCYTES % (AUTO) 8.2 % (2.0-9.0); NEUTROPHILS # (AUTO) 4.6 K/uL (1.8-7.7); NEUTROPHILS % (AUTO) 62.1 % (40.0-70.0); PLATELET COUNT (AUTO) 278 K/uL (150-450); RED BLOOD CELL COUNT(AUTO) 4.78 MIL/uL (4.50-5.90); RED CELL DISTRIBUTION WIDTH 14.7 % (11.5-14.5)
[2019-03-06 08:19] LABS: ALBUMIN 3.6 g/dL (3.4-5.0); BILIRUBIN,TOTAL 0.4 mg/dL (0.1-1.0); CALCIUM, TOTAL 9.8 mg/dL (8.8-10.5); CREATININE 1.46 mg/dL (0.60-1.30); POTASSIUM 4.5 mmol/L (3.5-5.1); TOTAL PROTEIN, SERUM 6.6 g/dL (6.4-8.2)
[2019-03-06] MEDS: AmLODIPine BESYLATE 5 MG TABLET PO SCH (08:31)
[2019-03-06] MEDS: ESCITALOPRAM OXALATE 20 MG TABLET PO SCH (08:31)
[2019-03-06] MEDS: PROPRANOLOL HCL 40 MG TABLET PO SCH ×2 (08:31→17:22)
[2019-03-06] MEDS: BuPROPion HCL XL 150 MG ER TABLET PO SCH (08:31)
[2019-03-06] MEDS: GABAPENTIN 300 MG CAPSULE PO SCH (08:31)
[2019-03-06] MEDS: LORazepam 2 MG TABLET PO PRN ×2 (09:26→15:17)
[2019-03-06 10:04] VITALS: BP 108/75
[2019-03-06 16:30] VITALS: BP 104/67
[2019-03-06] MEDS: OLANZapine 10 MG TABLET PO SCH (22:14)
[2019-03-07] MEDS: LEVOTHYROXINE SODIUM 100 MCG TABLET PO SCH (06:33)
[2019-03-07] MEDS: LORazepam 2 MG TABLET PO PRN ×4 (08:12→21:10)
[2019-03-07] MEDS: ESCITALOPRAM OXALATE 20 MG TABLET PO SCH (08:12)
[2019-03-07] MEDS: AmLODIPine BESYLATE 5 MG TABLET PO SCH (08:12)
[2019-03-07] MEDS: BuPROPion HCL XL 150 MG ER TABLET PO SCH (08:12)
[2019-03-07] MEDS: PROPRANOLOL HCL 40 MG TABLET PO SCH ×2 (08:12→17:06)
[2019-03-07 08:45] VITALS: BP 115/68
[2019-03-07 17:04] VITALS: BP 119/75
[2019-03-07] MEDS: OLANZapine 10 MG TABLET PO SCH (20:19)
[2019-03-07] MEDS: ZOLPIDEM TARTRATE 10 MG TABLET PO PRN (20:20)
[2019-03-07 21:29] LABS: LITHIUM 0.77 mmol/L (0.60-1.20)
[2019-03-07 21:33] LABS: ALBUMIN 3.4 g/dL (3.4-5.0); BILIRUBIN,TOTAL 0.3 mg/dL (0.1-1.0); CALCIUM, TOTAL 9.6 mg/dL (8.8-10.5); CREATININE 1.81 mg/dL (0.60-1.30); POTASSIUM 4.5 mmol/L (3.5-5.1); TOTAL PROTEIN, SERUM 6.5 g/dL (6.4-8.2)
[2019-03-08] MEDS: LEVOTHYROXINE SODIUM 100 MCG TABLET PO SCH (06:03)
[2019-03-08 08:40] VITALS: BP 119/84
[2019-03-08] MEDS: AmLODIPine BESYLATE 5 MG TABLET PO SCH (08:50)
[2019-03-08] MEDS: ESCITALOPRAM OXALATE 20 MG TABLET PO SCH (08:50)
[2019-03-08] MEDS: PROPRANOLOL HCL 40 MG TABLET PO SCH (08:50)
[2019-03-08] MEDS: BuPROPion HCL XL 150 MG ER TABLET PO SCH (08:50)
[2019-03-08] MEDS: LORazepam 2 MG TABLET PO PRN (09:47)
== END 2019-03-08 15:10 | disposition home or self-care (01) | DRG 750 ==
LOC: EMS 10:09 → 3EI 18:55
PROVIDERS: ADMIT Psychiatry & Neurology Psychiatry; ATTEND Psychiatry & Neurology Psychiatry
DX: F25.1 Schizoaffective disorder, depressive type (principal); N17.9 Acute kidney failure, unspecified; R45.851 Suicidal ideations; D64.9 Anemia, unspecified; E03.9 Hypothyroidism, unspecified; E78.5 Hyperlipidemia, unspecified; E87.6 Hypokalemia; F19.90 Other psychoactive substance use, unspecified, uncomplicated; F41.9 Anxiety disorder, unspecified; I10 Essential (primary) hypertension; J44.9 Chronic obstructive pulmonary disease, unspecified; Z59.0 Homelessness; Z79.899 Other long term (current) drug therapy; Z87.891 Personal history of nicotine dependence; Z91.5 Personal history of self-harm
CPT/HCPCS: 84132; G0480

== ENCOUNTER 2019-05-25 12:02 | Inpatient (IN) | payer MEDICAID, OTHER ==
[~2019-05-25] VITALS: Ht 177.8 cm; Wt 97.9 kg
[~2019-05-25 12:02] MED LIST changes: -GABA-531 PO; +LEVO100 PO; -LEVO75 PO
[2019-05-25 13:23] LABS: BASOPHILS % (AUTO) 0.5 % (0.0-2.0); EOSINOPHILS % (AUTO) 0.8 % (1.0-6.0); HEMATOCRIT 46.7 % (41-53); HEMOGLOBIN 15.5 g/dL (13.5-17.5); LYMPHOCYTES # (AUTO) 1.9 K/uL (1.0-4.8); LYMPHOCYTES % (AUTO) 18.5 % (22.0-44.0); MEAN CORPUSCULAR HEMOGLOBIN 29.6 pg (26.0-34.0); MEAN CORPUSCULAR HGB CONC 33.2 G/dL (31.0-37.0); MEAN CORPUSCULAR VOLUME 89 fL (80-100); MONOCYTES # (AUTO) 0.6 K/uL (0.1-1.0); MONOCYTES % (AUTO) 5.4 % (2.0-9.0); NEUTROPHILS # (AUTO) 7.8 K/uL (1.8-7.7); NEUTROPHILS % (AUTO) 74.8 % (40.0-70.0); PLATELET COUNT (AUTO) 306 K/uL (150-450); RED BLOOD CELL COUNT(AUTO) 5.25 MIL/uL (4.50-5.90); RED CELL DISTRIBUTION WIDTH 14.4 % (11.5-14.5)
[2019-05-25 13:46] LABS: ANION GAP 12 mmol/L (8-16); CALCIUM, TOTAL 9.2 mg/dL (8.8-10.5); CARBON DIOXIDE 24 mmol/L (22-29); CHLORIDE 106 mmol/L (98-107); CREATININE 1.23 mg/dL (0.60-1.30); GLOMERULAR FILTR. RATE CALC > 60 mL/min (>60); GLUCOSE,RANDOM 107 mg/dL (70-110); POTASSIUM 3.8 mmol/L (3.5-5.1); SODIUM SERUM 142 mmol/L (136-145); UREA NITROGEN, BLOOD 12 mg/dL (7-18)
[2019-05-25 13:49] LABS: ALANINE AMINOTRANSFERASE 20 U/L (12-78); ALBUMIN 3.6 g/dL (3.4-5.0); ALKALINE PHOSPHATASE 53 U/L (46-116); ASPARTATE AMINOTRANSFERASE 17 U/L (15-37); BILIRUBIN,TOTAL 0.4 mg/dL (0.1-1.0); TOTAL PROTEIN, SERUM 7.2 g/dL (6.4-8.2)
[2019-05-25 14:30] LABS: AMPHET/METH SCREEN,URINE POSITIVE (NEGATIVE); BARBITURATE SCREEN, URINE NEGATIVE (NEGATIVE); BENZODIAZEPINES SCREEN,URINE NEGATIVE (NEGATIVE); CANNABINOID SCREEN,URINE NEGATIVE (NEGATIVE); COCAINE SCREEN,URINE NEGATIVE (NEGATIVE); METHADONE SCREEN, URINE NEGATIVE (NEGATIVE); OPIATE SCREEN,URINE NEGATIVE (NEGATIVE)
[2019-05-25 14:32] LABS: PHENCYCLIDINE SCREEN,URINE NEGATIVE (NEGATIVE)
[2019-05-25] MEDS ORDERED: LORazepam 2 MG TABLET PO ONE (17:15)
[2019-05-25] MEDS ORDERED: HALOPERIDOL 5 MG TABLET PO ONE (17:15)
[2019-05-25] MEDS ORDERED: DiphenhydrAMINE HCL 25 MG CAPSULE PO ONE (17:15)
[2019-05-25] MEDS ORDERED: HALOPERIDOL 5 MG TABLET PO PRN (17:45)
[2019-05-25] MEDS ORDERED: GuaiFENesin/D-METHORPHAN [SUGAR-FREE] 200-20MG/10 ML SYRUP UDCUP PO PRN (19:30)
[2019-05-25] MEDS ORDERED: ACETAMINOPHEN 325 MG TABLET PO PRN (19:30)
[2019-05-25] MEDS ORDERED: DOCUSATE SODIUM 100 MG CAPSULE PO PRN (19:30)
[2019-05-25] MEDS ORDERED: PETROLATUM,WHITE 28 GM JELLY TP PRN (19:30)
[2019-05-25] MEDS ORDERED: ONDANSETRON HCL 4 MG TABLET PO PRN (19:30)
[2019-05-25] MEDS ORDERED: NICOTINE 14 MG/24 HOUR PATCH TD PRN (19:30)
[2019-05-25] MEDS ORDERED: ALBUTEROL SULFATE HFA 90 MCG/PUFF 8 GM INHALER IH PRN (19:30)
[2019-05-25] MEDS ORDERED: LOPERAMIDE HCL 2 MG CAPSULE PO PRN (19:30)
[2019-05-25] MEDS ORDERED: CloNIDine HCL 0.1 MG TABLET PO PRN (19:30)
[2019-05-25] MEDS ORDERED: IBUPROFEN 400 MG TABLET PO PRN (19:30)
[2019-05-25] MEDS ORDERED: MAGNESIUM HYDROXIDE SUSPENSION 30 ML UDCUP PO PRN (19:30)
[2019-05-25] MEDS ORDERED: MAG HYDROX/AL HYDROX/SIMETH ES 30 ML SUSPENSION UDCUP PO PRN (19:30)
[2019-05-25] MEDS: PROPRANOLOL HCL 40 MG TABLET PO SCH (20:46)
[2019-05-25] MEDS ORDERED: PROPRANOLOL HCL 10 MG TABLET PO SCH (21:00)
[2019-05-26] MEDS: ZOLPIDEM TARTRATE 5 MG TABLET PO PRN (01:23)
[2019-05-26] MEDS: LORazepam 2 MG TABLET PO PRN ×3 (01:23→16:40)
[2019-05-26] MEDS ORDERED: INFLUENZA VIRUS VACCINE QVS 2019-20 (3YR+)/PF 60 MCG/0.5 ML SYRINGE IM ONE (05:15)
[2019-05-26] MEDS: LEVOTHYROXINE SODIUM 100 MCG TABLET PO SCH (06:28)
[2019-05-26] MEDS: PROPRANOLOL HCL 40 MG TABLET PO SCH ×2 (08:11→16:09)
[2019-05-26] MEDS: AmLODIPine BESYLATE 5 MG TABLET PO SCH (08:24)
[2019-05-26] MEDS ORDERED: PROPRANOLOL HCL 40 MG TABLET PO SCH (09:00)
[2019-05-26 09:11] VITALS: BP 111/62
[2019-05-26 16:07] VITALS: BP 113/68
[2019-05-26] MEDS: OLANZapine 10 MG TABLET PO SCH (20:03)
[2019-05-27 05:54] VITALS: BP 117/76
[2019-05-27] MEDS: LEVOTHYROXINE SODIUM 100 MCG TABLET PO SCH (06:30)
[2019-05-27 08:09] VITALS: BP 114/81
[2019-05-27] MEDS: AmLODIPine BESYLATE 5 MG TABLET PO SCH (08:43)
[2019-05-27] MEDS: ESCITALOPRAM OXALATE 20 MG TABLET PO SCH (08:43)
[2019-05-27] MEDS: BuPROPion HCL XL 150 MG ER TABLET PO SCH (08:44)
[2019-05-27] MEDS: PROPRANOLOL HCL 40 MG TABLET PO SCH ×2 (09:55→16:18)
[2019-05-27 16:02] VITALS: BP 118/72
[2019-05-27] MEDS: LORazepam 2 MG TABLET PO PRN (16:19)
[2019-05-27] MEDS: OLANZapine 10 MG TABLET PO SCH (20:19)
[2019-05-28] MEDS: LEVOTHYROXINE SODIUM 100 MCG TABLET PO SCH (06:30)
[2019-05-28 06:51] VITALS: BP 117/78
[2019-05-28] MEDS: AmLODIPine BESYLATE 5 MG TABLET PO SCH (08:17)
[2019-05-28] MEDS: BuPROPion HCL XL 150 MG ER TABLET PO SCH (08:17)
[2019-05-28] MEDS: PROPRANOLOL HCL 40 MG TABLET PO SCH ×2 (08:18→16:35)
[2019-05-28] MEDS: ESCITALOPRAM OXALATE 20 MG TABLET PO SCH (08:18)
[2019-05-28 09:55] VITALS: BP 106/69
[2019-05-28] MEDS: LORazepam 2 MG TABLET PO PRN ×3 (11:32→22:33)
[2019-05-28 16:27] VITALS: BP 108/72
[2019-05-28] MEDS: ZOLPIDEM TARTRATE 5 MG TABLET PO PRN (20:14)
[2019-05-28] MEDS: OLANZapine 10 MG TABLET PO SCH (20:14)
[2019-05-29 01:40] VITALS: BP 136/75
[2019-05-29] MEDS: LEVOTHYROXINE SODIUM 100 MCG TABLET PO SCH (06:12)
[2019-05-29 08:05] VITALS: BP 139/60
[2019-05-29] MEDS: ESCITALOPRAM OXALATE 20 MG TABLET PO SCH (08:35)
[2019-05-29] MEDS: AmLODIPine BESYLATE 5 MG TABLET PO SCH (08:35)
[2019-05-29] MEDS: PROPRANOLOL HCL 40 MG TABLET PO SCH ×2 (08:40→16:23)
[2019-05-29] MEDS: BuPROPion HCL XL 150 MG ER TABLET PO SCH (08:48)
[2019-05-29] MEDS: LORazepam 2 MG TABLET PO PRN ×2 (16:23→20:48)
[2019-05-29] MEDS: ZOLPIDEM TARTRATE 10 MG TABLET PO PRN (20:48)
[2019-05-29] MEDS: OLANZapine 10 MG TABLET PO SCH (20:48)
[2019-05-30 00:50] VITALS: BP 109/77
[2019-05-30] MEDS: LORazepam 2 MG TABLET PO PRN ×4 (02:50→20:40)
[2019-05-30] MEDS: LEVOTHYROXINE SODIUM 100 MCG TABLET PO SCH (06:12)
[2019-05-30] MEDS: ESCITALOPRAM OXALATE 20 MG TABLET PO SCH (09:20)
[2019-05-30] MEDS: AmLODIPine BESYLATE 5 MG TABLET PO SCH (09:20)
[2019-05-30] MEDS: BuPROPion HCL XL 150 MG ER TABLET PO SCH (09:20)
[2019-05-30] MEDS: PROPRANOLOL HCL 40 MG TABLET PO SCH ×2 (09:20→16:35)
[2019-05-30 16:08] VITALS: BP 110/62
[2019-05-30] MEDS: OLANZapine 10 MG TABLET PO SCH (20:40)
[2019-05-30] MEDS: ZOLPIDEM TARTRATE 10 MG TABLET PO PRN (20:40)
[2019-05-31] MEDS: LEVOTHYROXINE SODIUM 100 MCG TABLET PO SCH (06:30)
[2019-05-31 08:09] VITALS: BP 138/80
[2019-05-31] MEDS: BuPROPion HCL XL 150 MG ER TABLET PO SCH (08:09)
[2019-05-31] MEDS: ESCITALOPRAM OXALATE 20 MG TABLET PO SCH (08:09)
[2019-05-31] MEDS: PROPRANOLOL HCL 40 MG TABLET PO SCH (08:09)
[2019-05-31] MEDS: AmLODIPine BESYLATE 5 MG TABLET PO SCH (08:09)
== END 2019-05-31 14:17 | disposition home or self-care (01) | DRG 750 ==
LOC: EMS 12:04 → B3A 20:34
PROVIDERS: ADMIT Psychiatry & Neurology Psychiatry; ATTEND Psychiatry & Neurology Psychiatry
DX: F25.1 Schizoaffective disorder, depressive type (principal); R45.851 Suicidal ideations; Z59.0 Homelessness; E03.9 Hypothyroidism, unspecified; F11.90 Opioid use, unspecified, uncomplicated; F15.10 Other stimulant abuse, uncomplicated; F17.200 Nicotine dependence, unspecified, uncomplicated; Z71.6 Tobacco abuse counseling; F41.9 Anxiety disorder, unspecified; I10 Essential (primary) hypertension; J44.9 Chronic obstructive pulmonary disease, unspecified; Z79.899 Other long term (current) drug therapy; Z91.5 Personal history of self-harm
CPT/HCPCS: 87081; 90686; G0480

== ENCOUNTER 2019-07-18 14:47 | Inpatient (IN) | payer MEDICAID, OTHER ==
[~2019-07-18] VITALS: Ht 177.8 cm; Wt 89.5 kg
[2019-07-18 15:55] LABS: BASOPHILS % (AUTO) 0.7 % (0.0-2.0); EOSINOPHILS % (AUTO) 0.5 % (1.0-6.0); LYMPHOCYTES # (AUTO) 1.8 K/uL (1.0-4.8); LYMPHOCYTES % (AUTO) 22.1 % (22.0-44.0); MEAN CORPUSCULAR HEMOGLOBIN 29.9 pg (26.0-34.0); MEAN CORPUSCULAR HGB CONC 34.1 G/dL (31.0-37.0); MEAN CORPUSCULAR VOLUME 88 fL (80-100); MONOCYTES # (AUTO) 0.6 K/uL (0.1-1.0); MONOCYTES % (AUTO) 6.9 % (2.0-9.0); NEUTROPHILS # (AUTO) 5.7 K/uL (1.8-7.7); NEUTROPHILS % (AUTO) 69.8 % (40.0-70.0); PLATELET COUNT (AUTO) 309 K/uL (150-450); RED BLOOD CELL COUNT(AUTO) 4.67 MIL/uL (4.50-5.90)
[2019-07-18 16:07] LABS: ANION GAP 9 mmol/L (8-16); CALCIUM, TOTAL 8.8 mg/dL (8.8-10.5); CARBON DIOXIDE 27 mmol/L (22-29); CHLORIDE 106 mmol/L (98-107); CREATININE 1.41 mg/dL (0.60-1.30); GLOMERULAR FILTR. RATE CALC 53 mL/min (>60); GLUCOSE,RANDOM 121 mg/dL (70-110); POTASSIUM 3.6 mmol/L (3.5-5.1); SODIUM SERUM 142 mmol/L (136-145); UREA NITROGEN, BLOOD 11 mg/dL (7-18)
[2019-07-18 16:13] LABS: ALANINE AMINOTRANSFERASE 21 U/L (12-78); ALBUMIN 3.4 g/dL (3.4-5.0); ALKALINE PHOSPHATASE 56 U/L (46-116); ASPARTATE AMINOTRANSFERASE 11 U/L (15-37); BILIRUBIN,TOTAL 0.3 mg/dL (0.1-1.0); TOTAL PROTEIN, SERUM 6.8 g/dL (6.4-8.2)
[2019-07-18] MEDS ORDERED: HALOPERIDOL 5 MG TABLET PO PRN (18:15)
[2019-07-18 22:28] VITALS: BP 139/85
[2019-07-18] MEDS ORDERED: INFLUENZA VIRUS VACCINE QVS 2019-20 (3YR+)/PF 60 MCG/0.5 ML SYRINGE IM ONE (23:45)
[2019-07-19 04:43] VITALS: BP 119/75
[2019-07-19] MEDS ORDERED: MAGNESIUM HYDROXIDE SUSPENSION 30 ML UDCUP PO PRN (08:00)
[2019-07-19] MEDS ORDERED: PETROLATUM,WHITE 28 GM JELLY TP PRN (08:00)
[2019-07-19] MEDS ORDERED: ACETAMINOPHEN 325 MG TABLET PO PRN (08:00)
[2019-07-19] MEDS ORDERED: CloNIDine HCL 0.1 MG TABLET PO PRN (08:00)
[2019-07-19] MEDS ORDERED: ONDANSETRON HCL 4 MG TABLET PO PRN (08:00)
[2019-07-19] MEDS ORDERED: LOPERAMIDE HCL 2 MG CAPSULE PO PRN (08:00)
[2019-07-19] MEDS ORDERED: ALBUTEROL SULFATE HFA 90 MCG/PUFF 8 GM INHALER IH PRN (08:00)
[2019-07-19] MEDS ORDERED: BENZOCAINE/MENTHOL LOZENGE MM PRN (08:00)
[2019-07-19] MEDS ORDERED: OMEPRAZOLE 20 MG CAPSULE PO PRN (08:00)
[2019-07-19] MEDS ORDERED: DOCUSATE SODIUM 100 MG CAPSULE PO PRN (08:00)
[2019-07-19] MEDS ORDERED: MAG HYDROX/AL HYDROX/SIMETH ES 30 ML SUSPENSION UDCUP PO PRN (08:00)
[2019-07-19] MEDS ORDERED: BACITRACIN 28.4 GM OINTMENT TP PRN (08:00)
[2019-07-19] MEDS: AmLODIPine BESYLATE 5 MG TABLET PO SCH (09:42)
[2019-07-19] MEDS: IBUPROFEN 600 MG TABLET PO PRN (09:59)
[2019-07-19 12:43] VITALS: BP 131/75
[2019-07-19 16:19] VITALS: BP 126/76
[2019-07-19 16:39] LABS: AMPHET/METH SCREEN,URINE POSITIVE (NEGATIVE); BARBITURATE SCREEN, URINE NEGATIVE (NEGATIVE); BENZODIAZEPINES SCREEN,URINE NEGATIVE (NEGATIVE); CANNABINOID SCREEN,URINE NEGATIVE (NEGATIVE); COCAINE SCREEN,URINE NEGATIVE (NEGATIVE); METHADONE SCREEN, URINE NEGATIVE (NEGATIVE); OPIATE SCREEN,URINE NEGATIVE (NEGATIVE)
[2019-07-19 16:40] LABS: PHENCYCLIDINE SCREEN,URINE NEGATIVE (NEGATIVE)
[2019-07-19] MEDS: LORazepam 2 MG TABLET PO PRN (16:51)
[2019-07-19] MEDS: OLANZapine 10 MG TABLET PO SCH (20:14)
[2019-07-20] MEDS: LEVOTHYROXINE SODIUM 100 MCG TABLET PO SCH (06:55)
[2019-07-20 08:30] VITALS: BP 130/82
[2019-07-20] MEDS: LORazepam 2 MG TABLET PO PRN (10:41)
[2019-07-20] MEDS: BuPROPion HCL XL 150 MG ER TABLET PO SCH (10:41)
[2019-07-20] MEDS: IBUPROFEN 600 MG TABLET PO PRN (10:41)
[2019-07-20] MEDS: AmLODIPine BESYLATE 5 MG TABLET PO SCH (10:41)
[2019-07-20 17:15] VITALS: BP 109/77
[2019-07-20] MEDS: OLANZapine 10 MG TABLET PO SCH (20:56)
[2019-07-21] MEDS: LEVOTHYROXINE SODIUM 100 MCG TABLET PO SCH (07:00)
[2019-07-21 08:30] VITALS: BP 133/90
[2019-07-21] MEDS: LORazepam 2 MG TABLET PO PRN ×2 (09:38→16:31)
[2019-07-21] MEDS: BuPROPion HCL XL 150 MG ER TABLET PO SCH (09:38)
[2019-07-21] MEDS: AmLODIPine BESYLATE 5 MG TABLET PO SCH (09:38)
[2019-07-21 16:05] VITALS: BP 115/63
[2019-07-21] MEDS: OLANZapine 10 MG TABLET PO SCH (20:52)
[2019-07-22] MEDS: LEVOTHYROXINE SODIUM 100 MCG TABLET PO SCH (06:43)
[2019-07-22 09:06] VITALS: BP 128/74
[2019-07-22] MEDS: LORazepam 2 MG TABLET PO PRN ×3 (10:25→21:05)
[2019-07-22] MEDS: AmLODIPine BESYLATE 5 MG TABLET PO SCH (10:26)
[2019-07-22] MEDS: BuPROPion HCL XL 150 MG ER TABLET PO SCH (10:26)
[2019-07-22 16:46] VITALS: BP 121/87
[2019-07-22] MEDS: IBUPROFEN 600 MG TABLET PO PRN (16:49)
[2019-07-22] MEDS: OLANZapine 10 MG TABLET PO SCH (20:19)
[2019-07-22] MEDS: ZOLPIDEM TARTRATE 10 MG TABLET PO PRN (20:38)
[2019-07-23] MEDS: LEVOTHYROXINE SODIUM 100 MCG TABLET PO SCH (06:45)
[2019-07-23] MEDS: LORazepam 2 MG TABLET PO PRN ×4 (08:31→21:48)
[2019-07-23] MEDS: AmLODIPine BESYLATE 5 MG TABLET PO SCH (08:31)
[2019-07-23] MEDS: BuPROPion HCL XL 150 MG ER TABLET PO SCH (08:31)
[2019-07-23 09:01] VITALS: BP 126/89
[2019-07-23 16:05] VITALS: BP 117/72
[2019-07-23] MEDS: ZOLPIDEM TARTRATE 10 MG TABLET PO PRN (20:07)
[2019-07-23] MEDS: OLANZapine 10 MG TABLET PO SCH (20:07)
[2019-07-23 21:45] VITALS: BP 124/68
[2019-07-24] MEDS: LEVOTHYROXINE SODIUM 100 MCG TABLET PO SCH (06:49)
[2019-07-24] MEDS: AmLODIPine BESYLATE 5 MG TABLET PO SCH (09:19)
[2019-07-24] MEDS: BuPROPion HCL XL 150 MG ER TABLET PO SCH (09:19)
[2019-07-24 09:26] VITALS: BP 112/70
[2019-07-24] MEDS: LORazepam 2 MG TABLET PO PRN ×2 (09:27→13:35)
[2019-07-24] MEDS ORDERED: BUPR-93 PO (16:14)
[2019-07-24] MEDS ORDERED: AMLO5TAB9 PO (16:17)
[2019-07-24] MEDS ORDERED: LEVO100T13 PO (16:18)
[2019-07-24] MEDS ORDERED: OLAN20TA2 PO (16:18)
== END 2019-07-24 17:30 | disposition home or self-care (01) | DRG 885 ==
LOC: EMS 14:51 → 3EI 20:11
PROVIDERS: ADMIT Psychiatry & Neurology Psychiatry; ATTEND Psychiatry & Neurology Psychiatry
DX: F25.9 Schizoaffective disorder, unspecified (principal); R45.851 Suicidal ideations; F15.10 Other stimulant abuse, uncomplicated; F31.9 Bipolar disorder, unspecified; F41.9 Anxiety disorder, unspecified; G47.00 Insomnia, unspecified; I10 Essential (primary) hypertension; F17.210 Nicotine dependence, cigarettes, uncomplicated; K59.00 Constipation, unspecified; G62.9 Polyneuropathy, unspecified; E03.9 Hypothyroidism, unspecified; Z59.0 Homelessness; Z56.0 Unemployment, unspecified; Z72.89 Other problems related to lifestyle; Z71.41 Alcohol abuse counseling and surveillance of alcoholic; Z71.51 Drug abuse counseling and surveillance of drug abuser
CPT/HCPCS: 87081; G0480

== ENCOUNTER 2019-08-09 13:30 | Inpatient (IN) | payer MEDICAID, OTHER ==
[~2019-08-09] VITALS: Ht 165.1 cm; Wt 95.8 kg
[~2019-08-09 13:30] MED LIST changes: -ESCI20TA PO; -LEVO100 PO; +LEVO100T13 PO; -PROP40TA7 PO
[2019-08-09 18:08] LABS: BASOPHILS % (AUTO) 1.1 % (0.0-2.0); EOSINOPHILS % (AUTO) 1.5 % (1.0-6.0); HEMATOCRIT 42.9 % (41-53); HEMOGLOBIN 14.5 g/dL (13.5-17.5); LYMPHOCYTES # (AUTO) 2.3 K/uL (1.0-4.8); LYMPHOCYTES % (AUTO) 27.4 % (22.0-44.0); MEAN CORPUSCULAR HEMOGLOBIN 29.5 pg (26.0-34.0); MEAN CORPUSCULAR HGB CONC 33.8 G/dL (31.0-37.0); MEAN CORPUSCULAR VOLUME 87 fL (80-100); MONOCYTES # (AUTO) 0.6 K/uL (0.1-1.0); MONOCYTES % (AUTO) 7.7 % (2.0-9.0); NEUTROPHILS # (AUTO) 5.2 K/uL (1.8-7.7); NEUTROPHILS % (AUTO) 62.3 % (40.0-70.0); PLATELET COUNT (AUTO) 321 K/uL (150-450); RED BLOOD CELL COUNT(AUTO) 4.91 MIL/uL (4.50-5.90); RED CELL DISTRIBUTION WIDTH 14.4 % (11.5-14.5)
[2019-08-09 18:17] LABS: ANION GAP 10 mmol/L (8-16); CALCIUM, TOTAL 9.2 mg/dL (8.8-10.5); CARBON DIOXIDE 27 mmol/L (22-29); CHLORIDE 102 mmol/L (98-107); CREATININE 1.24 mg/dL (0.60-1.30); GLOMERULAR FILTR. RATE CALC > 60 mL/min (>60); GLUCOSE,RANDOM 114 mg/dL (70-110); POTASSIUM 3.4 mmol/L (3.5-5.1); SODIUM SERUM 139 mmol/L (136-145); UREA NITROGEN, BLOOD 11 mg/dL (7-18)
[2019-08-09 18:23] LABS: ALANINE AMINOTRANSFERASE 27 U/L (12-78); ALBUMIN 3.6 g/dL (3.4-5.0); ALKALINE PHOSPHATASE 67 U/L (46-116); ASPARTATE AMINOTRANSFERASE 18 U/L (15-37); BILIRUBIN,TOTAL 0.5 mg/dL (0.1-1.0)
[2019-08-09] MEDS ORDERED: LORazepam 2 MG/ML VIAL ONE (21:40)
[2019-08-09] MEDS ORDERED: HALOPERIDOL LACTATE 5 MG/ML VIAL ONE (21:41)
[2019-08-09] MEDS ORDERED: DiphenhydrAMINE HCL 50 MG/ML VIAL ONE (21:41)
[2019-08-09] MEDS ORDERED: HALOPERIDOL LACTATE 5 MG/ML VIAL IM ONE (21:45)
[2019-08-09] MEDS ORDERED: DiphenhydrAMINE HCL 50 MG/ML VIAL IM ONE (21:45)
[2019-08-09] MEDS ORDERED: LORazepam 2 MG/ML VIAL IM ONE (21:45)
[2019-08-09 22:02] LABS: AMPHET/METH SCREEN,URINE POSITIVE (NEGATIVE); BARBITURATE SCREEN, URINE NEGATIVE (NEGATIVE); BENZODIAZEPINES SCREEN,URINE NEGATIVE (NEGATIVE); CANNABINOID SCREEN,URINE NEGATIVE (NEGATIVE); COCAINE SCREEN,URINE NEGATIVE (NEGATIVE); METHADONE SCREEN, URINE NEGATIVE (NEGATIVE); OPIATE SCREEN,URINE POSITIVE (NEGATIVE)
[2019-08-09 22:03] LABS: PHENCYCLIDINE SCREEN,URINE NEGATIVE (NEGATIVE)
[2019-08-09] MEDS ORDERED: ONDANSETRON HCL 4 MG TABLET PO PRN (22:45)
[2019-08-09] MEDS ORDERED: CloNIDine HCL 0.1 MG TABLET PO PRN (22:45)
[2019-08-09] MEDS ORDERED: NICOTINE 14 MG/24 HOUR PATCH TD PRN (22:45)
[2019-08-09] MEDS ORDERED: ALBUTEROL SULFATE HFA 90 MCG/PUFF 8 GM INHALER IH PRN (22:45)
[2019-08-09] MEDS ORDERED: MAG HYDROX/AL HYDROX/SIMETH ES 30 ML SUSPENSION UDCUP PO PRN (22:45)
[2019-08-09] MEDS ORDERED: IBUPROFEN 400 MG TABLET PO PRN (22:45)
[2019-08-09] MEDS ORDERED: DOCUSATE SODIUM 100 MG CAPSULE PO PRN (22:45)
[2019-08-09] MEDS ORDERED: MAGNESIUM HYDROXIDE SUSPENSION 30 ML UDCUP PO PRN (22:45)
[2019-08-09] MEDS ORDERED: GuaiFENesin/D-METHORPHAN [SUGAR-FREE] 200-20MG/10 ML SYRUP UDCUP PO PRN (22:45)
[2019-08-09] MEDS ORDERED: ACETAMINOPHEN 325 MG TABLET PO PRN (22:45)
[2019-08-09] MEDS ORDERED: LOPERAMIDE HCL 2 MG CAPSULE PO PRN (22:45)
[2019-08-09] MEDS ORDERED: ZOLPIDEM TARTRATE 10 MG TABLET PO PRN (23:45)
[2019-08-09] MEDS ORDERED: LORazepam 2 MG TABLET PO PRN (23:45)
[2019-08-09] MEDS ORDERED: HALOPERIDOL 5 MG TABLET PO PRN (23:45)
[2019-08-10 16:08] VITALS: BP 106/63
[2019-08-10] MEDS: LORazepam 2 MG TABLET PO PRN (16:13)
[2019-08-11 06:16] VITALS: BP 118/72
[2019-08-11] MEDS: LEVOTHYROXINE SODIUM 100 MCG TABLET PO SCH (06:32)
[2019-08-11] MEDS ORDERED: POTASSIUM CHLORIDE 20 MEQ ER TABLET PO ONE (06:45)
[2019-08-11 07:07] LABS: CHOL/HDL RATIO 5.6 (4.2-7.3)
[2019-08-11] MEDS: AmLODIPine BESYLATE 5 MG TABLET PO SCH (08:42)
[2019-08-11] MEDS: HALOPERIDOL 5 MG TABLET PO PRN ×2 (10:12→14:24)
[2019-08-11] MEDS: LORazepam 2 MG TABLET PO PRN ×3 (10:12→18:24)
[2019-08-11] MEDS: PETROLATUM,WHITE 28 GM JELLY TP PRN (12:22)
[2019-08-11] MEDS: BuPROPion HCL XL 150 MG ER TABLET PO SCH (12:30)
[2019-08-11 16:04] VITALS: BP 119/82
[2019-08-11] MEDS: OLANZapine 10 MG TABLET PO SCH (20:35)
[2019-08-12 04:43] VITALS: BP 124/74
[2019-08-12] MEDS: LEVOTHYROXINE SODIUM 100 MCG TABLET PO SCH (06:14)
[2019-08-12 08:12] VITALS: BP 119/80
[2019-08-12] MEDS: BuPROPion HCL XL 150 MG ER TABLET PO SCH (09:00)
[2019-08-12] MEDS: AmLODIPine BESYLATE 5 MG TABLET PO SCH (09:44)
[2019-08-12] MEDS: LORazepam 2 MG TABLET PO PRN (09:48)
[2019-08-12] MEDS: HALOPERIDOL 5 MG TABLET PO PRN (13:38)
[2019-08-12 16:08] VITALS: BP 119/61
[2019-08-12] MEDS: PETROLATUM,WHITE 28 GM JELLY TP PRN (17:51)
[2019-08-12] MEDS: OLANZapine 10 MG TABLET PO SCH (21:03)
[2019-08-12] MEDS: ZOLPIDEM TARTRATE 10 MG TABLET PO PRN (21:15)
[2019-08-13] MEDS: LEVOTHYROXINE SODIUM 100 MCG TABLET PO SCH (06:46)
[2019-08-13] MEDS: BuPROPion HCL XL 150 MG ER TABLET PO SCH (08:58)
[2019-08-13] MEDS: AmLODIPine BESYLATE 5 MG TABLET PO SCH (08:59)
[2019-08-13 16:01] VITALS: BP 129/65
[2019-08-13] MEDS: HALOPERIDOL 5 MG TABLET PO PRN (17:54)
[2019-08-13] MEDS ORDERED: QUEtiapine FUMARATE 25 MG TABLET PO PRN (18:00)
[2019-08-13] MEDS: OLANZapine 10 MG TABLET PO SCH (20:33)
[2019-08-13] MEDS: ZOLPIDEM TARTRATE 10 MG TABLET PO PRN (20:34)
[2019-08-14] MEDS: LEVOTHYROXINE SODIUM 100 MCG TABLET PO SCH (06:44)
[2019-08-14] MEDS: BuPROPion HCL XL 150 MG ER TABLET PO SCH (08:05)
[2019-08-14] MEDS: AmLODIPine BESYLATE 5 MG TABLET PO SCH (08:05)
[2019-08-14 08:09] VITALS: BP 138/84
[2019-08-14] MEDS ORDERED: GABAPENTIN 300 MG CAPSULE PO PRN (15:15)
[2019-08-14] MEDS: HALOPERIDOL 5 MG TABLET PO PRN (16:03)
[2019-08-14 16:04] VITALS: BP 141/84
[2019-08-14] MEDS: ZOLPIDEM TARTRATE 10 MG TABLET PO PRN (20:13)
[2019-08-14] MEDS: OLANZapine 10 MG TABLET PO SCH (20:13)
[2019-08-15 05:24] VITALS: BP 128/78
[2019-08-15] MEDS: LEVOTHYROXINE SODIUM 100 MCG TABLET PO SCH (06:55)
[2019-08-15 08:17] VITALS: BP 138/76
[2019-08-15] MEDS: AmLODIPine BESYLATE 5 MG TABLET PO SCH (08:28)
[2019-08-15] MEDS: BuPROPion HCL XL 150 MG ER TABLET PO SCH (08:28)
== END 2019-08-15 12:30 | disposition home or self-care (01) | DRG 750 ==
LOC: EMS 13:33 → B3A 08-10 14:12
PROVIDERS: ADMIT Psychiatry & Neurology Child & Adolescent Psychiatry; ATTEND Psychiatry & Neurology Child & Adolescent Psychiatry
DX: F25.9 Schizoaffective disorder, unspecified (principal); R45.851 Suicidal ideations; Z91.14 Patient's other noncompliance with medication regimen; E03.9 Hypothyroidism, unspecified; F10.10 Alcohol abuse, uncomplicated; F31.9 Bipolar disorder, unspecified; I10 Essential (primary) hypertension; Z79.899 Other long term (current) drug therapy
CPT/HCPCS: 84132; 84443; 87081; G0480; J1200; J1630; J2060

== ENCOUNTER 2019-08-24 18:25 | Emergency (ER) | payer MEDICAID, OTHER ==
[~2019-08-24] VITALS: Ht 185.4 cm; Wt 109.1 kg
[2019-08-24 19:11] LABS: BASOPHILS % (AUTO) 0.9 % (0.0-2.0); EOSINOPHILS % (AUTO) 1.6 % (1.0-6.0); HEMATOCRIT 40.1 % (41-53); HEMOGLOBIN 13.7 g/dL (13.5-17.5); LYMPHOCYTES # (AUTO) 2.5 K/uL (1.0-4.8); LYMPHOCYTES % (AUTO) 31.3 % (22.0-44.0); MEAN CORPUSCULAR HEMOGLOBIN 30.1 pg (26.0-34.0); MEAN CORPUSCULAR HGB CONC 34.1 G/dL (31.0-37.0); MEAN CORPUSCULAR VOLUME 88 fL (80-100); MONOCYTES # (AUTO) 0.7 K/uL (0.1-1.0); MONOCYTES % (AUTO) 8.5 % (2.0-9.0); NEUTROPHILS # (AUTO) 4.5 K/uL (1.8-7.7); NEUTROPHILS % (AUTO) 57.7 % (40.0-70.0); PLATELET COUNT (AUTO) 290 K/uL (150-450); RED BLOOD CELL COUNT(AUTO) 4.55 MIL/uL (4.50-5.90); RED CELL DISTRIBUTION WIDTH 14.4 % (11.5-14.5)
[2019-08-24 19:24] LABS: ANION GAP 9 mmol/L (8-16); CALCIUM, TOTAL 8.9 mg/dL (8.8-10.5); CARBON DIOXIDE 29 mmol/L (22-29); CHLORIDE 105 mmol/L (98-107); CREATININE 1.61 mg/dL (0.60-1.30); GLOMERULAR FILTR. RATE CALC 45 mL/min (>60); GLUCOSE,RANDOM 63 mg/dL (70-110); POTASSIUM 4.1 mmol/L (3.5-5.1); SODIUM SERUM 143 mmol/L (136-145); UREA NITROGEN, BLOOD 13 mg/dL (7-18)
[2019-08-24 19:30] LABS: ALANINE AMINOTRANSFERASE 20 U/L (12-78); ALBUMIN 3.6 g/dL (3.4-5.0); ALKALINE PHOSPHATASE 58 U/L (46-116); ASPARTATE AMINOTRANSFERASE 13 U/L (15-37); BILIRUBIN,TOTAL 0.4 mg/dL (0.1-1.0); TOTAL PROTEIN, SERUM 6.7 g/dL (6.4-8.2)
[2019-08-24 20:20] LABS: AMPHET/METH SCREEN,URINE POSITIVE (NEGATIVE); BARBITURATE SCREEN, URINE NEGATIVE (NEGATIVE); BENZODIAZEPINES SCREEN,URINE NEGATIVE (NEGATIVE); CANNABINOID SCREEN,URINE NEGATIVE (NEGATIVE); COCAINE SCREEN,URINE NEGATIVE (NEGATIVE); METHADONE SCREEN, URINE NEGATIVE (NEGATIVE); OPIATE SCREEN,URINE NEGATIVE (NEGATIVE)
[2019-08-24 20:22] LABS: PHENCYCLIDINE SCREEN,URINE NEGATIVE (NEGATIVE)
[2019-08-25] MEDS ORDERED: OLANZapine 5 MG RAPDIS TABLET PO ONE (01:15)
[2019-08-25] MEDS ORDERED: HydrOXYzine HCL 10 MG TABLET PO ONE (01:45)
[2019-08-25 03:39] VITALS: BP 122/59
== END 2019-08-25 03:45 | disposition home or self-care (01) ==
LOC: EMS 18:27
DX: F20.9 Schizophrenia, unspecified (principal); F41.9 Anxiety disorder, unspecified; F31.9 Bipolar disorder, unspecified; I10 Essential (primary) hypertension; F11.90 Opioid use, unspecified, uncomplicated; F19.90 Other psychoactive substance use, unspecified, uncomplicated; Z59.0 Homelessness
CPT/HCPCS: 36415; 80053; 80307; 85025; 99284; G0480